=== PATIENT | female | born 1950 | race Caucasian/White ===

== ENCOUNTER 2016-11-12 11:15 | Outpatient (CLI) | payer BC, OTHER ==
[2016-11-12 20:06] LABS: BASOPHILS % (AUTO) 0.7 %; EOSINOPHILS # (AUTO) 0.2 10^3/uL (0.0-0.7); EOSINOPHILS % (AUTO) 3.7 %; HCT - HEMATOCRIT 40.3 % (37.0-47.0); HGB - HEMOGLOBIN 13.3 g/dL (12.0-16.0); LYMPHOCYTES # (AUTO) 1.9 10^3/uL (1.5-3.5); LYMPHOCYTES % (AUTO) 36.3 %; MEAN CORPUSCULAR HEMOGLOBIN 30.3 pg (27.0-31.0); MEAN PLATELET VOLUME 11.6 fL (7.9-10.8); MONOCYTES # (AUTO) 0.4 10^3/uL (0.0-1.0); NEUTROPHILS # (AUTO) 2.7 10^3/uL (1.5-6.6); NEUTROPHILS % (AUTO) 51.3 %; NUCLEATED RED BLOOD CELLS AUTO 0.1 /100WBC; RED BLOOD COUNT 4.39 10^6/uL (4.20-5.40); RED CELL DISTRIBUTION WIDTH 13.1 % (12.0-15.0); UNCORRECTED WHITE BLOOD COUNT 5.3 x10^3/uL; WHITE BLOOD COUNT 5.3 x10^3/uL (4.8-10.8)
[2016-11-12 20:35] LABS: HEMOGLOBIN A1C 1.37 g/dL
[2016-11-12 21:53] LABS: ALBUMIN/GLOBULIN RATIO 1.2 (1.0-2.2); BUN - BLOOD UREA NITROGEN 8 mg/dL (6-20); CALCIUM 9.6 mg/dL (8.5-10.3); CARBON DIOXIDE - CO2 23 mmol/L (21-32); CHLORIDE 101 mmol/L (101-111); CHOL/HDL RATIO 7.4 (<4.4); CHOLESTEROL 406 mg/dL; CREATININE 0.5 mg/dL (0.4-1.0); GFR - MDRD 124 (>89); GLUCOSE 312 mg/dL (70-100); HDL CHOLESTEROL 55 mg/dL; POTASSIUM 4.2 mmol/L (3.5-5.0); SODIUM 134 mmol/L (135-145); TOTAL PROTEIN 7.7 g/dL (6.7-8.2); TRIGLYCERIDES 1040 mg/dL
[2016-11-12 22:21] LABS: LDL CHOLESTEROL,DIRECT 157 mg/dL
== END 2016-11-12 11:16 | disposition home or self-care (01) ==
LOC: LAB.WCP 11:15
PROVIDERS: ATTEND Physician Assistant Medical
DX: E78.00 Pure hypercholesterolemia, unspecified (principal); E11.9 Type 2 diabetes mellitus without complications; E03.9 Hypothyroidism, unspecified; Z79.899 Other long term (current) drug therapy
CPT/HCPCS: 36415; 80053; 80061; 82043; 83036; 84443; 85025

== ENCOUNTER 2016-12-26 13:20 | Outpatient (CLI) | payer BC, OTHER ==
[2016-12-26 19:39] LABS: ALBUMIN/GLOBULIN RATIO 1.3 (1.0-2.2); BILIRUBIN,TOTAL 0.6 mg/dL (0.2-1.0); CALCIUM 9.2 mg/dL (8.5-10.3); CREATININE 0.5 mg/dL (0.4-1.0); POTASSIUM 3.9 mmol/L (3.5-5.0); TOTAL PROTEIN 7.1 g/dL (6.7-8.2)
== END 2016-12-26 13:21 ==
LOC: LAB.WCP 13:20
PROVIDERS: ATTEND Physician Assistant Medical
DX: K74.3 Primary biliary cirrhosis (principal)
CPT/HCPCS: 36415; 80053

== ENCOUNTER 2017-01-22 14:00 | Outpatient (CLI) | payer BC, OTHER ==
[2017-01-22 19:28] LABS: ALBUMIN/GLOBULIN RATIO 1.2 (1.0-2.2); BILIRUBIN,TOTAL 0.8 mg/dL (0.2-1.0); CALCIUM 9.6 mg/dL (8.5-10.3); CREATININE 0.5 mg/dL (0.4-1.0); POTASSIUM 4.5 mmol/L (3.5-5.0)
== END 2017-01-22 14:01 | disposition home or self-care (01) ==
LOC: LAB.WCP 14:00
PROVIDERS: ATTEND Physician Assistant Medical
DX: K74.3 Primary biliary cirrhosis (principal)
CPT/HCPCS: 36415; 80053

== ENCOUNTER 2018-03-11 13:30 | Outpatient (CLI) | payer MEDICARE, OTHER ==
[2018-03-11 18:48] LABS: BASOPHILS % (AUTO) 0.7 %; EOSINOPHILS # (AUTO) 0.2 10^3/uL (0.0-0.7); EOSINOPHILS % (AUTO) 3.1 %; HGB - HEMOGLOBIN 14.4 g/dL (12.0-16.0); LYMPHOCYTES % (AUTO) 32.5 %; MEAN CORPUSCULAR HGB CONC 32.8 g/dL (32.0-36.0); MEAN CORPUSCULAR VOLUME 91.6 fL (81.0-99.0); MEAN PLATELET VOLUME 11.4 fL (7.9-10.8); MONOCYTES # (AUTO) 0.4 10^3/uL (0.0-1.0); MONOCYTES % (AUTO) 7.1 %; NEUTROPHILS # (AUTO) 3.5 10^3/uL (1.5-6.6); NEUTROPHILS % (AUTO) 56.6 %; PLT - PLATELET COUNT 137 10^3/uL (130-450); RED BLOOD COUNT 4.79 10^6/uL (4.20-5.40); RED CELL DISTRIBUTION WIDTH 13.4 % (12.0-15.0); WHITE BLOOD COUNT 6.1 x10^3/uL (4.8-10.8)
[2018-03-11 19:02] LABS: HB2 TOTAL 16.1 g/dL; HEMOGLOBIN A1C 1.25 g/dL; HEMOGLOBIN A1C % 9.3 % (4.6-6.2)
[2018-03-11 19:08] LABS: ALBUMIN 4.3 g/dL (3.2-5.5); ALBUMIN/GLOBULIN RATIO 1.1 (1.0-2.2); ALKALINE PHOSPHATASE 306 IU/L (42-121); ALT ALANINE AMINOTRANSFERASE 113 IU/L (10-60); AST ASPARTATE AMINOTRANSFERASE 93 IU/L (10-42); BILIRUBIN,TOTAL 1.6 mg/dL (0.2-1.0); BUN - BLOOD UREA NITROGEN 11 mg/dL (6-20); CALCIUM 9.7 mg/dL (8.5-10.3); CARBON DIOXIDE - CO2 22 mmol/L (21-32); CHLORIDE 103 mmol/L (101-111); CHOL/HDL RATIO 5.6 (<4.4); CHOLESTEROL 375 mg/dL; CREATININE 0.5 mg/dL (0.4-1.0); GFR - MDRD 124 (>89); GLUCOSE 159 mg/dL (70-100); HDL CHOLESTEROL 67 mg/dL; SODIUM 139 mmol/L (135-145); TOTAL PROTEIN 8.2 g/dL (6.7-8.2)
[2018-03-11 19:28] LABS: LDL CHOLESTEROL,DIRECT 193 mg/dL; LDLD/HDL RATIO 2.9 (<4.4)
== END 2018-03-11 23:59 | disposition home or self-care (01) ==
LOC: LAB.WCP 13:30
PROVIDERS: ATTEND Physician Assistant Medical
DX: E11.9 Type 2 diabetes mellitus without complications (principal); E78.00 Pure hypercholesterolemia, unspecified; E03.9 Hypothyroidism, unspecified; L73.9 Follicular disorder, unspecified
CPT/HCPCS: 36415; 80053; 80061; 82043; 83036; 83721; 84443; 85025

== ENCOUNTER 2018-11-11 15:17 | Outpatient (CLI) | payer MEDICARE, OTHER ==
[2018-11-11 19:22] LABS: HEMOGLOBIN A1C 0.78 g/dL; HEMOGLOBIN A1C % 7.2 % (4.6-6.2)
[2018-11-11 19:48] LABS: ALBUMIN 4.3 g/dL (3.2-5.5); ALBUMIN/GLOBULIN RATIO 1.1 (1.0-2.2); ALKALINE PHOSPHATASE 205 IU/L (42-121); ALT ALANINE AMINOTRANSFERASE 65 IU/L (10-60); AST ASPARTATE AMINOTRANSFERASE 69 IU/L (10-42); BILIRUBIN,TOTAL 1.2 mg/dL (0.2-1.0); BUN - BLOOD UREA NITROGEN 12 mg/dL (6-20); CALCIUM 9.6 mg/dL (8.5-10.3); CARBON DIOXIDE - CO2 23 mmol/L (21-32); CHLORIDE 103 mmol/L (101-111); CHOL/HDL RATIO 3.8 (<4.4); CHOLESTEROL 258 mg/dL; CREATININE 0.5 mg/dL (0.4-1.0); GFR - MDRD 123 (>89); GLUCOSE 101 mg/dL (70-100); HDL CHOLESTEROL 68 mg/dL; LDL CHOLESTEROL,CALCULATED 148 mg/dL; LDL/HDL RATIO 2.2 (<4.4); SODIUM 139 mmol/L (135-145); TOTAL PROTEIN 8.1 g/dL (6.7-8.2); VLDL CHOLESTEROL 42 mg/dL
== END 2018-11-11 15:18 | disposition home or self-care (01) ==
LOC: LAB.WCP 15:17
PROVIDERS: ATTEND Physician Assistant Medical
DX: E11.9 Type 2 diabetes mellitus without complications (principal); E78.00 Pure hypercholesterolemia, unspecified; E03.9 Hypothyroidism, unspecified
CPT/HCPCS: 36415; 80053; 80061; 83036; 83721; 84443

== ENCOUNTER 2019-02-24 11:39 | Outpatient (CLI) | payer MEDICARE, OTHER ==
[2019-02-24 19:23] LABS: ALBUMIN 4.3 g/dL (3.2-5.5); ALBUMIN/GLOBULIN RATIO 1.3 (1.0-2.2); ALKALINE PHOSPHATASE 172 IU/L (42-121); ALT ALANINE AMINOTRANSFERASE 52 IU/L (10-60); AST ASPARTATE AMINOTRANSFERASE 60 IU/L (10-42); BUN - BLOOD UREA NITROGEN 15 mg/dL (6-20); CALCIUM 9.7 mg/dL (8.5-10.3); CARBON DIOXIDE - CO2 26 mmol/L (21-32); CHLORIDE 106 mmol/L (101-111); CHOL/HDL RATIO 3.6 (<4.4); CHOLESTEROL 281 mg/dL; CREATININE 0.5 mg/dL (0.4-1.0); GFR - MDRD 123 (>89); GLUCOSE 104 mg/dL (70-100); HDL CHOLESTEROL 79 mg/dL; LDL CHOLESTEROL,CALCULATED 156 mg/dL; SODIUM 142 mmol/L (135-145); TOTAL PROTEIN 7.6 g/dL (6.7-8.2); VLDL CHOLESTEROL 46 mg/dL
[2019-02-24 19:42] LABS: HEMOGLOBIN A1C 0.85 g/dL; HEMOGLOBIN A1C % 7.7 % (4.6-6.2)
== END 2019-02-24 23:59 | disposition home or self-care (01) ==
LOC: LAB.WCP 11:39
PROVIDERS: ATTEND Physician Assistant Medical
DX: E11.9 Type 2 diabetes mellitus without complications (principal)
CPT/HCPCS: 36415; 80053; 80061; 83036; 83721

== ENCOUNTER 2019-05-08 08:00 | Outpatient (CLI) | payer MEDICARE, OTHER | END 2019-05-08 23:59 | LOC: LAB.R 08:00 | PROVIDERS: ATTEND Nurse Practitioner Family | DX: R30.0 Dysuria (principal) | CPT/HCPCS: 87086; 87181 ==

== ENCOUNTER 2019-05-27 10:09 | Outpatient (CLI) | payer MEDICARE, OTHER ==
[2019-05-27 13:14] LABS: CALCIUM 9.6 mg/dL (8.5-10.3); CREATININE 0.5 mg/dL (0.4-1.0)
[2019-05-27 13:18] LABS: HB2 TOTAL 14.3 g/dL; HEMOGLOBIN A1C 0.89 g/dL; HEMOGLOBIN A1C % 7.8 % (4.6-6.2)
== END 2019-05-27 23:59 | disposition home or self-care (01) ==
LOC: LAB.WCP 10:09
PROVIDERS: ATTEND Physician Assistant Medical
DX: E11.9 Type 2 diabetes mellitus without complications (principal)
CPT/HCPCS: 36415; 80048; 83036

== ENCOUNTER 2019-09-04 15:00 | Outpatient (CLI) | payer MEDICARE, OTHER ==
[2019-09-04 18:27] LABS: CREATININE 0.6 mg/dL (0.4-1.0)
[2019-09-04 18:33] LABS: CREATININE,URINE 68.4 mg/dL; MICROALBUM/CREATININE RATIO,UR 16.1 ug/mg (<30.0); MICROALBUMIN,URINE 1.1 mg/dL (0-300.0)
[2019-09-04 19:01] LABS: HEMOGLOBIN A1C 1.03 g/dL; HEMOGLOBIN A1C % 8.4 % (4.6-6.2)
== END 2019-09-04 23:59 ==
LOC: LAB.WCP 15:00
PROVIDERS: ATTEND Family Medicine
DX: E11.9 Type 2 diabetes mellitus without complications (principal)
CPT/HCPCS: 36415; 80048; 82043; 82570; 83036

== ENCOUNTER 2020-01-01 13:17 | Outpatient (CLI) | payer MEDICARE, OTHER ==
--- NOTE | 2020-01-05 09:42 | Mammography Report ---
BILATERAL DIGITAL SCREENING MAMMOGRAM 3D/2D: 01/01/2020 CLINICAL: Routine screening. Comparison is made to exams dated: 11/02/2013 mammogram, 01/29/2012 mammogram, and 01/14/2012 mammogram - [facility]. There are scattered fibroglandular elements in both breasts. No significant masses, calcifications, or other findings are seen in either breast. There has been no significant interval change. IMPRESSION: NEGATIVE There is no mammographic evidence of malignancy. A 1 year screening mammogram is recommended. This exam was interpreted at Station ID: [id number]. NOTE: For mammograms, a report in lay terms will be sent to the patient. Approximately 15% of breast malignancies will not be visualized mammographically. In the management of a palpable breast mass, a negative mammogram must not discourage biopsy of a clinically suspicious lesion. Electronically Signed By: Reginaldo Hayward M.D., jr/jordi:01/01/2020 15:17:12 ACR BI-RADS Category 1: Negative 3341F PARENCHYMAL PATTERN: (A) - The breast(s) demonstrate(s) scattered fibroglandular densities. BI-RADS CATEGORY: (1) - 1 RECOMMENDATION: (ANNUAL) - Recommend routine annual screening mammography. 20210101 1 year screening LATERALITY: (B)
== END 2020-01-01 13:18 | disposition home or self-care (01) ==
LOC: DI.N 13:17
DX: Z12.31 Encounter for screening mammogram for malignant neoplasm of breast (principal)
CPT/HCPCS: 77063; 77067

== ENCOUNTER 2020-02-13 14:19 | Emergency (ER) | payer MEDICARE, OTHER | END 2020-02-13 15:14 | disposition left against medical advice (07) | LOC: ED 14:19 | DX: Z53.21 Procedure and treatment not carried out due to patient leaving prior to being seen by health care provider (principal) ==

== ENCOUNTER 2020-02-16 09:36 | Inpatient (IN) | payer MEDICARE, OTHER ==
--- NOTE | 2020-02-16 10:13 | ED Physician Documentation ---
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 HEENT: Other - Present Medications Home Medications: Ambulatory Orders Medication Instructions Recorded Confirmed Lidocaine Patch 5% [Lidoderm Patch] 1 - 3 patch TOP DAILY 09/30/12 12/10/16 Sitagliptin Phos/Metformin HCl 2 tab PO DAILY 09/30/12 12/10/16 [Janumet Xr 100-1,000 mg Tablet] Solifenacin Succinate [Vesicare] 10 mg PO HS 09/30/12 12/10/16 Ursodiol [Zafar Forte] 1 tab PO TID 09/30/12 12/10/16 Levothyroxine [Synthroid] 175 mcg PO DAILY 11/04/13 12/10/16 Oxycodone HCl/Acetaminophen 1 each PO Q4HR PRN #10 tablet 11/04/13 12/10/16 [Percocet 5-325 mg Tablet] Loperamide [Imodium] 2 mg PO ONCE PRN 01/05/15 12/10/16 Melatonin 5 mg PO DAILY 01/05/15 12/10/16 Metoclopramide [Reglan] 10 mg PO Q6H PRN 01/05/15 12/10/16 - Allergies Allergies/Adverse Reactions: Allergies Allergy/AdvReac Type Severity Reaction Status Date / Time No Known Drug Allergies Allergy Verified 02/16/20 09:50 - Social History Does the pt smoke?: No Smoking Status: Never smoker Does the pt have substance abuse?: No - POLST Patient has POLST: Yes Results - Vitals Vitals: Vital Signs - 24 hr 02/16/20 09:53 Temperature 36.5 C Heart Rate 121 H Respiratory 16 Rate Blood Pressure 114/57 L O2 Saturation 97 Oxygen O2 Source Room air
[2020-02-16] MEDS ORDERED: SODIUM CHLORIDE 0.9% 1,000 ML IV STA ×2 (10:38→10:41)
[2020-02-16] MEDS ORDERED: FAMOTIDINE 20 MG/2 ML SYRINGE IVP STA (10:40)
--- NOTE | 2020-02-16 10:41 | ED Physician Documentation ---
PD HPI GI BLEED - Stated complaint Stated Complaint: HEAD INJ/NAUSEA/VOMITING - Chief complaint Chief Complaint: Trauma Hd/Nk - History obtained from History obtained from: Patient - History of Present Illness Timing - onset: Today, Yesterday Timing - details: Abrupt onset Associated symptoms: Vomiting (today), Hematemesis, Black/tarry stool (yesterday ) Contributing factors: NSAID use (She had fallen forward into the right with injury of the right ankle and knee 3 days ago and did strike her head. No loss of consciousness. She has been using ibuprofen regularly for the last 3 days for the pains of it. Noted onset of dark stool/ upset stomach last night and vomited blood today.). No: Sick contact, Bad food Improved by: No: Vomiting Worsened by: Eating Similar symptoms before: Has not had sx before Recently seen: Not recently seen Review of Systems Constitutional: denies: Fever, Chills Nose: denies: Rhinorrhea / runny nose, Congestion Throat: denies: Sore throat Cardiac: denies: Chest pain / pressure Respiratory: denies: Dyspnea, Cough GI: reports: Nausea, Vomiting, Hematemesis. denies: Abdominal Pain Musculoskeletal: reports: Extremity pain (right ankle and knee for 3 days). denies: Neck pain, Back pain Neurologic: reports: Generalized weakness (today). denies: Focal weakness, Numbness PD PAST MEDICAL HISTORY - Past Medical History Cardiovascular: None Respiratory: None Endocrine/Autoimmune: Type 2 diabetes, HyPOthyroidism GI: Hepatitis, Other (she denies cirrhosis/varices/upper GI bleed. Prior hepatitis without current elevation LFTs. No alcohol use. 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 HEENT: Other - Present Medications Home Medications: Ambulatory Orders Medication Instructions Recorded Confirmed Lidocaine Patch 5% [Lidoderm Patch] 1 - 3 patch TOP DAILY 09/30/12 12/10/16 Sitagliptin Phos/Metformin HCl 2 tab PO DAILY 09/30/12 12/10/16 [Janumet Xr 100-1,000 mg Tablet] Solifenacin Succinate [Vesicare] 10 mg PO HS 09/30/12 12/10/16 Ursodiol [Zafar Forte] 1 tab PO TID 09/30/12 12/10/16 Levothyroxine [Synthroid] 175 mcg PO DAILY 11/04/13 12/10/16 Oxycodone HCl/Acetaminophen 1 each PO Q4HR PRN #10 tablet 11/04/13 12/10/16 [Percocet 5-325 mg Tablet] Loperamide [Imodium] 2 mg PO ONCE PRN 01/05/15 12/10/16 Melatonin 5 mg PO DAILY 01/05/15 12/10/16 Metoclopramide [Reglan] 10 mg PO Q6H PRN 01/05/15 12/10/16 - Allergies Allergies/Adverse Reactions: Allergies Allergy/AdvReac Type Severity Reaction Status Date / Time No Known Drug Allergies Allergy Verified 02/16/20 09:50 - Social History Does the pt smoke?: No Smoking Status: Never smoker Does the pt have substance abuse?: No - POLST Patient has POLST: Yes PD ED PE NORMAL - Vitals Vital signs reviewed: Yes - General General: Alert and oriented X 3, No acute distress, Well developed/nourished - HEENT HEENT: Other (back of head with 2.5 cm laceration through scalp, without FB nor signs of infection. ) - Neck Neck: Supple, no meningeal sign, No bony TTP, No adenopathy - Cardiac Cardiac: RRR (regular but tachycardic. ), No murmur - Respiratory Respiratory: Clear bilaterally, Other (no chestwall tenderness. ) - Abdomen Abdomen: Soft, Non distended, Other (mild tenderness epigastric area without guarding. ). No: Normal bowel sounds (decreased) - Back Back: No CVA TTP, No spinal TTP - Derm Derm: Normal color, Warm and dry - Extremities Extremities: Other (right ankle with some lateral tenderness, no swelling, no deformity. Right knee with some anterior tenderness without efffusion nor bony tenderness. No laxity on stress testing. ) - Neuro Neuro: Alert and oriented X 3, No motor deficit, No sensory deficit, Normal speech Results - Vitals Vitals: Vital Signs - 24 hr 02/16/20 02/16/20 02/16/20 09:53 10:26 10:30 Temperature 36.5 C Heart Rate 121 H 117 H 114 H Respiratory 16 26 H 22 Rate Blood Pressure 114/57 L 109/71 100/72 O2 Saturation 97 98 96 02/16/20 02/16/20 02/16/20 11:00 11:30 12:00 Temperature Heart Rate 113 H 108 H 108 H Respiratory 23 22 23 Rate Blood Pressure 98/66 121/65 106/71 O2 Saturation 96 97 100 02/16/20 02/16/20 02/16/20 12:30 13:00 13:30 Temperature Heart Rate 105 H 104 H 104 H Respiratory 22 20 27 H Rate Blood Pressure 95/51 L 107/59 L 128/72 O2 Saturation 97 97 95 Oxygen O2 Source Room air - Labs Labs: Laboratory Tests 02/16/20 02/16/20 02/16/20 10:08 10:08 10:08 WBC 11.2 H RBC 4.15 L Hgb 12.6 Hct 39.7 MCV 95.7 MCH 30.4 MCHC 31.7 L RDW 13.2 Plt Count 184 MPV 13.0 H Neut # (Auto) 6.7 H Lymph # (Auto) 3.2 [place] # (Auto) 0.9 Eos # (Auto) 0.4 Baso # (Auto) 0.1 Absolute Nucleated RBC 0.00 Nucleated RBC % 0.0 Sodium 134 L Potassium 4.7 Chloride 100 L Carbon Dioxide 21 Anion Gap 13.0 BUN 45 H Creatinine 0.7 Estimated GFR (MDRD) 83 L Glucose 337 H Calcium 9.3 Total Bilirubin 1.3 H AST 53 H ALT 62 H Alkaline Phosphatase 221 H Total Protein 7.1 Albumin 3.7 Globulin 3.4 Albumin/Globulin Ratio 1.1 Lipase 47 Urine Color Urine Clarity Urine pH Ur Specific [place] Urine Protein Urine Glucose (UA) Urine Ketones Urine Occult Blood Urine Nitrite Urine Bilirubin Urine Urobilinogen Ur Leukocyte Esterase Urine RBC Urine WBC Ur Squamous Epith Cells Urine Bacteria Ur Microscopic Review Urine Culture Comments Urine Opiates Screen Ur Oxycodone Screen Urine Methadone Screen Ur Propoxyphene Screen Ur Barbiturates Screen Ur Tricyclics Screen Ur Phencyclidine Scrn Ur Amphetamine Screen U Methamphetamines Scrn U Benzodiazepines Scrn Urine Cocaine Screen U Cannabinoids Screen Serum Ketones Blood Type Blood Type Recheck O POSITIVE Antibody Screen 02/16/20 02/16/20 02/16/20 10:08 10:53 12:10 WBC RBC Hgb Hct MCV MCH MCHC RDW Plt Count MPV Neut # (Auto) Lymph # (Auto) [place] # (Auto) Eos # (Auto) Baso # (Auto) Absolute Nucleated RBC Nucleated RBC % Sodium Potassium Chloride Carbon Dioxide Anion Gap BUN Creatinine Estimated GFR (MDRD) Glucose Calcium Total Bilirubin AST ALT Alkaline Phosphatase Total Protein Albumin Globulin Albumin/Globulin Ratio Lipase Urine Color YELLOW Urine Clarity CLEAR Urine pH 5.0 Ur Specific [place] <=1.005 Urine Protein NEGATIVE Urine Glucose (UA) >=1000 H Urine Ketones 15 H Urine Occult Blood NEGATIVE Urine Nitrite POSITIVE H Urine Bilirubin NEGATIVE Urine Urobilinogen 0.2 (NORMAL) Ur Leukocyte Esterase NEGATIVE Urine RBC None Seen Urine WBC 6-10 H Ur Squamous Epith Cells MOD Squamous H Urine Bacteria Rare Ur Microscopic Review INDICATED Urine Culture Comments NOT INDICATED Urine Opiates Screen Ur Oxycodone Screen Urine Methadone Screen Ur Propoxyphene Screen Ur Barbiturates Screen Ur Tricyclics Screen Ur Phencyclidine Scrn Ur Amphetamine Screen U Methamphetamines Scrn U Benzodiazepines Scrn Urine Cocaine Screen U Cannabinoids Screen Serum Ketones NEGATIVE Blood Type O POSITIVE Blood Type Recheck Antibody Screen NEGATIVE 02/16/20 12:10 WBC RBC Hgb Hct MCV MCH MCHC RDW Plt Count MPV Neut # (Auto) Lymph # (Auto) [place] # (Auto) Eos # (Auto) Baso # (Auto) Absolute Nucleated RBC Nucleated RBC % Sodium Potassium Chloride Carbon Dioxide Anion Gap BUN Creatinine Estimated GFR (MDRD) Glucose Calcium Total Bilirubin AST ALT Alkaline Phosphatase Total Protein Albumin Globulin Albumin/Globulin Ratio Lipase Urine Color Urine Clarity Urine pH Ur Specific [place] Urine Protein Urine Glucose (UA) Urine Ketones Urine Occult Blood Urine Nitrite Urine Bilirubin Urine Urobilinogen Ur Leukocyte Esterase Urine RBC Urine WBC Ur Squamous Epith Cells Urine Bacteria Ur Microscopic Review Urine Culture Comments Urine Opiates Screen NEGATIVE Ur Oxycodone Screen NEGATIVE Urine Methadone Screen NEGATIVE Ur Propoxyphene Screen NEGATIVE Ur Barbiturates Screen NEGATIVE Ur Tricyclics Screen NEGATIVE Ur Phencyclidine Scrn NEGATIVE Ur Amphetamine Screen NEGATIVE U Methamphetamines Scrn NEGATIVE U Benzodiazepines Scrn NEGATIVE Urine Cocaine Screen NEGATIVE U Cannabinoids Screen NEGATIVE Serum Ketones Blood Type Blood Type Recheck Antibody Screen - Rads (name of study) right ankle Radiology: Prelim report reviewed (no fractures), See rad report right knee Radiology: Prelim report reviewed (no fractures), See rad report head CT Radiology: Prelim report reviewed (no ICH nor acute process), See rad report abd CT Radiology: Prelim report reviewed (normal liver. some liver steatosis. No masses. s/p CCY. ), See rad report Procedures - Laceration (location) scalp Length in cm: 2.5 Wound type: Into subcut fat, Clean Anesthesia: Lidocaine 1% with epi Wound Preparation: Wound explored, To the base. No: FB identified Skin layer closure: Nylon, Adam Other: Patient tolerated well, Tetanus UTD Complexity: Simple PD MEDICAL DECISION MAKING - ED course Complexity details: reviewed results, re-evaluated patient, considered differential (Patient reports hematemesis today of moderate amount to a large amount and some dark stool yesterday. We will obtain stools test for guaiac. However she pretty clearly describes hematemesis and is tachycardic with a slightly low blood pressure), d/w patient ED course: She has been using NSAIDs status post ankle knee and head injury 3 days ago and now has apparent upper GI bleed. Presumed NSAID induced gastritis or ulcer. She is given IV medications for this as well as IV fluids and antiemetic. Am concerned about the persistent tachycardia even after fluids and the worried about the degree of ongoing bleeding inapparent clinically due to GI location. Departure - Departure Disposition: [facility] DC/Xfer Clinical Impression: Upper GI bleeding, Tachycardia Ankle sprain Qualifiers: Encounter type: initial encounter Involved ligament of ankle: unspecified ligament Laterality: right Qualified Code(s): S93.401A - Sprain of unspecified ligament of right ankle, initial encounter Scalp laceration Qualifiers: Encounter type: initial encounter Qualified Code(s): S01.01XA - Laceration without foreign body of scalp, initial encounter Fall from slip, trip, or stumble Qualifiers: Encounter type: initial encounter Qualified Code(s): W01.0XXA - Fall on same level from slipping, tripping and stumbling without subsequent striking against object, initial encounter Hematemesis Qualifiers: Nausea presence: with nausea Qualified Code(s): K92.0 - Hematemesis Condition: Stable Record reviewed to determine appropriate education?: Yes Discharge Date/Time: 02/16/20 14:10
[2020-02-16 10:50] LABS: BASOPHILS # (AUTO) 0.1 10^3/uL (0.0-0.1); BASOPHILS % (AUTO) 0.8 %; EOSINOPHILS # (AUTO) 0.4 10^3/uL (0.0-0.7); EOSINOPHILS % (AUTO) 3.2 %; HGB - HEMOGLOBIN 12.6 g/dL (12.0-16.0); LYMPHOCYTES # (AUTO) 3.2 10^3/uL (1.5-3.5); LYMPHOCYTES % (AUTO) 28.1 %; MEAN CORPUSCULAR HEMOGLOBIN 30.4 pg (27.0-31.0); MEAN CORPUSCULAR HGB CONC 31.7 g/dL (32.0-36.0); MEAN CORPUSCULAR VOLUME 95.7 fL (81.0-99.0); MONOCYTES # (AUTO) 0.9 10^3/uL (0.0-1.0); MONOCYTES % (AUTO) 7.6 %; NEUTROPHILS # (AUTO) 6.7 10^3/uL (1.5-6.6); NEUTROPHILS % (AUTO) 59.6 %; PLT - PLATELET COUNT 184 10^3/uL (130-450); RED BLOOD COUNT 4.15 10^6/uL (4.20-5.40); RED CELL DISTRIBUTION WIDTH 13.2 % (12.0-15.0); WHITE BLOOD COUNT 11.2 x10^3/uL (4.8-10.8)
[2020-02-16] MEDS ORDERED: IOVERSOL 320 100 ML VIAL IVP ONE ×2 (10:53→18:48)
[2020-02-16 11:00] LABS: ALBUMIN 3.7 g/dL (3.2-5.5); ALBUMIN/GLOBULIN RATIO 1.1 (1.0-2.2); BILIRUBIN,TOTAL 1.3 mg/dL (0.2-1.0); CALCIUM 9.3 mg/dL (8.5-10.3); CREATININE 0.7 mg/dL (0.4-1.0); TOTAL PROTEIN 7.1 g/dL (6.7-8.2)
--- NOTE | 2020-02-16 11:19 | XRAY Report ---
PROCEDURE: Ankle 3 View RT INDICATIONS: Trauma, fall with ankle and knee injury TECHNIQUE: 3 views of the ankle were acquired. COMPARISON: None FINDINGS: Bones: No fractures or dislocations. Ankle mortise is normally aligned. No suspicious bony lesions . Soft tissues: No tibiotalar joint effusion. Achilles tendon appears normal. IMPRESSION: No acute finding. Reviewed by: Reginaldo Hayward MD on 02/16/2020 11:17 AM PDT Approved by: Reginaldo Hayward MD on 02/16/2020 11:17 AM PDT Station ID: [id number]
--- NOTE | 2020-02-16 11:20 | XRAY Report ---
PROCEDURE: Knee 3 View RT INDICATIONS: Trauma, fall with ankle/knee injury TECHNIQUE: 3 views of the right knee(s) were acquired. COMPARISON: None. FINDINGS: Bones: No fractures or dislocations. No suspicious bony lesions. Soft tissues: No joint effusion. No suspicious soft tissue calcifications. IMPRESSION: No acute finding. Reviewed by: Reginaldo Hayward MD on 02/16/2020 11:18 AM PDT Approved by: Reginaldo Hayward MD on 02/16/2020 11:18 AM PDT Station ID: [id number]
--- NOTE | 2020-02-16 11:24 | CT Report ---
PROCEDURE: HEAD WO INDICATIONS: Trauma, fall, struck head; vomiting TECHNIQUE: Noncontrast 4.5 mm thick angled axial sections acquired from the foramen magnum to the vertex. For r adiation dose reduction, the following was used: automated exposure control, adjustment of mA and/or kV according to patient size. COMPARISON: None. FINDINGS: Image quality: Excellent. CSF spaces: Basal cisterns are patent. No extra-axial fluid collections. Ventricles are normal in size and shape. Brain: No midline shift. No intracranial masses or hemorrhage. Momin-white matter interface is norm al. Skull and face: Calvarium and visualized facial bones are intact, without suspicious lesions. Sinuses: Visualized sinuses and mastoids are clear. IMPRESSION: No acute intracranial finding. Reviewed by: Reginaldo Hayward MD on 02/16/2020 11:23 AM PDT Approved by: Reginaldo Hayward MD on 02/16/2020 11:23 AM PDT Station ID: [id number]
--- NOTE | 2020-02-16 12:05 | CT Report ---
PROCEDURE: Abdomen/Pelvis W INDICATIONS: Abdominal pain, acute, nonlocalized CONTRAST: IV CONTRAST: Optiray 320 ml: 100 PO CONTRAST: *NO PO CONTRAST TECHNIQUE: After the administration of weight appropriate dose of intravenous contrast, 5 mm thick sections acqu ired from the diaphragms to the symphysis. 5 mm thick coronal and sagittal reformats were acquired. For radiation dose reduction, the following was used: automated exposure control, adjustment of mA and/or kV according to patient size. COMPARISON: None. FINDINGS: Image quality: Excellent. ABDOMEN: Lung bases: Lung bases are clear. Heart size is normal. Solid organs: Liver and spleen are normal in size and enhancement. Diffuse hepatic steatosis. Gallbl adder is surgically absent. Biliary system is non dilated. Pancreas enhances normally. No adrenal nodules. Coarse adrenal calcifications are visualized bilaterally. This is likely related to sequela of remote infection/inflammation or hemorrhage. Kidneys demonstrate normal size and enhancement, with out hydronephrosis. Peritoneum and bowel: Scattered colonic diverticulosis with minimal peridiverticular stranding in the left paracolic gutter involving a short segment of the mid to distal descending colon. No evidence f or perforation or abscess formation. There is also a segment of nonspecific circumferential wall thic kening and minimal fluid/. Distention of the loop of proximal small bowel in the mid abdomen. Otherwi se, visualized bowel loops demonstrate normal wall thickness and caliber. No free fluid or air. Norm al appendix. Nodes and vessels: No retroperitoneal or mesenteric adenopathy by size criteria. Aorta and inferior vena cava are normal in size. Scattered atherosclerotic calcifications of the abdominal aorta Miscellaneous: No ventral hernias. Apparent postsurgical changes near the midline ventral abdomen a t the level of the umbilicus. PELVIS: Genitourinary: Bladder wall thickness is normal. Surgical clips noted in the left pelvis sidewall. Miscellaneous: No inguinal hernias or adenopathy. Bones: No suspicious bony lesions. No acute vertebral body compression fractures. Multilevel spondy losis. IMPRESSION: 1. Scattered colonic diverticula with minimal peridiverticular stranding involving a segment of mid t o distal descending colon compatible with acute diverticulitis. No evidence for perforation or absces s formation. 2. A segment of circumferential minimal bowel wall thickening with fluid/air distention of a segment of proximal small bowel in the midabdomen which may be related to peristalsis versus nonspecific ente ritis either infectious or inflammatory. 3. Normal appendix. 4. Status post cholecystectomy. 5. Other chronic findings as above. Reviewed by: Dustin Martin MD on 02/16/2020 12:04 PM PDT Approved by: Dustin Martin MD on 02/16/2020 12:04 PM PDT Station ID: [id number]
[2020-02-16] MEDS ORDERED: PANTOPRAZOLE 40 MG VIAL IVP STA (12:08)
[2020-02-16 12:29] LABS: BILIRUBIN,URINE NEGATIVE (NEGATIVE); GLUCOSE, URINE (UA) >=1000 mg/dL (NEGATIVE); KETONES,URINE (UA) 15 mg/dL (NEGATIVE); LEUKOCYTE ESTERASE, URINE NEGATIVE (NEGATIVE); NITRITE,URINE POSITIVE (NEGATIVE); OCCULT BLOOD,URINE NEGATIVE (NEGATIVE); PROTEIN,URINE NEGATIVE (NEGATIVE); UROBILINOGEN,URINE 0.2 (NORMAL) E.U./dL (NORMAL)
[2020-02-16 12:33] LABS: CLARITY,URINE CLEAR (CLEAR)
[2020-02-16] MEDS ORDERED: LIDOCAINE 1%-EPI 1:100000 20 ML MDV SUBQ STA (12:34)
[2020-02-16 12:43] LABS: BACTERIA,URINE Rare /HPF (None Seen); RBC,URINE None Seen /HPF (0-5); SQUAMOUS EPITHELIAL CELL,UR MOD Squamous (<= Few)
[2020-02-16] MEDS ORDERED: ACETAMINOPHEN 325 MG TABLET PO PRN (13:33)
[2020-02-16] MEDS ORDERED: ONDANSETRON 4 MG/2 ML VIAL IVP PRN (13:33)
[2020-02-16] MEDS ORDERED: SODIUM CHLORIDE FLUSH 0.9% 10 ML SYRINGE IVP PRN (13:33)
[2020-02-16] MEDS ORDERED: INSULIN ASPART 300 UNIT/3 ML PEN SUBQ ONE (13:39)
[2020-02-16 13:45] LABS: MUDS CUTOFF CONCENTRATIONS CUTOFF CONC BELOW:
[2020-02-16 14:00] LABS: AMPHETAMINE SCREEN,URINE NEGATIVE (NEGATIVE); BENZODIAZEPINES SCREEN, URINE NEGATIVE (NEGATIVE); COCAINE SCREEN URINE NEGATIVE (NEGATIVE); METHADONE SCREEN, URINE NEGATIVE (NEGATIVE); METHAMPHETAMINES SCREEN, URINE NEGATIVE (NEGATIVE); OPIATE SCREEN, URINE NEGATIVE (NEGATIVE); OXYCODONE SCREEN, URINE NEGATIVE (NEGATIVE); PROPOXYPHENE SCREEN, URINE NEGATIVE (NEGATIVE); TRICYCLIC ANTIDEPRESSANT,URINE NEGATIVE (NEGATIVE)
[2020-02-16] MEDS: SODIUM CHLORIDE 0.9% 1,000 ML IV SCH (14:20)
--- NOTE | 2020-02-16 14:33 | HISTORY & PHYSICAL EXAMINATION ---
Chief Complaint - Chief Complaint Chief Complaint: GI bleed History of Present Illness - Admitted From Admitted From:: ER - History Obtained From Records Reviewed: [facility] History obtained from: pt Exam Limitations: no - History of Present Illness HPI Comment/Other: This is a 78-old female with a past medical history significant for diabetes 2, hypothyroidism, chronic hepatitis from previous food poisoning, Osteoarthritis, who present ER Complaint of fall in home, vomiting blood and dark stool. Patient reported she had a fall in the home, hit of her head and right ankle. CT of the head and x-ray of the ankle was unremarkable. Patient reported she might also loss of conscious but she did not ensure When she had a fall in the home. Because of pain in the head and right ankle from the fall, then she took ibuprofen for 3 days. She took 800 mg ibuprofen every 6 hours for 3 days.Then today she had 3 times vomiting with blood. She also reported she had dark stool with diarrhea on today but no diarrhea right now. She also reported some abdominal discomfort and pain in her low abdominal area. She denies chest pain, fever, short of shortness of breathing. X-ray of ankle, knee, T of the brain, chest x-ray are all unremarkable. CAT scan of the abdomen show distal descending colon compatible with acute diverticulitis, No evidence for perforation or abscess formation. A segment of circumferential minimal bowel wall thickening with fluids air distention of segment of proximal small bowel which may be related to enteritis of infection or inflammation. Patient was admitted for evaluation and treatment of GI bleed, and fall. Discussed the care goal with the patient, patient state she want full code. History - Past Medical History Cardiovascular: reports: None Respiratory: reports: None Endocrine/Autoimmune: reports: Type 2 diabetes, HyPOthyroidism GI: reports: Hepatitis, Other (she denies cirrhosis/varices/upper GI bleed. Prior hepatitis without current elevation LFTs. No alcohol use. 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 Her mother from dialysis complication and pneumonia at age 82. Social History Notes: Patient report she quit smoking 20 years ago, she deny alcohol or drug issue. She is living with her at [place], she had her 2 children - POLST Patient has POLST: Yes Meds/Allgy - Home Medications Home Medications: Ambulatory Orders Medication Instructions Recorded Confirmed Lidocaine Patch 5% [Lidoderm Patch] 1 - 3 patch TOP DAILY 09/30/12 12/10/16 Sitagliptin Phos/Metformin HCl 2 tab PO DAILY 09/30/12 12/10/16 [Janumet Xr 100-1,000 mg Tablet] Solifenacin Succinate [Vesicare] 10 mg PO HS 09/30/12 12/10/16 Ursodiol [Zafar Forte] 1 tab PO TID 09/30/12 12/10/16 Levothyroxine [Synthroid] 175 mcg PO DAILY 11/04/13 12/10/16 Oxycodone HCl/Acetaminophen 1 each PO Q4HR PRN #10 tablet 11/04/13 12/10/16 [Percocet 5-325 mg Tablet] Loperamide [Imodium] 2 mg PO ONCE PRN 01/05/15 12/10/16 Melatonin 5 mg PO DAILY 01/05/15 12/10/16 Metoclopramide [Reglan] 10 mg PO Q6H PRN 01/05/15 12/10/16 - Allergies Allergies/Adverse Reactions: Allergies Allergy/AdvReac Type Severity Reaction Status Date / Time No Known Drug Allergies Allergy Verified 02/16/20 09:50 Review of Systems - Constitutional Constitutional: reports: Fatigue, Weakness. denies: Fever, Chills, Poor appetite, Night sweats - Eyes Eyes: denies: Pain, Field loss, Vision loss - Ears, Nose & Throat Ears, Nose & Throat: denies: Ear pain, Nasal pain, Nosebleeds, Mouth lesions, Bleeding gums - Cardiovascular Cariovascular: reports: Syncope. denies: Irregular heart rate, Palpitations, Chest pain, Edema, Lightheadedness, Exertional dyspnea, Decr. exercise tolerance - Respiratory Respiratory: denies: Cough, Sputum production, Wheezing, Hemoptysis, Orthopnea, SOB at rest, SOB with exertion - Gastrointestinal Gastrointestinal: reports: Abdominal pain, Diarrhea, Black stools, Nausea, Vomiting, Coffee grounds emesis. denies: Constipation, Change in bowel habits, Rectal bleeding, Bloody stools, Brad blood emesis - Genitourinary Genitourinary: denies: Dysuria, Hematuria - Musculoskeletal Musculoskeletal: reports: Joint swelling. denies: Muscle pain, Limited range of motion, Muscle weakness - Integumentary Integumentary: denies: Rash, Dryness - Neurological Neurological: reports: General weakness. denies: Focal weakness, Headache, Dizziness, Numbness, Memory problems, Pre-existing deficit, Abnormal gait, Seiz ures, Incoordination, Slurred speech - Psychiatric Psychiatric: denies: Suicidal, Delusions, Hallucinations - Endocrine Endocrine: denies: Polyuria - Hematologic/Lymphatic Hematologic/Lymphatic: denies: Bruising, Blood clots Exam - Vital Signs Vital Signs: Vital Signs x48h Temp Pulse Pulse Resp BP BP Pulse Ox 02/16/20 14:22 37.1 C 108 H 17 117/63 98 02/16/20 14:00 37.1 C 105 H 24 122/100 H 100 02/16/20 13:30 104 H 27 H 128/72 95 02/16/20 13:00 104 H 20 107/59 L 97 02/16/20 12:30 105 H 22 95/51 L 97 02/16/20 12:00 108 H 23 106/71 100 02/16/20 11:30 108 H 22 121/65 97 02/16/20 11:00 113 H 23 98/66 96 02/16/20 10:30 114 H 22 100/72 96 02/16/20 10:26 117 H 26 H 109/71 98 02/16/20 09:53 36.5 C 121 H 16 114/57 L 97 - Physical Exam General Appearance: positive: No acute distress, Alert. negative: Lethargic Eyes Bilateral: positive: Normal inspection, PERRL, No lid inflammation ENT: positive: ENT inspection nml, No signs of dehydration. negative: Purulent nasal drainage Neck: positive: Nml inspection, Thyroid nml, Trachea midline. negative: Thyro megaly, Stiff neck, Tracheal deviation Respiratory: positive: Chest non-tender, No respiratory distress, Breath sounds nml. negative: Wheezes, Rales, Rhonchi Cardiovascular: positive: Regular rate & rhythm, Tachycardia. negative: No murmur, No gallop, Irregularly irregular, Bradycardia, Systolic murmur, Diastolic murmur Peripheral Pulses: positive: 2+ Abdomen: positive: Non-tender, No organomegaly, Nml bowel sounds, No distention. negative: Tenderness Back: positive: Nml inspection Skin: positive: Color nml, No rash, Warm, Dry. negative: Cyanosis, Diaphoresis, Pallor Extremities: positive: Non-tender, Nml appearance. negative: Calf tenderness Neurologic/Psychiatric: positive: Oriented x3, Sensation nml, Mood/affect nml. negative: Weakness, Sensory loss, Facial droop, Slurred/abnml speech, Depressed mood/affect Conclusion/Plan - Problem List (1) Hematemesis Conclusion/Plan: Patient reported she had three times of vomiting of blood after She take lots of ibuprofen. She reported she take 800 mg ibuprofen every 6 hours for 3 days. GHGB is 12.6 now. We will hold NSAIDs, Started with Protonix intravenous twice daily, Continue H&H to monitor hemoglobin, Consult with surgeon. Qualifiers: Nausea presence: with nausea Qualified Code(s): K92.0 - Hematemesis (2) Dark stools Conclusion/Plan: Patient reported she had a dark stool in the home, likely from upper GI bleed. Patient had a BUN 45. We will give patient IV Protonix, H&H monitor hemoglobin.Consult with GI surgeon (3) Tachycardia Conclusion/Plan: Patient had a tachycardia below 110. EKG showed sinus tachycardia. Likely from patient GI bleed, decreased hemoglobin. Patient denying chest pain, shortness of breathing. We will continue director web patient. We will do echo for patient since patient did not show she lost conscious when she had a fall in the home. (4) Fall Conclusion/Plan: Patient reported she had a fall in the home, all imaging studies including CAT scan of the head, ankle and knee x-ray show unremarkable.Patient was not sure if she lost consciousness when she had a fall in the home. Patient denying seizure at home. EKG shows sinus tachycardia, rhythm below 110. We will order echo to monitor patient. order physical therapist and occupational therapist evaluation and treatment for patient in the prevention of fall. (5) Diverticulitis Conclusion/Plan: Patient reported lower GI with uncomfortable and pain, patient had slightly elevated WBC, CAT scan of the abdomen show descending colon diverticulitis. We will start with patient Cipro and Flagyl, Liquid diet. (6) Chronic hepatitis Conclusion/Plan: Patient had slightly elevated total bili, AST, ALT, alkaline phosphate. Patient reported she had a chronic hepatitis, she reported this was from her food poison in the before. We will continue CMP monitor. (7) Diabetes Conclusion/Plan: Patient did not take insulin at home,Patient had an elevated glucose level at 337. We will give the patient 8 units of Novolog, Started with slide scale, glucose check, hypoglycemia protocol (8) Hypothyroidism Conclusion/Plan: We will check TSH, resume home Synthroid after Pharmacy confirm - Lab Results Fish Bones: 02/16/20 16:06 02/16/20 10:08 Core Measures - Anticipated LOS I expect patient to be DC'd or transferred within 96 hours.: Yes - DVT/VTE - Prophylaxis VTE/DVT Device ordered at admit?: Yes Not Ordered - Patient Reason: Personal beliefs
[2020-02-16] MEDS: metroNIDAZOLE 500 MG/100 ML 500 MG/100 ML BAG IV SCH ×2 (14:54→21:41)
--- NOTE | 2020-02-16 15:22 | XRAY Report ---
PROCEDURE: Chest 1 View X-Ray INDICATIONS: SOB TECHNIQUE: One view of the chest was acquired. COMPARISON: None. FINDINGS: Surgical changes and devices: None. Lungs and pleura: No pleural effusions or pneumothorax. Lungs are clear. Mediastinum: Mediastinal contours appear normal. Heart size is normal. Bones and chest wall: No suspicious bony lesions. Overlying soft tissues appear unremarkable. IMPRESSION: Normal for age, source of current symptoms is not seen. Reviewed by: Paulie Delaney MD on 02/16/2020 3:21 PM PDT Approved by: Paulie Delaney MD on 02/16/2020 3:21 PM PDT Station ID: [id number]
[2020-02-16 16:18] LABS: HGB - HEMOGLOBIN 9.7 g/dL (12.0-16.0)
[2020-02-16] MEDS: CIPROFLOXACIN 400 MG/200 ML 400 MG/200 ML BAG IV SCH (16:34)
[2020-02-16] MEDS: SODIUM CHLORIDE FLUSH 0.9% 10 ML SYRINGE IVP SCH (16:35)
[2020-02-16] MEDS: INSULIN ASPART 300 UNIT/3 ML PEN SUBQ SCH ×2 (17:27→21:40)
--- NOTE | 2020-02-16 17:52 | HISTORY & PHYSICAL EXAMINATION ---
Chief Complaint - Chief Complaint Chief Complaint: threw up blood twice this am GI Bleed Admit Template - History Obtained From Records Reviewed: Other () History obtained from: Patient Exam limitations: No limitations - History of Present Illness Bleeding quality: reports: Brad blood emesis (twice this am. not since and no bm since) Timing: reports: Abrupt onset (prior to breakfast) Improved with: reports: Rest Associated symptoms: reports: Other (none. she denies upper intestinal or lower intestinal symptoms no pain on swallowing, trouble swallowing, weight loss, etc. she states she use to have IBS type symptoms years ago) PMH/PSH - Past Medical History Cardiovascular: positive: None Respiratory: positive: None Neuro: positive: Head injury, Headaches Endocrine/Autoimmune: positive: Type 2 diabetes, HyPOthyroidism GI: positive: Hepatitis, Other (she denies cirrhosis/varices/upper GI bleed. Prior hepatitis without current elevation LFTs. No alcohol use. 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 HEENT: positive: Other Social & Family Hx - Social History Does the pt smoke?: No Smoking Status: Never smoker Does the pt have substance abuse?: No - POLST Patient has POLST: Yes Meds/Allgy - Home Medications Home Medications: Ambulatory Orders Medication Instructions Recorded Confirmed Lidocaine Patch 5% [Lidoderm Patch] 1 - 3 patch TOP DAILY PRN 09/30/12 12/10/16 Sitagliptin Phos/Metformin HCl 2 tab PO DAILY 09/30/12 12/10/16 [Janumet Xr 100-1,000 mg Tablet] Ursodiol [Zafar Forte] 500 tab PO TID 09/30/12 12/10/16 Empagliflozin [Jardiance] 25 mg PO DAILY 02/16/20 Levothyroxine Sodium [Synthroid] 150 mcg PO 02/16/20 - Allergies Allergies/Adverse Reactions: Allergies Allergy/AdvReac Type Severity Reaction Status Date / Time No Known Drug Allergies Allergy Verified 02/16/20 09:50 Review of Systems - Constitutional Constitutional: reports: Other (felt well until this am other than sore from a fall a couple days ago 10 pt ros as above otherwise unremarkable) Exam - Vital Signs Reviewed Vital Signs: Yes Vital Signs: Vital Signs x48h Temp Pulse Pulse Resp BP BP Pulse Ox 02/16/20 14:22 37.1 C 108 H 17 117/63 98 02/16/20 14:00 37.1 C 105 H 24 122/100 H 100 02/16/20 13:30 104 H 27 H 128/72 95 02/16/20 13:00 104 H 20 107/59 L 97 02/16/20 12:30 105 H 22 95/51 L 97 02/16/20 12:00 108 H 23 106/71 100 02/16/20 11:30 108 H 22 121/65 97 02/16/20 11:00 113 H 23 98/66 96 02/16/20 10:30 114 H 22 100/72 96 02/16/20 10:26 117 H 26 H 109/71 98 02/16/20 09:53 36.5 C 121 H 16 114/57 L 97 - Physical Exam General Appearance: positive: No acute distress, Alert Eyes Bilateral: positive: Normal inspection, PERRL, EOMI ENT: positive: No signs of dehydration Neck: positive: No JVD Respiratory: positive: No respiratory distress Abdomen: positive: Non-tender, No distention Neurologic/Psychiatric: positive: Oriented x3 Results - Lab Results Fish Bones: 02/16/20 16:06 02/16/20 10:08 Other Lab Results: Lab Results x24hrs 02/16/20 02/16/20 02/16/20 Range/Units 17:08 16:06 14:51 WBC (4.8-10.8) x10^3/uL RBC (4.20-5.40) 10^6/uL Hgb 9.7 L (12.0-16.0) g/dL Hct 29.5 L (37.0-47.0) % MCV (81.0-99.0) fL MCH (27.0-31.0) pg MCHC (32.0-36.0) g/dL RDW (12.0-15.0) % Plt Count (130-450) 10^3/uL MPV (7.9-10.8) fL Neut # (Auto) (1.5-6.6) 10^3/uL Lymph # (Auto) (1.5-3.5) 10^3/uL [place] # (Auto) (0.0-1.0) 10^3/uL Eos # (Auto) (0.0-0.7) 10^3/uL Baso # (Auto) (0.0-0.1) 10^3/uL Absolute Nucleated RBC x10^3/uL Nucleated RBC % /100WBC Sodium (135-145) mmol/L Potassium (3.5-5.0) mmol/L Chloride (101-111) mmol/L Carbon Dioxide (21-32) mmol/L Anion Gap (6-13) BUN (6-20) mg/dL Creatinine (0.4-1.0) mg/dL Estimated GFR (MDRD) (>89) Glucose (70-100) mg/dL POC Whole Bld Glucose 172 H 202 H (70 - 100) mg/dL Calcium (8.5-10.3) mg/dL Total Bilirubin (0.2-1.0) mg/dL AST (10-42) IU/L ALT (10-60) IU/L Alkaline Phosphatase (42-121) IU/L Total Protein (6.7-8.2) g/dL Albumin (3.2-5.5) g/dL Globulin (2.1-4.2) g/dL Albumin/Globulin Ratio (1.0-2.2) Lipase (22-51) U/L Urine Color Urine Clarity (CLEAR) Urine pH (5.0-7.5) PH Ur Specific [place] (1.002-1.030) Urine Protein (NEGATIVE) mg/dL Urine Glucose (UA) (NEGATIVE) mg/dL Urine Ketones (NEGATIVE) mg/dL Urine Occult Blood (NEGATIVE) Urine Nitrite (NEGATIVE) Urine Bilirubin (NEGATIVE) Urine Urobilinogen (NORMAL) E.U./dL Ur Leukocyte Esterase (NEGATIVE) Urine RBC (0-5) /HPF Urine WBC (0-5) /HPF Ur Squamous Epith Cells (<= Few) Urine Bacteria (None Seen) /HPF Ur Microscopic Review Urine Culture Comments Urine Opiates Screen (NEGATIVE) Ur Oxycodone Screen (NEGATIVE) Urine Methadone Screen (NEGATIVE) Ur Propoxyphene Screen (NEGATIVE) Ur Barbiturates Screen (NEGATIVE) Ur Tricyclics Screen (NEGATIVE) Ur Phencyclidine Scrn (NEGATIVE) Ur Amphetamine Screen (NEGATIVE) U Methamphetamines Scrn (NEGATIVE) U Benzodiazepines Scrn (NEGATIVE) Urine Cocaine Screen (NEGATIVE) U Cannabinoids Screen (NEGATIVE) Serum Ketones (NEGATIVE) Blood Type Blood Type Recheck Antibody Screen 02/16/20 02/16/20 02/16/20 Range/Units 12:10 12:10 10:53 WBC (4.8-10.8) x10^3/uL RBC (4.20-5.40) 10^6/uL Hgb (12.0-16.0) g/dL Hct (37.0-47.0) % MCV (81.0-99.0) fL MCH (27.0-31.0) pg MCHC (32.0-36.0) g/dL RDW (12.0-15.0) % Plt Count (130-450) 10^3/uL MPV (7.9-10.8) fL Neut # (Auto) (1.5-6.6) 10^3/uL Lymph # (Auto) (1.5-3.5) 10^3/uL [place] # (Auto) (0.0-1.0) 10^3/uL Eos # (Auto) (0.0-0.7) 10^3/uL Baso # (Auto) (0.0-0.1) 10^3/uL Absolute Nucleated RBC x10^3/uL Nucleated RBC % /100WBC Sodium (135-145) mmol/L Potassium (3.5-5.0) mmol/L Chloride (101-111) mmol/L Carbon Dioxide (21-32) mmol/L Anion Gap (6-13) BUN (6-20) mg/dL Creatinine (0.4-1.0) mg/dL Estimated GFR (MDRD) (>89) Glucose (70-100) mg/dL POC Whole Bld Glucose (70 - 100) mg/dL Calcium (8.5-10.3) mg/dL Total Bilirubin (0.2-1.0) mg/dL AST (10-42) IU/L ALT (10-60) IU/L Alkaline Phosphatase (42-121) IU/L Total Protein (6.7-8.2) g/dL Albumin (3.2-5.5) g/dL Globulin (2.1-4.2) g/dL Albumin/Globulin Ratio (1.0-2.2) Lipase (22-51) U/L Urine Color YELLOW Urine Clarity CLEAR (CLEAR) Urine pH 5.0 (5.0-7.5) PH Ur Specific [place] <=1.005 (1.002-1.030) Urine Protein NEGATIVE (NEGATIVE) mg/dL Urine Glucose (UA) >=1000 H (NEGATIVE) mg/dL Urine Ketones 15 H (NEGATIVE) mg/dL Urine Occult Blood NEGATIVE (NEGATIVE) Urine Nitrite POSITIVE H (NEGATIVE) Urine Bilirubin NEGATIVE (NEGATIVE) Urine Urobilinogen 0.2 (NORMAL) (NORMAL) E.U./dL Ur Leukocyte Esterase NEGATIVE (NEGATIVE) Urine RBC None Seen (0-5) /HPF Urine WBC 6-10 H (0-5) /HPF Ur Squamous Epith Cells MOD Squamous H (<= Few) Urine Bacteria Rare (None Seen) /HPF Ur Microscopic Review INDICATED Urine Culture Comments NOT INDICATED Urine Opiates Screen NEGATIVE (NEGATIVE) Ur Oxycodone Screen NEGATIVE (NEGATIVE) Urine Methadone Screen NEGATIVE (NEGATIVE) Ur Propoxyphene Screen NEGATIVE (NEGATIVE) Ur Barbiturates Screen NEGATIVE (NEGATIVE) Ur Tricyclics Screen NEGATIVE (NEGATIVE) Ur Phencyclidine Scrn NEGATIVE (NEGATIVE) Ur Amphetamine Screen NEGATIVE (NEGATIVE) U Methamphetamines Scrn NEGATIVE (NEGATIVE) U Benzodiazepines Scrn NEGATIVE (NEGATIVE) Urine Cocaine Screen NEGATIVE (NEGATIVE) U Cannabinoids Screen NEGATIVE (NEGATIVE) Serum Ketones (NEGATIVE) Blood Type O POSITIVE Blood Type Recheck Antibody Screen NEGATIVE 02/16/20 02/16/20 02/16/20 Range/Units 10:08 10:08 10:08 WBC (4.8-10.8) x10^3/uL RBC (4.20-5.40) 10^6/uL Hgb (12.0-16.0) g/dL Hct (37.0-47.0) % MCV (81.0-99.0) fL MCH (27.0-31.0) pg MCHC (32.0-36.0) g/dL RDW (12.0-15.0) % Plt Count (130-450) 10^3/uL MPV (7.9-10.8) fL Neut # (Auto) (1.5-6.6) 10^3/uL Lymph # (Auto) (1.5-3.5) 10^3/uL [place] # (Auto) (0.0-1.0) 10^3/uL Eos # (Auto) (0.0-0.7) 10^3/uL Baso # (Auto) (0.0-0.1) 10^3/uL Absolute Nucleated RBC x10^3/uL Nucleated RBC % /100WBC Sodium 134 L (135-145) mmol/L Potassium 4.7 (3.5-5.0) mmol/L Chloride 100 L (101-111) mmol/L Carbon Dioxide 21 (21-32) mmol/L Anion Gap 13.0 (6-13) BUN 45 H (6-20) mg/dL Creatinine 0.7 (0.4-1.0) mg/dL Estimated GFR (MDRD) 83 L (>89) Glucose 337 H (70-100) mg/dL POC Whole Bld Glucose (70 - 100) mg/dL Calcium 9.3 (8.5-10.3) mg/dL Total Bilirubin 1.3 H (0.2-1.0) mg/dL AST 53 H (10-42) IU/L ALT 62 H (10-60) IU/L Alkaline Phosphatase 221 H (42-121) IU/L Total Protein 7.1 (6.7-8.2) g/dL Albumin 3.7 (3.2-5.5) g/dL Globulin 3.4 (2.1-4.2) g/dL Albumin/Globulin Ratio 1.1 (1.0-2.2) Lipase 47 (22-51) U/L Urine Color Urine Clarity (CLEAR) Urine pH (5.0-7.5) PH Ur Specific [place] (1.002-1.030) Urine Protein (NEGATIVE) mg/dL Urine Glucose (UA) (NEGATIVE) mg/dL Urine Ketones (NEGATIVE) mg/dL Urine Occult Blood (NEGATIVE) Urine Nitrite (NEGATIVE) Urine Bilirubin (NEGATIVE) Urine Urobilinogen (NORMAL) E.U./dL Ur Leukocyte Esterase (NEGATIVE) Urine RBC (0-5) /HPF Urine WBC (0-5) /HPF Ur Squamous Epith Cells (<= Few) Urine Bacteria (None Seen) /HPF Ur Microscopic Review Urine Culture Comments Urine Opiates Screen (NEGATIVE) Ur Oxycodone Screen (NEGATIVE) Urine Methadone Screen (NEGATIVE) Ur Propoxyphene Screen (NEGATIVE) Ur Barbiturates Screen (NEGATIVE) Ur Tricyclics Screen (NEGATIVE) Ur Phencyclidine Scrn (NEGATIVE) Ur Amphetamine Screen (NEGATIVE) U Methamphetamines Scrn (NEGATIVE) U Benzodiazepines Scrn (NEGATIVE) Urine Cocaine Screen (NEGATIVE) U Cannabinoids Screen (NEGATIVE) Serum Ketones NEGATIVE (NEGATIVE) Blood Type Blood Type Recheck O POSITIVE Antibody Screen 02/16/20 Range/Units 10:08 WBC 11.2 H (4.8-10.8) x10^3/uL RBC 4.15 L (4.20-5.40) 10^6/uL Hgb 12.6 (12.0-16.0) g/dL Hct 39.7 (37.0-47.0) % MCV 95.7 (81.0-99.0) fL MCH 30.4 (27.0-31.0) pg MCHC 31.7 L (32.0-36.0) g/dL RDW 13.2 (12.0-15.0) % Plt Count 184 (130-450) 10^3/uL MPV 13.0 H (7.9-10.8) fL Neut # (Auto) 6.7 H (1.5-6.6) 10^3/uL Lymph # (Auto) 3.2 (1.5-3.5) 10^3/uL [place] # (Auto) 0.9 (0.0-1.0) 10^3/uL Eos # (Auto) 0.4 (0.0-0.7) 10^3/uL Baso # (Auto) 0.1 (0.0-0.1) 10^3/uL Absolute Nucleated RBC 0.00 x10^3/uL Nucleated RBC % 0.0 /100WBC Sodium (135-145) mmol/L Potassium (3.5-5.0) mmol/L Chloride (101-111) mmol/L Carbon Dioxide (21-32) mmol/L Anion Gap (6-13) BUN (6-20) mg/dL Creatinine (0.4-1.0) mg/dL Estimated GFR (MDRD) (>89) Glucose (70-100) mg/dL POC Whole Bld Glucose (70 - 100) mg/dL Calcium (8.5-10.3) mg/dL Total Bilirubin (0.2-1.0) mg/dL AST (10-42) IU/L ALT (10-60) IU/L Alkaline Phosphatase (42-121) IU/L Total Protein (6.7-8.2) g/dL Albumin (3.2-5.5) g/dL Globulin (2.1-4.2) g/dL Albumin/Globulin Ratio (1.0-2.2) Lipase (22-51) U/L Urine Color Urine Clarity (CLEAR) Urine pH (5.0-7.5) PH Ur Specific [place] (1.002-1.030) Urine Protein (NEGATIVE) mg/dL Urine Glucose (UA) (NEGATIVE) mg/dL Urine Ketones (NEGATIVE) mg/dL Urine Occult Blood (NEGATIVE) Urine Nitrite (NEGATIVE) Urine Bilirubin (NEGATIVE) Urine Urobilinogen (NORMAL) E.U./dL Ur Leukocyte Esterase (NEGATIVE) Urine RBC (0-5) /HPF Urine WBC (0-5) /HPF Ur Squamous Epith Cells (<= Few) Urine Bacteria (None Seen) /HPF Ur Microscopic Review Urine Culture Comments Urine Opiates Screen (NEGATIVE) Ur Oxycodone Screen (NEGATIVE) Urine Methadone Screen (NEGATIVE) Ur Propoxyphene Screen (NEGATIVE) Ur Barbiturates Screen (NEGATIVE) Ur Tricyclics Screen (NEGATIVE) Ur Phencyclidine Scrn (NEGATIVE) Ur Amphetamine Screen (NEGATIVE) U Methamphetamines Scrn (NEGATIVE) U Benzodiazepines Scrn (NEGATIVE) Urine Cocaine Screen (NEGATIVE) U Cannabinoids Screen (NEGATIVE) Serum Ketones (NEGATIVE) Blood Type Blood Type Recheck Antibody Screen - Diagnostic Imaging Results Diagnostic Imaging Results: positive: Read independently (ct very mild sigmoid diverticulitis otherwise unremarkable) Impression/Plan - Problem List Problem List: upper gi bleed acutely this am following several days of nsaid use. she feels well now and does not appear to be actively bleeding. She is tolerating a clear liquid diet well without nausea. She appears to have very mild diverticulitis Agree with present care and plan. If she appears to have ongoing upper gi bleed plan urgent EGD If she continues to be very stable without clinical bleeding consider outpatient EGD and colonoscopy in several weeks She states she has not had colon cancer screening/ colonoscopy for over 10 years She is and has good support at home
--- NOTE | 2020-02-16 18:29 | PHARMACY PROGRESS NOTE ---
- Best Possible Medication History Admit Date and Time: 02/16/20 1338 Processed by: Pharmacy Medication History completed: Yes Patient Interview: Completed Secondary Source(s): Physician records, Pharmacy records, Insurance records As the person ultimately responsible for medication therapy, providers are able to order a medication from an existing home medication list in [facility] via the "Reconcile Routine" prior to Confirmation of that medication by coding support specialist. Such practice is discouraged except when the physician, in their clinical judgment, deems that a medical need exists for a medication without regard to previous use.
[2020-02-16] MEDS: MORPHINE 2 MG/ML CARPUJECT IVP PRN (19:49)
[2020-02-16 20:17] LABS: HEMOGLOBIN A1c% 8.9 % (4.27-6.07)
[2020-02-16] MEDS: PANTOPRAZOLE 40 MG VIAL IVP SCH (21:31)
[2020-02-17] MEDS: MORPHINE 2 MG/ML CARPUJECT IVP PRN ×2 (00:03→04:37)
[2020-02-17] MEDS: SODIUM CHLORIDE FLUSH 0.9% 10 ML SYRINGE IVP SCH ×4 (00:05→23:35)
[2020-02-17] MEDS: SODIUM CHLORIDE 0.9% 1,000 ML IV SCH (03:14)
[2020-02-17] MEDS: CIPROFLOXACIN 400 MG/200 ML 400 MG/200 ML BAG IV SCH ×2 (04:37→17:03)
[2020-02-17 04:58] LABS: BASOPHILS % (AUTO) 0.4 %; EOSINOPHILS # (AUTO) 0.2 10^3/uL (0.0-0.7); EOSINOPHILS % (AUTO) 3.1 %; HGB - HEMOGLOBIN 8.3 g/dL (12.0-16.0); LYMPHOCYTES # (AUTO) 2.4 10^3/uL (1.5-3.5); LYMPHOCYTES % (AUTO) 43.5 %; MEAN CORPUSCULAR HEMOGLOBIN 30.7 pg (27.0-31.0); MEAN CORPUSCULAR HGB CONC 31.8 g/dL (32.0-36.0); MEAN CORPUSCULAR VOLUME 96.7 fL (81.0-99.0); MEAN PLATELET VOLUME 12.3 fL (7.9-10.8); MONOCYTES # (AUTO) 0.5 10^3/uL (0.0-1.0); MONOCYTES % (AUTO) 9.7 %; NEUTROPHILS # (AUTO) 2.4 10^3/uL (1.5-6.6); NEUTROPHILS % (AUTO) 42.9 %; PLT - PLATELET COUNT 82 10^3/uL (130-450); RED CELL DISTRIBUTION WIDTH 13.3 % (12.0-15.0); WHITE BLOOD COUNT 5.5 x10^3/uL (4.8-10.8)
[2020-02-17 05:13] LABS: ALBUMIN 2.9 g/dL (3.2-5.5); ALBUMIN/GLOBULIN RATIO 1.2 (1.0-2.2); BILIRUBIN,TOTAL 0.8 mg/dL (0.2-1.0); CREATININE 0.4 mg/dL (0.4-1.0); MAGNESIUM 1.6 mg/dL (1.7-2.8); PHOSPHORUS 2.4 mg/dL (2.5-4.6); TOTAL PROTEIN 5.3 g/dL (6.7-8.2)
[2020-02-17] MEDS: metroNIDAZOLE 500 MG/100 ML 500 MG/100 ML BAG IV SCH ×3 (05:53→22:28)
[2020-02-17] MEDS: LEVOTHYROXINE 125 MCG TABLET PO SCH (06:03)
[2020-02-17 08:23] LABS: HGB - HEMOGLOBIN 8.9 g/dL (12.0-16.0)
[2020-02-17 08:29] LABS: ABSOLUTE RETICS # AUTO 0.082 10^6/uL (0.020-0.110); RED BLOOD COUNT 2.78 10^6/uL (4.20-5.40)
[2020-02-17 08:44] LABS: % IRON SATURATION 19 % (20-50); IRON 76 ug/dL (28-170); TOTAL IRON BINDING CAPACITY 403 ug/dL (250-450); TRANSFERRIN 288 mg/dL (192-382)
[2020-02-17 08:58] LABS: FERRITIN 42.2 ng/mL (11.0-306.8)
--- NOTE | 2020-02-17 09:54 | PROVIDER PROGRESS NOTE ---
Subjective - Prog Note Date Prog Note Date: 02/17/20 - Subjective Pt reports feeling: Improved (She denies nausea and vomiting. She had one dark bm yesterday. No bm since) Objective - Vital Signs/Intake & Output Vital Signs: Vital Signs x48h Temp Pulse Resp BP Pulse Ox 02/17/20 07:55 36.9 C 98 20 112/64 98 02/17/20 04:31 36.8 C 98 18 106/63 97 Intake & Output: Intake & Output 02/14/20 02/15/20 02/16/20 02/17/20 23:59 23:59 23:59 23:59 Intake Total 2706.667 975 Output Total 1900 300 Balance 806.667 675 - Objective General Appearance: positive: No acute distress, Alert Eyes Bilateral: positive: Normal inspection, PERRL, EOMI ENT: positive: No signs of dehydration Neck: positive: No JVD Respiratory: positive: No respiratory distress Abdomen: positive: Non-tender, No distention Neurologic/Psychiatric: positive: Oriented x3 - Lab Results Fish Bones: 02/17/20 08:15 02/17/20 04:29 Other Labs: Lab Results x24hrs 02/17/20 02/17/20 02/17/20 Range/Units 08:47 08:15 08:15 WBC (4.8-10.8) x10^3/uL RBC (4.20-5.40) 10^6/uL Hgb (12.0-16.0) g/dL Hct (37.0-47.0) % MCV (81.0-99.0) fL MCH (27.0-31.0) pg MCHC (32.0-36.0) g/dL RDW (12.0-15.0) % Plt Count (130-450) 10^3/uL MPV (7.9-10.8) fL Reticulocyte % (Auto) (0.5-2.3) % Neut # (Auto) (1.5-6.6) 10^3/uL Lymph # (Auto) (1.5-3.5) 10^3/uL [place] # (Auto) (0.0-1.0) 10^3/uL Eos # (Auto) (0.0-0.7) 10^3/uL Baso # (Auto) (0.0-0.1) 10^3/uL Absolute Nucleated RBC x10^3/uL Nucleated RBC % /100WBC Absolute Retic (0.020-0.110) 10^6/uL Sodium (135-145) mmol/L Potassium (3.5-5.0) mmol/L Chloride (101-111) mmol/L Carbon Dioxide (21-32) mmol/L Anion Gap (6-13) BUN (6-20) mg/dL Creatinine (0.4-1.0) mg/dL Estimated GFR (MDRD) (>89) Glucose (70-100) mg/dL POC Whole Bld Glucose 133 H (70 - 100) mg/dL Estimat Average Glucose (70-100) mg/dL Hemoglobin A1c % (4.27-6.07) % Calcium (8.5-10.3) mg/dL Phosphorus (2.5-4.6) mg/dL Magnesium (1.7-2.8) mg/dL Iron (28-170) ug/dL TIBC (250-450) ug/dL % Saturation (20-50) % Transferrin (192-382) mg/dL Ferritin 42.2 (11.0-306.8) ng/mL Total Bilirubin (0.2-1.0) mg/dL AST (10-42) IU/L ALT (10-60) IU/L Alkaline Phosphatase (42-121) IU/L Lactate Dehydrogenase 88 L (91-225) IU/L Total Protein (6.7-8.2) g/dL Albumin (3.2-5.5) g/dL Globulin (2.1-4.2) g/dL Albumin/Globulin Ratio (1.0-2.2) Lipase (22-51) U/L Vitamin B12 471 (180-914) pg/mL TSH (0.34-5.60) uIU/mL Urine Color Urine Clarity (CLEAR) Urine pH (5.0-7.5) PH Ur Specific [place] (1.002-1.030) Urine Protein (NEGATIVE) mg/dL Urine Glucose (UA) (NEGATIVE) mg/dL Urine Ketones (NEGATIVE) mg/dL Urine Occult Blood (NEGATIVE) Urine Nitrite (NEGATIVE) Urine Bilirubin (NEGATIVE) Urine Urobilinogen (NORMAL) E.U./dL Ur Leukocyte Esterase (NEGATIVE) Urine RBC (0-5) /HPF Urine WBC (0-5) /HPF Ur Squamous Epith Cells (<= Few) Urine Bacteria (None Seen) /HPF Ur Microscopic Review Urine Culture Comments Urine Opiates Screen (NEGATIVE) Ur Oxycodone Screen (NEGATIVE) Urine Methadone Screen (NEGATIVE) Ur Propoxyphene Screen (NEGATIVE) Ur Barbiturates Screen (NEGATIVE) Ur Tricyclics Screen (NEGATIVE) Ur Phencyclidine Scrn (NEGATIVE) Ur Amphetamine Screen (NEGATIVE) U Methamphetamines Scrn (NEGATIVE) U Benzodiazepines Scrn (NEGATIVE) Urine Cocaine Screen (NEGATIVE) U Cannabinoids Screen (NEGATIVE) Serum Ketones (NEGATIVE) Blood Type Blood Type Recheck Antibody Screen 02/17/20 02/17/20 02/17/20 Range/Units 08:15 08:15 08:15 WBC (4.8-10.8) x10^3/uL RBC 2.78 L (4.20-5.40) 10^6/uL Hgb 8.9 L (12.0-16.0) g/dL Hct 26.8 L (37.0-47.0) % MCV (81.0-99.0) fL MCH (27.0-31.0) pg MCHC (32.0-36.0) g/dL RDW (12.0-15.0) % Plt Count (130-450) 10^3/uL MPV (7.9-10.8) fL Reticulocyte % (Auto) 2.93 H (0.5-2.3) % Neut # (Auto) (1.5-6.6) 10^3/uL Lymph # (Auto) (1.5-3.5) 10^3/uL [place] # (Auto) (0.0-1.0) 10^3/uL Eos # (Auto) (0.0-0.7) 10^3/uL Baso # (Auto) (0.0-0.1) 10^3/uL Absolute Nucleated RBC x10^3/uL Nucleated RBC % /100WBC Absolute Retic 0.082 (0.020-0.110) 10^6/uL Sodium (135-145) mmol/L Potassium (3.5-5.0) mmol/L Chloride (101-111) mmol/L Carbon Dioxide (21-32) mmol/L Anion Gap (6-13) BUN (6-20) mg/dL Creatinine (0.4-1.0) mg/dL Estimated GFR (MDRD) (>89) Glucose (70-100) mg/dL POC Whole Bld Glucose (70 - 100) mg/dL Estimat Average Glucose (70-100) mg/dL Hemoglobin A1c % (4.27-6.07) % Calcium (8.5-10.3) mg/dL Phosphorus (2.5-4.6) mg/dL Magnesium (1.7-2.8) mg/dL Iron 76 (28-170) ug/dL TIBC 403 (250-450) ug/dL % Saturation 19 L (20-50) % Transferrin 288 (192-382) mg/dL Ferritin (11.0-306.8) ng/mL Total Bilirubin (0.2-1.0) mg/dL AST (10-42) IU/L ALT (10-60) IU/L Alkaline Phosphatase (42-121) IU/L Lactate Dehydrogenase (91-225) IU/L Total Protein (6.7-8.2) g/dL Albumin (3.2-5.5) g/dL Globulin (2.1-4.2) g/dL Albumin/Globulin Ratio (1.0-2.2) Lipase (22-51) U/L Vitamin B12 (180-914) pg/mL TSH (0.34-5.60) uIU/mL Urine Color Urine Clarity (CLEAR) Urine pH (5.0-7.5) PH Ur Specific [place] (1.002-1.030) Urine Protein (NEGATIVE) mg/dL Urine Glucose (UA) (NEGATIVE) mg/dL Urine Ketones (NEGATIVE) mg/dL Urine Occult Blood (NEGATIVE) Urine Nitrite (NEGATIVE) Urine Bilirubin (NEGATIVE) Urine Urobilinogen (NORMAL) E.U./dL Ur Leukocyte Esterase (NEGATIVE) Urine RBC (0-5) /HPF Urine WBC (0-5) /HPF Ur Squamous Epith Cells (<= Few) Urine Bacteria (None Seen) /HPF Ur Microscopic Review Urine Culture Comments Urine Opiates Screen (NEGATIVE) Ur Oxycodone Screen (NEGATIVE) Urine Methadone Screen (NEGATIVE) Ur Propoxyphene Screen (NEGATIVE) Ur Barbiturates Screen (NEGATIVE) Ur Tricyclics Screen (NEGATIVE) Ur Phencyclidine Scrn (NEGATIVE) Ur Amphetamine Screen (NEGATIVE) U Methamphetamines Scrn (NEGATIVE) U Benzodiazepines Scrn (NEGATIVE) Urine Cocaine Screen (NEGATIVE) U Cannabinoids Screen (NEGATIVE) Serum Ketones (NEGATIVE) Blood Type Blood Type Recheck Antibody Screen 02/17/20 02/17/20 02/17/20 Range/Units 07:47 04:29 04:29 WBC (4.8-10.8) x10^3/uL RBC (4.20-5.40) 10^6/uL Hgb (12.0-16.0) g/dL Hct (37.0-47.0) % MCV (81.0-99.0) fL MCH (27.0-31.0) pg MCHC (32.0-36.0) g/dL RDW (12.0-15.0) % Plt Count (130-450) 10^3/uL MPV (7.9-10.8) fL Reticulocyte % (Auto) (0.5-2.3) % Neut # (Auto) (1.5-6.6) 10^3/uL Lymph # (Auto) (1.5-3.5) 10^3/uL [place] # (Auto) (0.0-1.0) 10^3/uL Eos # (Auto) (0.0-0.7) 10^3/uL Baso # (Auto) (0.0-0.1) 10^3/uL Absolute Nucleated RBC x10^3/uL Nucleated RBC % /100WBC Absolute Retic (0.020-0.110) 10^6/uL Sodium 138 (135-145) mmol/L Potassium 4.0 (3.5-5.0) mmol/L Chloride 110 (101-111) mmol/L Carbon Dioxide 21 (21-32) mmol/L Anion Gap 7.0 (6-13) BUN 32 H (6-20) mg/dL Creatinine 0.4 (0.4-1.0) mg/dL Estimated GFR (MDRD) 159 (>89) Glucose 133 H (70-100) mg/dL POC Whole Bld Glucose 141 H (70 - 100) mg/dL Estimat Average Glucose (70-100) mg/dL Hemoglobin A1c % (4.27-6.07) % Calcium 8.0 L (8.5-10.3) mg/dL Phosphorus 2.4 L (2.5-4.6) mg/dL Magnesium 1.6 L (1.7-2.8) mg/dL Iron (28-170) ug/dL TIBC (250-450) ug/dL % Saturation (20-50) % Transferrin (192-382) mg/dL Ferritin (11.0-306.8) ng/mL Total Bilirubin 0.8 (0.2-1.0) mg/dL AST 37 (10-42) IU/L ALT 43 (10-60) IU/L Alkaline Phosphatase 137 H (42-121) IU/L Lactate Dehydrogenase (91-225) IU/L Total Protein 5.3 L (6.7-8.2) g/dL Albumin 2.9 L (3.2-5.5) g/dL Globulin 2.4 (2.1-4.2) g/dL Albumin/Globulin Ratio 1.2 (1.0-2.2) Lipase (22-51) U/L Vitamin B12 (180-914) pg/mL TSH 0.35 (0.34-5.60) uIU/mL Urine Color Urine Clarity (CLEAR) Urine pH (5.0-7.5) PH Ur Specific [place] (1.002-1.030) Urine Protein (NEGATIVE) mg/dL Urine Glucose (UA) (NEGATIVE) mg/dL Urine Ketones (NEGATIVE) mg/dL Urine Occult Blood (NEGATIVE) Urine Nitrite (NEGATIVE) Urine Bilirubin (NEGATIVE) Urine Urobilinogen (NORMAL) E.U./dL Ur Leukocyte Esterase (NEGATIVE) Urine RBC (0-5) /HPF Urine WBC (0-5) /HPF Ur Squamous Epith Cells (<= Few) Urine Bacteria (None Seen) /HPF Ur Microscopic Review Urine Culture Comments Urine Opiates Screen (NEGATIVE) Ur Oxycodone Screen (NEGATIVE) Urine Methadone Screen (NEGATIVE) Ur Propoxyphene Screen (NEGATIVE) Ur Barbiturates Screen (NEGATIVE) Ur Tricyclics Screen (NEGATIVE) Ur Phencyclidine Scrn (NEGATIVE) Ur Amphetamine Screen (NEGATIVE) U Methamphetamines Scrn (NEGATIVE) U Benzodiazepines Scrn (NEGATIVE) Urine Cocaine Screen (NEGATIVE) U Cannabinoids Screen (NEGATIVE) Serum Ketones (NEGATIVE) Blood Type Blood Type Recheck Antibody Screen 02/17/20 02/16/20 02/16/20 Range/Units 04:29 20:57 18:04 WBC 5.5 (4.8-10.8) x10^3/uL RBC 2.70 L (4.20-5.40) 10^6/uL Hgb 8.3 L (12.0-16.0) g/dL Hct 26.1 L (37.0-47.0) % MCV 96.7 (81.0-99.0) fL MCH 30.7 (27.0-31.0) pg MCHC 31.8 L (32.0-36.0) g/dL RDW 13.3 (12.0-15.0) % Plt Count 82 L (130-450) 10^3/uL MPV 12.3 H (7.9-10.8) fL Reticulocyte % (Auto) (0.5-2.3) % Neut # (Auto) 2.4 (1.5-6.6) 10^3/uL Lymph # (Auto) 2.4 (1.5-3.5) 10^3/uL [place] # (Auto) 0.5 (0.0-1.0) 10^3/uL Eos # (Auto) 0.2 (0.0-0.7) 10^3/uL Baso # (Auto) 0.0 (0.0-0.1) 10^3/uL Absolute Nucleated RBC 0.00 x10^3/uL Nucleated RBC % 0.0 /100WBC Absolute Retic (0.020-0.110) 10^6/uL Sodium (135-145) mmol/L Potassium (3.5-5.0) mmol/L Chloride (101-111) mmol/L Carbon Dioxide (21-32) mmol/L Anion Gap (6-13) BUN (6-20) mg/dL Creatinine (0.4-1.0) mg/dL Estimated GFR (MDRD) (>89) Glucose (70-100) mg/dL POC Whole Bld Glucose 143 H 233 H (70 - 100) mg/dL Estimat Average Glucose (70-100) mg/dL Hemoglobin A1c % (4.27-6.07) % Calcium (8.5-10.3) mg/dL Phosphorus (2.5-4.6) mg/dL Magnesium (1.7-2.8) mg/dL Iron (28-170) ug/dL TIBC (250-450) ug/dL % Saturation (20-50) % Transferrin (192-382) mg/dL Ferritin (11.0-306.8) ng/mL Total Bilirubin (0.2-1.0) mg/dL AST (10-42) IU/L ALT (10-60) IU/L Alkaline Phosphatase (42-121) IU/L Lactate Dehydrogenase (91-225) IU/L Total Protein (6.7-8.2) g/dL Albumin (3.2-5.5) g/dL Globulin (2.1-4.2) g/dL Albumin/Globulin Ratio (1.0-2.2) Lipase (22-51) U/L Vitamin B12 (180-914) pg/mL TSH (0.34-5.60) uIU/mL Urine Color Urine Clarity (CLEAR) Urine pH (5.0-7.5) PH Ur Specific [place] (1.002-1.030) Urine Protein (NEGATIVE) mg/dL Urine Glucose (UA) (NEGATIVE) mg/dL Urine Ketones (NEGATIVE) mg/dL Urine Occult Blood (NEGATIVE) Urine Nitrite (NEGATIVE) Urine Bilirubin (NEGATIVE) Urine Urobilinogen (NORMAL) E.U./dL Ur Leukocyte Esterase (NEGATIVE) Urine RBC (0-5) /HPF Urine WBC (0-5) /HPF Ur Squamous Epith Cells (<= Few) Urine Bacteria (None Seen) /HPF Ur Microscopic Review Urine Culture Comments Urine Opiates Screen (NEGATIVE) Ur Oxycodone Screen (NEGATIVE) Urine Methadone Screen (NEGATIVE) Ur Propoxyphene Screen (NEGATIVE) Ur Barbiturates Screen (NEGATIVE) Ur Tricyclics Screen (NEGATIVE) Ur Phencyclidine Scrn (NEGATIVE) Ur Amphetamine Screen (NEGATIVE) U Methamphetamines Scrn (NEGATIVE) U Benzodiazepines Scrn (NEGATIVE) Urine Cocaine Screen (NEGATIVE) U Cannabinoids Screen (NEGATIVE) Serum Ketones (NEGATIVE) Blood Type Blood Type Recheck Antibody Screen 10/20/20 10/20/20 10/20/20 Range/Units 17:08 16:06 14:51 WBC (4.8-10.8) x10^3/uL RBC (4.20-5.40) 10^6/uL Hgb 9.7 L (12.0-16.0) g/dL Hct 29.5 L (37.0-47.0) % MCV (81.0-99.0) fL MCH (27.0-31.0) pg MCHC (32.0-36.0) g/dL RDW (12.0-15.0) % Plt Count (130-450) 10^3/uL MPV (7.9-10.8) fL Reticulocyte % (Auto) (0.5-2.3) % Neut # (Auto) (1.5-6.6) 10^3/uL Lymph # (Auto) (1.5-3.5) 10^3/uL [place] # (Auto) (0.0-1.0) 10^3/uL Eos # (Auto) (0.0-0.7) 10^3/uL Baso # (Auto) (0.0-0.1) 10^3/uL Absolute Nucleated RBC x10^3/uL Nucleated RBC % /100WBC Absolute Retic (0.020-0.110) 10^6/uL Sodium (135-145) mmol/L Potassium (3.5-5.0) mmol/L Chloride (101-111) mmol/L Carbon Dioxide (21-32) mmol/L Anion Gap (6-13) BUN (6-20) mg/dL Creatinine (0.4-1.0) mg/dL Estimated GFR (MDRD) (>89) Glucose (70-100) mg/dL POC Whole Bld Glucose 172 H 202 H (70 - 100) mg/dL Estimat Average Glucose (70-100) mg/dL Hemoglobin A1c % (4.27-6.07) % Calcium (8.5-10.3) mg/dL Phosphorus (2.5-4.6) mg/dL Magnesium (1.7-2.8) mg/dL Iron (28-170) ug/dL TIBC (250-450) ug/dL % Saturation (20-50) % Transferrin (192-382) mg/dL Ferritin (11.0-306.8) ng/mL Total Bilirubin (0.2-1.0) mg/dL AST (10-42) IU/L ALT (10-60) IU/L Alkaline Phosphatase (42-121) IU/L Lactate Dehydrogenase (91-225) IU/L Total Protein (6.7-8.2) g/dL Albumin (3.2-5.5) g/dL Globulin (2.1-4.2) g/dL Albumin/Globulin Ratio (1.0-2.2) Lipase (22-51) U/L Vitamin B12 (180-914) pg/mL TSH (0.34-5.60) uIU/mL Urine Color Urine Clarity (CLEAR) Urine pH (5.0-7.5) PH Ur Specific [place] (1.002-1.030) Urine Protein (NEGATIVE) mg/dL Urine Glucose (UA) (NEGATIVE) mg/dL Urine Ketones (NEGATIVE) mg/dL Urine Occult Blood (NEGATIVE) Urine Nitrite (NEGATIVE) Urine Bilirubin (NEGATIVE) Urine Urobilinogen (NORMAL) E.U./dL Ur Leukocyte Esterase (NEGATIVE) Urine RBC (0-5) /HPF Urine WBC (0-5) /HPF Ur Squamous Epith Cells (<= Few) Urine Bacteria (None Seen) /HPF Ur Microscopic Review Urine Culture Comments Urine Opiates Screen (NEGATIVE) Ur Oxycodone Screen (NEGATIVE) Urine Methadone Screen (NEGATIVE) Ur Propoxyphene Screen (NEGATIVE) Ur Barbiturates Screen (NEGATIVE) Ur Tricyclics Screen (NEGATIVE) Ur Phencyclidine Scrn (NEGATIVE) Ur Amphetamine Screen (NEGATIVE) U Methamphetamines Scrn (NEGATIVE) U Benzodiazepines Scrn (NEGATIVE) Urine Cocaine Screen (NEGATIVE) U Cannabinoids Screen (NEGATIVE) Serum Ketones (NEGATIVE) Blood Type Blood Type Recheck Antibody Screen 02/16/20 02/16/20 02/16/20 Range/Units 12:10 12:10 10:53 WBC (4.8-10.8) x10^3/uL RBC (4.20-5.40) 10^6/uL Hgb (12.0-16.0) g/dL Hct (37.0-47.0) % MCV (81.0-99.0) fL MCH (27.0-31.0) pg MCHC (32.0-36.0) g/dL RDW (12.0-15.0) % Plt Count (130-450) 10^3/uL MPV (7.9-10.8) fL Reticulocyte % (Auto) (0.5-2.3) % Neut # (Auto) (1.5-6.6) 10^3/uL Lymph # (Auto) (1.5-3.5) 10^3/uL [place] # (Auto) (0.0-1.0) 10^3/uL Eos # (Auto) (0.0-0.7) 10^3/uL Baso # (Auto) (0.0-0.1) 10^3/uL Absolute Nucleated RBC x10^3/uL Nucleated RBC % /100WBC Absolute Retic (0.020-0.110) 10^6/uL Sodium (135-145) mmol/L Potassium (3.5-5.0) mmol/L Chloride (101-111) mmol/L Carbon Dioxide (21-32) mmol/L Anion Gap (6-13) BUN (6-20) mg/dL Creatinine (0.4-1.0) mg/dL Estimated GFR (MDRD) (>89) Glucose (70-100) mg/dL POC Whole Bld Glucose (70 - 100) mg/dL Estimat Average Glucose (70-100) mg/dL Hemoglobin A1c % (4.27-6.07) % Calcium (8.5-10.3) mg/dL Phosphorus (2.5-4.6) mg/dL Magnesium (1.7-2.8) mg/dL Iron (28-170) ug/dL TIBC (250-450) ug/dL % Saturation (20-50) % Transferrin (192-382) mg/dL Ferritin (11.0-306.8) ng/mL Total Bilirubin (0.2-1.0) mg/dL AST (10-42) IU/L ALT (10-60) IU/L Alkaline Phosphatase (42-121) IU/L Lactate Dehydrogenase (91-225) IU/L Total Protein (6.7-8.2) g/dL Albumin (3.2-5.5) g/dL Globulin (2.1-4.2) g/dL Albumin/Globulin Ratio (1.0-2.2) Lipase (22-51) U/L Vitamin B12 (180-914) pg/mL TSH (0.34-5.60) uIU/mL Urine Color YELLOW Urine Clarity CLEAR (CLEAR) Urine pH 5.0 (5.0-7.5) PH Ur Specific [place] <=1.005 (1.002-1.030) Urine Protein NEGATIVE (NEGATIVE) mg/dL Urine Glucose (UA) >=1000 H (NEGATIVE) mg/dL Urine Ketones 15 H (NEGATIVE) mg/dL Urine Occult Blood NEGATIVE (NEGATIVE) Urine Nitrite POSITIVE H (NEGATIVE) Urine Bilirubin NEGATIVE (NEGATIVE) Urine Urobilinogen 0.2 (NORMAL) (NORMAL) E.U./dL Ur Leukocyte Esterase NEGATIVE (NEGATIVE) Urine RBC None Seen (0-5) /HPF Urine WBC 6-10 H (0-5) /HPF Ur Squamous Epith Cells MOD Squamous H (<= Few) Urine Bacteria Rare (None Seen) /HPF Ur Microscopic Review INDICATED Urine Culture Comments NOT INDICATED Urine Opiates Screen NEGATIVE (NEGATIVE) Ur Oxycodone Screen NEGATIVE (NEGATIVE) Urine Methadone Screen NEGATIVE (NEGATIVE) Ur Propoxyphene Screen NEGATIVE (NEGATIVE) Ur Barbiturates Screen NEGATIVE (NEGATIVE) Ur Tricyclics Screen NEGATIVE (NEGATIVE) Ur Phencyclidine Scrn NEGATIVE (NEGATIVE) Ur Amphetamine Screen NEGATIVE (NEGATIVE) U Methamphetamines Scrn NEGATIVE (NEGATIVE) U Benzodiazepines Scrn NEGATIVE (NEGATIVE) Urine Cocaine Screen NEGATIVE (NEGATIVE) U Cannabinoids Screen NEGATIVE (NEGATIVE) Serum Ketones (NEGATIVE) Blood Type O POSITIVE Blood Type Recheck Antibody Screen NEGATIVE 02/16/20 02/16/20 02/16/20 Range/Units 10:08 10:08 10:08 WBC (4.8-10.8) x10^3/uL RBC (4.20-5.40) 10^6/uL Hgb (12.0-16.0) g/dL Hct (37.0-47.0) % MCV (81.0-99.0) fL MCH (27.0-31.0) pg MCHC (32.0-36.0) g/dL RDW (12.0-15.0) % Plt Count (130-450) 10^3/uL MPV (7.9-10.8) fL Reticulocyte % (Auto) (0.5-2.3) % Neut # (Auto) (1.5-6.6) 10^3/uL Lymph # (Auto) (1.5-3.5) 10^3/uL [place] # (Auto) (0.0-1.0) 10^3/uL Eos # (Auto) (0.0-0.7) 10^3/uL Baso # (Auto) (0.0-0.1) 10^3/uL Absolute Nucleated RBC x10^3/uL Nucleated RBC % /100WBC Absolute Retic (0.020-0.110) 10^6/uL Sodium (135-145) mmol/L Potassium (3.5-5.0) mmol/L Chloride (101-111) mmol/L Carbon Dioxide (21-32) mmol/L Anion Gap (6-13) BUN (6-20) mg/dL Creatinine (0.4-1.0) mg/dL Estimated GFR (MDRD) (>89) Glucose (70-100) mg/dL POC Whole Bld Glucose (70 - 100) mg/dL Estimat Average Glucose 209 H (70-100) mg/dL Hemoglobin A1c % 8.9 H (4.27-6.07) % Calcium (8.5-10.3) mg/dL Phosphorus (2.5-4.6) mg/dL Magnesium (1.7-2.8) mg/dL Iron (28-170) ug/dL TIBC (250-450) ug/dL % Saturation (20-50) % Transferrin (192-382) mg/dL Ferritin (11.0-306.8) ng/mL Total Bilirubin (0.2-1.0) mg/dL AST (10-42) IU/L ALT (10-60) IU/L Alkaline Phosphatase (42-121) IU/L Lactate Dehydrogenase (91-225) IU/L Total Protein (6.7-8.2) g/dL Albumin (3.2-5.5) g/dL Globulin (2.1-4.2) g/dL Albumin/Globulin Ratio (1.0-2.2) Lipase (22-51) U/L Vitamin B12 (180-914) pg/mL TSH (0.34-5.60) uIU/mL Urine Color Urine Clarity (CLEAR) Urine pH (5.0-7.5) PH Ur Specific [place] (1.002-1.030) Urine Protein (NEGATIVE) mg/dL Urine Glucose (UA) (NEGATIVE) mg/dL Urine Ketones (NEGATIVE) mg/dL Urine Occult Blood (NEGATIVE) Urine Nitrite (NEGATIVE) Urine Bilirubin (NEGATIVE) Urine Urobilinogen (NORMAL) E.U./dL Ur Leukocyte Esterase (NEGATIVE) Urine RBC (0-5) /HPF Urine WBC (0-5) /HPF Ur Squamous Epith Cells (<= Few) Urine Bacteria (None Seen) /HPF Ur Microscopic Review Urine Culture Comments Urine Opiates Screen (NEGATIVE) Ur Oxycodone Screen (NEGATIVE) Urine Methadone Screen (NEGATIVE) Ur Propoxyphene Screen (NEGATIVE) Ur Barbiturates Screen (NEGATIVE) Ur Tricyclics Screen (NEGATIVE) Ur Phencyclidine Scrn (NEGATIVE) Ur Amphetamine Screen (NEGATIVE) U Methamphetamines Scrn (NEGATIVE) U Benzodiazepines Scrn (NEGATIVE) Urine Cocaine Screen (NEGATIVE) U Cannabinoids Screen (NEGATIVE) Serum Ketones NEGATIVE (NEGATIVE) Blood Type Blood Type Recheck O POSITIVE Antibody Screen 02/16/20 02/16/20 Range/Units 10:08 10:08 WBC 11.2 H (4.8-10.8) x10^3/uL RBC 4.15 L (4.20-5.40) 10^6/uL Hgb 12.6 (12.0-16.0) g/dL Hct 39.7 (37.0-47.0) % MCV 95.7 (81.0-99.0) fL MCH 30.4 (27.0-31.0) pg MCHC 31.7 L (32.0-36.0) g/dL RDW 13.2 (12.0-15.0) % Plt Count 184 (130-450) 10^3/uL MPV 13.0 H (7.9-10.8) fL Reticulocyte % (Auto) (0.5-2.3) % Neut # (Auto) 6.7 H (1.5-6.6) 10^3/uL Lymph # (Auto) 3.2 (1.5-3.5) 10^3/uL [place] # (Auto) 0.9 (0.0-1.0) 10^3/uL Eos # (Auto) 0.4 (0.0-0.7) 10^3/uL Baso # (Auto) 0.1 (0.0-0.1) 10^3/uL Absolute Nucleated RBC 0.00 x10^3/uL Nucleated RBC % 0.0 /100WBC Absolute Retic (0.020-0.110) 10^6/uL Sodium 134 L (135-145) mmol/L Potassium 4.7 (3.5-5.0) mmol/L Chloride 100 L (101-111) mmol/L Carbon Dioxide 21 (21-32) mmol/L Anion Gap 13.0 (6-13) BUN 45 H (6-20) mg/dL Creatinine 0.7 (0.4-1.0) mg/dL Estimated GFR (MDRD) 83 L (>89) Glucose 337 H (70-100) mg/dL POC Whole Bld Glucose (70 - 100) mg/dL Estimat Average Glucose (70-100) mg/dL Hemoglobin A1c % (4.27-6.07) % Calcium 9.3 (8.5-10.3) mg/dL Phosphorus (2.5-4.6) mg/dL Magnesium (1.7-2.8) mg/dL Iron (28-170) ug/dL TIBC (250-450) ug/dL % Saturation (20-50) % Transferrin (192-382) mg/dL Ferritin (11.0-306.8) ng/mL Total Bilirubin 1.3 H (0.2-1.0) mg/dL AST 53 H (10-42) IU/L ALT 62 H (10-60) IU/L Alkaline Phosphatase 221 H (42-121) IU/L Lactate Dehydrogenase (91-225) IU/L Total Protein 7.1 (6.7-8.2) g/dL Albumin 3.7 (3.2-5.5) g/dL Globulin 3.4 (2.1-4.2) g/dL Albumin/Globulin Ratio 1.1 (1.0-2.2) Lipase 47 (22-51) U/L Vitamin B12 (180-914) pg/mL TSH (0.34-5.60) uIU/mL Urine Color Urine Clarity (CLEAR) Urine pH (5.0-7.5) PH Ur Specific [place] (1.002-1.030) Urine Protein (NEGATIVE) mg/dL Urine Glucose (UA) (NEGATIVE) mg/dL Urine Ketones (NEGATIVE) mg/dL Urine Occult Blood (NEGATIVE) Urine Nitrite (NEGATIVE) Urine Bilirubin (NEGATIVE) Urine Urobilinogen (NORMAL) E.U./dL Ur Leukocyte Esterase (NEGATIVE) Urine RBC (0-5) /HPF Urine WBC (0-5) /HPF Ur Squamous Epith Cells (<= Few) Urine Bacteria (None Seen) /HPF Ur Microscopic Review Urine Culture Comments Urine Opiates Screen (NEGATIVE) Ur Oxycodone Screen (NEGATIVE) Urine Methadone Screen (NEGATIVE) Ur Propoxyphene Screen (NEGATIVE) Ur Barbiturates Screen (NEGATIVE) Ur Tricyclics Screen (NEGATIVE) Ur Phencyclidine Scrn (NEGATIVE) Ur Amphetamine Screen (NEGATIVE) U Methamphetamines Scrn (NEGATIVE) U Benzodiazepines Scrn (NEGATIVE) Urine Cocaine Screen (NEGATIVE) U Cannabinoids Screen (NEGATIVE) Serum Ketones (NEGATIVE) Blood Type Blood Type Recheck Antibody Screen Assessment/Plan - Problem List (1) Hematemesis Impression: Agree with care and plan. clinically she had an acute upper gi bleed related to nsaids. The bleeding appears to have stopped. She has very mild diverticulitis on ct scan. She has not had colon cancer screening in a very long time. If her hct remains stable she may be discharged and slowly advance her diet to a high fiber diet. Agree with a ppi, no nsaids, perhaps 3 to 7 days of oral antibiotics and follow up with surgery. If she is doing well I recommend an outpatient EGD and colonoscopy in 6 weeks Qualifiers: Nausea presence: with nausea Qualified Code(s): K92.0 - Hematemesis
[2020-02-17] MEDS: INSULIN ASPART 300 UNIT/3 ML PEN SUBQ SCH ×4 (10:04→22:27)
[2020-02-17] MEDS: MAGNESIUM OXIDE 400 MG TABLET PO SCH (10:05)
[2020-02-17] MEDS: NEUTRA-PHOS 250 MG TABLET PO SCH ×3 (10:07→17:02)
[2020-02-17] MEDS: PANTOPRAZOLE 40 MG VIAL IVP SCH ×2 (10:07→22:27)
[2020-02-17 13:22] LABS: HGB - HEMOGLOBIN 8.3 g/dL (12.0-16.0)
--- NOTE | 2020-02-17 14:37 | PROVIDER PROGRESS NOTE ---
Subjective - Prog Note Date Prog Note Date: 02/17/20 - Subjective Pt reports feeling: Improved Subjective: Patient reported she has no more vomiting of the blood, but she did have significant amount of dark and fresh blood stool in morning. Occult stool test is positive for blood. I called the surgeon Dr. Mckee, He will plan to have EGD for patient in the morning, because the patient have diverticulitis infection so colonoscopies is hold. discussed the care plan with the patient, she will follow up surgeon in 4-6 weeks for the colonoscopy as out-patient. Current Medications - Current Medications Current Medications: Active Medications Acetaminophen (Tylenol) 650 mg PO Q4HR PRN PRN Reason: Pain 1 to 4 Ciprofloxacin (Cipro 400 Mg/200 Ml) 400 mg in 200 mls @ 200 mls/hr IV Q12H [facility] Last Infusion: 02/17/20 05:38 Dose: Infused Documented by: Metronidazole (Flagyl 500 Mg/100 Ml) 500 mg in 100 mls @ 100 mls/hr IV Q8HR [facility] Last Admin: 02/17/20 14:01 Dose: 100 mls/hr Documented by: Insulin Aspart (Novolog) 1 - 9 unit SUBQ 0800,1200,1700,2100 [facility]; Protocol Last Admin: 02/17/20 11:38 Dose: 1 unit Documented by: Levothyroxine Sodium (Synthroid) 125 mcg PO QDAC [facility] Last Admin: 02/17/20 06:03 Dose: 125 mcg Documented by: Magnesium Oxide (Mag Ox) 400 mg PO DAILYWM [facility] Last Admin: 02/17/20 10:05 Dose: 400 mg Documented by: Morphine Sulfate (Morphine (Carpuject)) 2 mg IVP Q2HR PRN PRN Reason: Pain 8 to 10 Last Admin: 02/17/20 04:37 Dose: 2 mg Documented by: Ondansetron HCl (Zofran Inj) 4 mg IVP Q6HR PRN PRN Reason: Nausea / Vomiting Last Admin: 02/17/20 14:13 Dose: 4 mg Documented by: Pantoprazole Sodium (Protonix) 40 mg IVP BID [facility] Last Admin: 02/17/20 10:07 Dose: 40 mg Documented by: Sodium Chloride (Normal Saline Flush 0.9%) 10 ml IVP PRN PRN PRN Reason: NEEDED PER PROVIDER ORDERS Sodium Chloride (Normal Saline Flush 0.9%) 10 ml IVP 0100,0900,1700 [facility] Last Admin: 02/17/20 10:07 Dose: 10 ml Documented by: Sodium Phosphate (K-Phos Neutral) 250 mg PO TIDWM [facility] Last Admin: 02/17/20 11:40 Dose: 250 mg Documented by: Lidocaine Patch 5% [Lidoderm Patch] 1 - 3 patch TOP DAILY PRN 09/30/12 Sitagliptin Phos/Metformin HCl [Janumet Xr 100-1,000 mg Tablet] 2 tab PO DAILY 09/30/12 Ursodiol [Zafar Forte] 500 mg PO TID 09/30/12 Empagliflozin [Jardiance] 25 mg PO DAILY 02/16/20 Levothyroxine Sodium [Synthroid] 150 mcg PO QDAC 02/16/20 Objective - Vital Signs/Intake & Output Vital Signs: Vital Signs x48h Temp Pulse Pulse Pulse Resp BP BP 02/17/20 12:11 36.4 C L 95 18 108/62 02/17/20 12:10 114 H 92 120/74 02/17/20 07:55 36.9 C 98 20 112/64 BP Pulse Ox 02/17/20 12:11 99 02/17/20 12:10 92/58 L 02/17/20 07:55 98 Intake & Output: Intake & Output 02/14/20 02/15/20 02/16/20 02/17/20 23:59 23:59 23:59 23:59 Intake Total 2706.667 2455 Output Total 1900 1375 Balance 263.454 5783 - Objective General Appearance: positive: No acute distress, Alert. negative: Lethargic Eyes Bilateral: positive: Normal inspection, PERRL, No lid inflammation ENT: positive: ENT inspection nml, No signs of dehydration. negative: Purulent nasal drainage Neck: positive: Nml inspection, Thyroid nml, Trachea midline. negative: Thyromegaly, Stiff neck, Tracheal deviation Respiratory: positive: Chest non-tender, No respiratory distress, Breath sounds nml. negative: Wheezes, Rales, Rhonchi Cardiovascular: positive: Regular rate & rhythm, No murmur. negative: T achycardia, Bradycardia, Systolic murmur, Diastolic murmur Peripheral Pulses: 2+ Radial (R), 2+ Radial (L) Abdomen: positive: Non-tender, Nml bowel sounds, No distention. negative: Tenderness, Guarding, Rebound Back: positive: Nml inspection. negative: CVA tenderness (R), CVA tenderness (L) Skin: positive: Color nml, No rash, Warm, Dry. negative: Cyanosis, Diaphoresis, Pallor Extremities: positive: Non-tender, Full ROM, Nml appearance. negative: Calf tenderness, Ela's sign/cords Neurologic/Psychiatric: positive: Oriented x3, Motor nml, Sensation nml, Mood/affect nml. negative: Weakness, Sensory loss, Facial droop, Slurred/abnml speech, Depressed mood/affect - Lab Results Fish Bones: 02/17/20 13:17 02/17/20 04:29 Other Labs: Lab Results x24hrs 02/17/20 02/17/20 02/17/20 Range/Units 13:17 11:37 08:47 WBC (4.8-10.8) x10^3/uL RBC (4.20-5.40) 10^6/uL Hgb 8.3 L (12.0-16.0) g/dL Hct 26.0 L (37.0-47.0) % MCV (81.0-99.0) fL MCH (27.0-31.0) pg MCHC (32.0-36.0) g/dL RDW (12.0-15.0) % Plt Count (130-450) 10^3/uL MPV (7.9-10.8) fL Reticulocyte % (Auto) (0.5-2.3) % Neut # (Auto) (1.5-6.6) 10^3/uL Lymph # (Auto) (1.5-3.5) 10^3/uL [place] # (Auto) (0.0-1.0) 10^3/uL Eos # (Auto) (0.0-0.7) 10^3/uL Baso # (Auto) (0.0-0.1) 10^3/uL Absolute Nucleated RBC x10^3/uL Nucleated RBC % /100WBC Absolute Retic (0.020-0.110) 10^6/uL Sodium (135-145) mmol/L Potassium (3.5-5.0) mmol/L Chloride (101-111) mmol/L Carbon Dioxide (21-32) mmol/L Anion Gap (6-13) BUN (6-20) mg/dL Creatinine (0.4-1.0) mg/dL Estimated GFR (MDRD) (>89) Glucose (70-100) mg/dL POC Whole Bld Glucose 178 H 133 H (70 - 100) mg/dL Estimat Average Glucose (70-100) mg/dL Hemoglobin A1c % (4.27-6.07) % Calcium (8.5-10.3) mg/dL Phosphorus (2.5-4.6) mg/dL Magnesium (1.7-2.8) mg/dL Iron (28-170) ug/dL TIBC (250-450) ug/dL % Saturation (20-50) % Transferrin (192-382) mg/dL Ferritin (11.0-306.8) ng/mL Total Bilirubin (0.2-1.0) mg/dL AST (10-42) IU/L ALT (10-60) IU/L Alkaline Phosphatase (42-121) IU/L Lactate Dehydrogenase (91-225) IU/L Total Protein (6.7-8.2) g/dL Albumin (3.2-5.5) g/dL Globulin (2.1-4.2) g/dL Albumin/Globulin Ratio (1.0-2.2) Vitamin B12 (180-914) pg/mL TSH (0.34-5.60) uIU/mL 02/17/20 02/17/20 02/17/20 Range/Units 08:15 08:15 08:15 WBC (4.8-10.8) x10^3/uL RBC (4.20-5.40) 10^6/uL Hgb (12.0-16.0) g/dL Hct (37.0-47.0) % MCV (81.0-99.0) fL MCH (27.0-31.0) pg MCHC (32.0-36.0) g/dL RDW (12.0-15.0) % Plt Count (130-450) 10^3/uL MPV (7.9-10.8) fL Reticulocyte % (Auto) (0.5-2.3) % Neut # (Auto) (1.5-6.6) 10^3/uL Lymph # (Auto) (1.5-3.5) 10^3/uL [place] # (Auto) (0.0-1.0) 10^3/uL Eos # (Auto) (0.0-0.7) 10^3/uL Baso # (Auto) (0.0-0.1) 10^3/uL Absolute Nucleated RBC x10^3/uL Nucleated RBC % /100WBC Absolute Retic (0.020-0.110) 10^6/uL Sodium (135-145) mmol/L Potassium (3.5-5.0) mmol/L Chloride (101-111) mmol/L Carbon Dioxide (21-32) mmol/L Anion Gap (6-13) BUN (6-20) mg/dL Creatinine (0.4-1.0) mg/dL Estimated GFR (MDRD) (>89) Glucose (70-100) mg/dL POC Whole Bld Glucose (70 - 100) mg/dL Estimat Average Glucose (70-100) mg/dL Hemoglobin A1c % (4.27-6.07) % Calcium (8.5-10.3) mg/dL Phosphorus (2.5-4.6) mg/dL Magnesium (1.7-2.8) mg/dL Iron 76 (28-170) ug/dL TIBC 403 (250-450) ug/dL % Saturation 19 L (20-50) % Transferrin 288 (192-382) mg/dL Ferritin 42.2 (11.0-306.8) ng/mL Total Bilirubin (0.2-1.0) mg/dL AST (10-42) IU/L ALT (10-60) IU/L Alkaline Phosphatase (42-121) IU/L Lactate Dehydrogenase 88 L (91-225) IU/L Total Protein (6.7-8.2) g/dL Albumin (3.2-5.5) g/dL Globulin (2.1-4.2) g/dL Albumin/Globulin Ratio (1.0-2.2) Vitamin B12 471 (180-914) pg/mL TSH (0.34-5.60) uIU/mL 02/17/20 02/17/20 02/17/20 Range/Units 08:15 08:15 07:47 WBC (4.8-10.8) x10^3/uL RBC 2.78 L (4.20-5.40) 10^6/uL Hgb 8.9 L (12.0-16.0) g/dL Hct 26.8 L (37.0-47.0) % MCV (81.0-99.0) fL MCH (27.0-31.0) pg MCHC (32.0-36.0) g/dL RDW (12.0-15.0) % Plt Count (130-450) 10^3/uL MPV (7.9-10.8) fL Reticulocyte % (Auto) 2.93 H (0.5-2.3) % Neut # (Auto) (1.5-6.6) 10^3/uL Lymph # (Auto) (1.5-3.5) 10^3/uL [place] # (Auto) (0.0-1.0) 10^3/uL Eos # (Auto) (0.0-0.7) 10^3/uL Baso # (Auto) (0.0-0.1) 10^3/uL Absolute Nucleated RBC x10^3/uL Nucleated RBC % /100WBC Absolute Retic 0.082 (0.020-0.110) 10^6/uL Sodium (135-145) mmol/L Potassium (3.5-5.0) mmol/L Chloride (101-111) mmol/L Carbon Dioxide (21-32) mmol/L Anion Gap (6-13) BUN (6-20) mg/dL Creatinine (0.4-1.0) mg/dL Estimated GFR (MDRD) (>89) Glucose (70-100) mg/dL POC Whole Bld Glucose 141 H (70 - 100) mg/dL Estimat Average Glucose (70-100) mg/dL Hemoglobin A1c % (4.27-6.07) % Calcium (8.5-10.3) mg/dL Phosphorus (2.5-4.6) mg/dL Magnesium (1.7-2.8) mg/dL Iron (28-170) ug/dL TIBC (250-450) ug/dL % Saturation (20-50) % Transferrin (192-382) mg/dL Ferritin (11.0-306.8) ng/mL Total Bilirubin (0.2-1.0) mg/dL AST (10-42) IU/L ALT (10-60) IU/L Alkaline Phosphatase (42-121) IU/L Lactate Dehydrogenase (91-225) IU/L Total Protein (6.7-8.2) g/dL Albumin (3.2-5.5) g/dL Globulin (2.1-4.2) g/dL Albumin/Globulin Ratio (1.0-2.2) Vitamin B12 (180-914) pg/mL TSH (0.34-5.60) uIU/mL 02/17/20 02/17/20 02/17/20 Range/Units 04:29 04:29 04:29 WBC 5.5 (4.8-10.8) x10^3/uL RBC 2.70 L (4.20-5.40) 10^6/uL Hgb 8.3 L (12.0-16.0) g/dL Hct 26.1 L (37.0-47.0) % MCV 96.7 (81.0-99.0) fL MCH 30.7 (27.0-31.0) pg MCHC 31.8 L (32.0-36.0) g/dL RDW 13.3 (12.0-15.0) % Plt Count 82 L (130-450) 10^3/uL MPV 12.3 H (7.9-10.8) fL Reticulocyte % (Auto) (0.5-2.3) % Neut # (Auto) 2.4 (1.5-6.6) 10^3/uL Lymph # (Auto) 2.4 (1.5-3.5) 10^3/uL [place] # (Auto) 0.5 (0.0-1.0) 10^3/uL Eos # (Auto) 0.2 (0.0-0.7) 10^3/uL Baso # (Auto) 0.0 (0.0-0.1) 10^3/uL Absolute Nucleated RBC 0.00 x10^3/uL Nucleated RBC % 0.0 /100WBC Absolute Retic (0.020-0.110) 10^6/uL Sodium 138 (135-145) mmol/L Potassium 4.0 (3.5-5.0) mmol/L Chloride 110 (101-111) mmol/L Carbon Dioxide 21 (21-32) mmol/L Anion Gap 7.0 (6-13) BUN 32 H (6-20) mg/dL Creatinine 0.4 (0.4-1.0) mg/dL Estimated GFR (MDRD) 159 (>89) Glucose 133 H (70-100) mg/dL POC Whole Bld Glucose (70 - 100) mg/dL Estimat Average Glucose (70-100) mg/dL Hemoglobin A1c % (4.27-6.07) % Calcium 8.0 L (8.5-10.3) mg/dL Phosphorus 2.4 L (2.5-4.6) mg/dL Magnesium 1.6 L (1.7-2.8) mg/dL Iron (28-170) ug/dL TIBC (250-450) ug/dL % Saturation (20-50) % Transferrin (192-382) mg/dL Ferritin (11.0-306.8) ng/mL Total Bilirubin 0.8 (0.2-1.0) mg/dL AST 37 (10-42) IU/L ALT 43 (10-60) IU/L Alkaline Phosphatase 137 H (42-121) IU/L Lactate Dehydrogenase (91-225) IU/L Total Protein 5.3 L (6.7-8.2) g/dL Albumin 2.9 L (3.2-5.5) g/dL Globulin 2.4 (2.1-4.2) g/dL Albumin/Globulin Ratio 1.2 (1.0-2.2) Vitamin B12 (180-914) pg/mL TSH 0.35 (0.34-5.60) uIU/mL 02/16/20 02/16/20 02/16/20 Range/Units 20:57 18:04 17:08 WBC (4.8-10.8) x10^3/uL RBC (4.20-5.40) 10^6/uL Hgb (12.0-16.0) g/dL Hct (37.0-47.0) % MCV (81.0-99.0) fL MCH (27.0-31.0) pg MCHC (32.0-36.0) g/dL RDW (12.0-15.0) % Plt Count (130-450) 10^3/uL MPV (7.9-10.8) fL Reticulocyte % (Auto) (0.5-2.3) % Neut # (Auto) (1.5-6.6) 10^3/uL Lymph # (Auto) (1.5-3.5) 10^3/uL [place] # (Auto) (0.0-1.0) 10^3/uL Eos # (Auto) (0.0-0.7) 10^3/uL Baso # (Auto) (0.0-0.1) 10^3/uL Absolute Nucleated RBC x10^3/uL Nucleated RBC % /100WBC Absolute Retic (0.020-0.110) 10^6/uL Sodium (135-145) mmol/L Potassium (3.5-5.0) mmol/L Chloride (101-111) mmol/L Carbon Dioxide (21-32) mmol/L Anion Gap (6-13) BUN (6-20) mg/dL Creatinine (0.4-1.0) mg/dL Estimated GFR (MDRD) (>89) Glucose (70-100) mg/dL POC Whole Bld Glucose 143 H 233 H 172 H (70 - 100) mg/dL Estimat Average Glucose (70-100) mg/dL Hemoglobin A1c % (4.27-6.07) % Calcium (8.5-10.3) mg/dL Phosphorus (2.5-4.6) mg/dL Magnesium (1.7-2.8) mg/dL Iron (28-170) ug/dL TIBC (250-450) ug/dL % Saturation (20-50) % Transferrin (192-382) mg/dL Ferritin (11.0-306.8) ng/mL Total Bilirubin (0.2-1.0) mg/dL AST (10-42) IU/L ALT (10-60) IU/L Alkaline Phosphatase (42-121) IU/L Lactate Dehydrogenase (91-225) IU/L Total Protein (6.7-8.2) g/dL Albumin (3.2-5.5) g/dL Globulin (2.1-4.2) g/dL Albumin/Globulin Ratio (1.0-2.2) Vitamin B12 (180-914) pg/mL TSH (0.34-5.60) uIU/mL 02/16/20 02/16/20 02/16/20 Range/Units 16:06 14:51 10:08 WBC (4.8-10.8) x10^3/uL RBC (4.20-5.40) 10^6/uL Hgb 9.7 L (12.0-16.0) g/dL Hct 29.5 L (37.0-47.0) % MCV (81.0-99.0) fL MCH (27.0-31.0) pg MCHC (32.0-36.0) g/dL RDW (12.0-15.0) % Plt Count (130-450) 10^3/uL MPV (7.9-10.8) fL Reticulocyte % (Auto) (0.5-2.3) % Neut # (Auto) (1.5-6.6) 10^3/uL Lymph # (Auto) (1.5-3.5) 10^3/uL [place] # (Auto) (0.0-1.0) 10^3/uL Eos # (Auto) (0.0-0.7) 10^3/uL Baso # (Auto) (0.0-0.1) 10^3/uL Absolute Nucleated RBC x10^3/uL Nucleated RBC % /100WBC Absolute Retic (0.020-0.110) 10^6/uL Sodium (135-145) mmol/L Potassium (3.5-5.0) mmol/L Chloride (101-111) mmol/L Carbon Dioxide (21-32) mmol/L Anion Gap (6-13) BUN (6-20) mg/dL Creatinine (0.4-1.0) mg/dL Estimated GFR (MDRD) (>89) Glucose (70-100) mg/dL POC Whole Bld Glucose 202 H (70 - 100) mg/dL Estimat Average Glucose 209 H (70-100) mg/dL Hemoglobin A1c % 8.9 H (4.27-6.07) % Calcium (8.5-10.3) mg/dL Phosphorus (2.5-4.6) mg/dL Magnesium (1.7-2.8) mg/dL Iron (28-170) ug/dL TIBC (250-450) ug/dL % Saturation (20-50) % Transferrin (192-382) mg/dL Ferritin (11.0-306.8) ng/mL Total Bilirubin (0.2-1.0) mg/dL AST (10-42) IU/L ALT (10-60) IU/L Alkaline Phosphatase (42-121) IU/L Lactate Dehydrogenase (91-225) IU/L Total Protein (6.7-8.2) g/dL Albumin (3.2-5.5) g/dL Globulin (2.1-4.2) g/dL Albumin/Globulin Ratio (1.0-2.2) Vitamin B12 (180-914) pg/mL TSH (0.34-5.60) uIU/mL ABX Reporting Has patient been on IV antibiotics over the past 48 hours?: Yes Sepsis Event Note (H) - Evaluation Current Stage of Sepsis: Ruled out Assessment/Plan - Problem List (1) Hematemesis Impression: 1021,Patient has no more hematemesis. Unfortunately Patient had dark stool with fresh blood, GI surgeon plan to have EGD on tomorrow, continue Protonix intravenous, continue h&h, npo after midnight Patient reported she had three times of vomiting of blood after She take lots of ibuprofen. She reported she take 800 mg ibuprofen every 6 hours for 3 days. GHGB is 12.6 now. We will hold NSAIDs, Started with Protonix intravenous twice daily, Continue H&H to monitor hemoglobin, Consult with surgeon. (2) Dark stools Conclusion/Plan: 1021,Patient continued to have dark stool with fresh blood, hemoglobin from 8.9 to trended down to 8.3. Surgeon plan to have EGD on patient on tomorrow morning. Keep n.p.o. after midnight, continue intravenous Protonix Patient reported she had a dark stool in the home, likely from upper GI bleed. Patient had a BUN 45. We will give patient IV Protonix, H&H monitor hemoglobin.Consult with GI surgeon (3) Tachycardia Conclusion/Plan: 1021, resolved Patient had a tachycardia below 110. EKG showed sinus tachycardia. Likely from patient GI bleed, decreased hemoglobin. Patient denying chest pain, shortness of breathing. 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 We will do echo for patient since patient did not show she lost conscious when she had a fall in the home. (4) Fall Conclusion/Plan: 102, consult with PT and OT, follow-up their recommendation. Patient reported she had a fall in the home, all imaging studies including CAT scan of the head, ankle and knee x-ray show unremarkable.Patient was not sure if she lost consciousness when she had a fall in the home. Patient denying seizure at home. EKG shows sinus tachycardia, rhythm below 110. We will order echo to monitor patient. order physical therapist and occupational therapist evaluation and treatment for patient in the prevention of fall. (5) Diverticulitis Conclusion/Plan: 102, patient feel little better but still complain of some discomfort at low GI, We will continue antibiotics Cipro, Flagyl Patient reported lower GI with uncomfortable and pain, patient had slightly elevated WBC, CAT scan of the abdomen show descending colon diverticulitis. We will start with patient Cipro and Flagyl, Liquid diet. (6) Chronic hepatitis Conclusion/Plan: 1021, resolved Patient had slightly elevated total bili, AST, ALT, alkaline phosphate. Patient reported she had a chronic hepatitis, she reported this was from her food poison in the before. We will continue CMP monitor. (7) Diabetes Conclusion/Plan: 102, patient's A1c is 8.9, Continue sliding scale in hospital. Patient did not take insulin at home,Patient had an elevated glucose level at 337. We will give the patient 8 units of Novolog, Started with slide scale, glucose check, hypoglycemia protocol (8) Hypothyroidism Conclusion/Plan: 102, TSH normal, continue home synthyroid We will check TSH, resume home Synthroid after Pharmacy confirm Qualifiers: Nausea presence: with nausea Qualified Code(s): K92.0 - Hematemesis
[2020-02-17 20:18] LABS: HGB - HEMOGLOBIN 8.7 g/dL (12.0-16.0)
[2020-02-18] MEDS: CIPROFLOXACIN 400 MG/200 ML 400 MG/200 ML BAG IV SCH (04:28)
[2020-02-18 05:22] LABS: BASOPHILS % (AUTO) 0.7 %; EOSINOPHILS # (AUTO) 0.2 10^3/uL (0.0-0.7); EOSINOPHILS % (AUTO) 3.8 %; HGB - HEMOGLOBIN 8.9 g/dL (12.0-16.0); LYMPHOCYTES # (AUTO) 1.8 10^3/uL (1.5-3.5); LYMPHOCYTES % (AUTO) 40.9 %; MEAN CORPUSCULAR HEMOGLOBIN 31.1 pg (27.0-31.0); MEAN CORPUSCULAR HGB CONC 32.4 g/dL (32.0-36.0); MEAN CORPUSCULAR VOLUME 96.2 fL (81.0-99.0); MEAN PLATELET VOLUME 12.2 fL (7.9-10.8); MONOCYTES # (AUTO) 0.4 10^3/uL (0.0-1.0); MONOCYTES % (AUTO) 8.5 %; NEUTROPHILS % (AUTO) 45.9 %; PLT - PLATELET COUNT 85 10^3/uL (130-450); RED BLOOD COUNT 2.86 10^6/uL (4.20-5.40); RED CELL DISTRIBUTION WIDTH 13.2 % (12.0-15.0); WHITE BLOOD COUNT 4.5 x10^3/uL (4.8-10.8)
[2020-02-18 05:34] LABS: ALBUMIN 3.2 g/dL (3.2-5.5); ALBUMIN/GLOBULIN RATIO 1.2 (1.0-2.2); BILIRUBIN,TOTAL 0.8 mg/dL (0.2-1.0); CALCIUM 8.2 mg/dL (8.5-10.3); CREATININE 0.4 mg/dL (0.4-1.0); MAGNESIUM 1.6 mg/dL (1.7-2.8); PHOSPHORUS 2.6 mg/dL (2.5-4.6); TOTAL PROTEIN 5.9 g/dL (6.7-8.2)
[2020-02-18] MEDS: metroNIDAZOLE 500 MG/100 ML 500 MG/100 ML BAG IV SCH (06:08)
[2020-02-18] MEDS: LEVOTHYROXINE 125 MCG TABLET PO SCH (06:10)
[2020-02-18] MEDS ORDERED: MAGNESIUM SULFATE 2 GRAM 2 GM/50 ML BAG IV ONE (07:30)
[2020-02-18] MEDS: INSULIN ASPART 300 UNIT/3 ML PEN SUBQ SCH ×2 (08:51→12:10)
[2020-02-18] MEDS: MAGNESIUM OXIDE 400 MG TABLET PO SCH (08:51)
[2020-02-18] MEDS: NEUTRA-PHOS 250 MG TABLET PO SCH ×2 (08:51→12:30)
[2020-02-18] MEDS: PANTOPRAZOLE 40 MG VIAL IVP SCH (08:51)
[2020-02-18] MEDS: SODIUM CHLORIDE FLUSH 0.9% 10 ML SYRINGE IVP SCH (08:52)
--- NOTE | 2020-02-18 11:23 | PROVIDER PROGRESS NOTE ---
Subjective - Prog Note Date Prog Note Date: 02/18/20 - Subjective Pt reports feeling: Improved (bm with some blood yesterday. feels well. no abdominal pain or nausea) Objective - Vital Signs/Intake & Output Vital Signs: Vital Signs x48h Temp Pulse Resp BP Pulse Ox 02/18/20 08:39 36.8 C 84 18 107/52 L 98 02/18/20 04:21 36.6 C 86 18 106/59 L 98 Intake & Output: Intake & Output 02/15/20 02/16/20 02/17/20 02/18/20 23:59 23:59 23:59 23:59 Intake Total 2706.667 3055 350.000 Output Total 1900 1975 Balance 818.645 6896 350.000 - Objective General Appearance: positive: No acute distress, Alert Eyes Bilateral: positive: PERRL, EOMI Neck: positive: No JVD Respiratory: positive: No respiratory distress Abdomen: positive: Non-tender, No distention Neurologic/Psychiatric: positive: Oriented x3 - Lab Results Fish Bones: 02/18/20 04:45 02/18/20 04:45 Other Labs: Lab Results x24hrs 02/18/20 02/18/20 02/18/20 Range/Units 08:02 04:45 04:45 WBC 4.5 L (4.8-10.8) x10^3/uL RBC 2.86 L (4.20-5.40) 10^6/uL Hgb 8.9 L (12.0-16.0) g/dL Hct 27.5 L (37.0-47.0) % MCV 96.2 (81.0-99.0) fL MCH 31.1 H (27.0-31.0) pg MCHC 32.4 (32.0-36.0) g/dL RDW 13.2 (12.0-15.0) % Plt Count 85 L (130-450) 10^3/uL MPV 12.2 H (7.9-10.8) fL Neut # (Auto) 2.0 (1.5-6.6) 10^3/uL Lymph # (Auto) 1.8 (1.5-3.5) 10^3/uL [place] # (Auto) 0.4 (0.0-1.0) 10^3/uL Eos # (Auto) 0.2 (0.0-0.7) 10^3/uL Baso # (Auto) 0.0 (0.0-0.1) 10^3/uL Absolute Nucleated RBC 0.00 x10^3/uL Nucleated RBC % 0.0 /100WBC Sodium 137 (135-145) mmol/L Potassium 3.7 (3.5-5.0) mmol/L Chloride 107 (101-111) mmol/L Carbon Dioxide 21 (21-32) mmol/L Anion Gap 9.0 (6-13) BUN 13 (6-20) mg/dL Creatinine 0.4 (0.4-1.0) mg/dL Estimated GFR (MDRD) 159 (>89) Glucose 149 H (70-100) mg/dL POC Whole Bld Glucose 132 H (70 - 100) mg/dL Calcium 8.2 L (8.5-10.3) mg/dL Phosphorus 2.6 (2.5-4.6) mg/dL Magnesium 1.6 L (1.7-2.8) mg/dL Total Bilirubin 0.8 (0.2-1.0) mg/dL AST 91 H (10-42) IU/L ALT 69 H (10-60) IU/L Alkaline Phosphatase 153 H (42-121) IU/L Total Protein 5.9 L (6.7-8.2) g/dL Albumin 3.2 (3.2-5.5) g/dL Globulin 2.7 (2.1-4.2) g/dL Albumin/Globulin Ratio 1.2 (1.0-2.2) 02/17/20 02/17/20 02/17/20 Range/Units 20:29 20:03 16:36 WBC (4.8-10.8) x10^3/uL RBC (4.20-5.40) 10^6/uL Hgb 8.7 L (12.0-16.0) g/dL Hct 26.8 L (37.0-47.0) % MCV (81.0-99.0) fL MCH (27.0-31.0) pg MCHC (32.0-36.0) g/dL RDW (12.0-15.0) % Plt Count (130-450) 10^3/uL MPV (7.9-10.8) fL Neut # (Auto) (1.5-6.6) 10^3/uL Lymph # (Auto) (1.5-3.5) 10^3/uL [place] # (Auto) (0.0-1.0) 10^3/uL Eos # (Auto) (0.0-0.7) 10^3/uL Baso # (Auto) (0.0-0.1) 10^3/uL Absolute Nucleated RBC x10^3/uL Nucleated RBC % /100WBC Sodium (135-145) mmol/L Potassium (3.5-5.0) mmol/L Chloride (101-111) mmol/L Carbon Dioxide (21-32) mmol/L Anion Gap (6-13) BUN (6-20) mg/dL Creatinine (0.4-1.0) mg/dL Estimated GFR (MDRD) (>89) Glucose (70-100) mg/dL POC Whole Bld Glucose 188 H 114 H (70 - 100) mg/dL Calcium (8.5-10.3) mg/dL Phosphorus (2.5-4.6) mg/dL Magnesium (1.7-2.8) mg/dL Total Bilirubin (0.2-1.0) mg/dL AST (10-42) IU/L ALT (10-60) IU/L Alkaline Phosphatase (42-121) IU/L Total Protein (6.7-8.2) g/dL Albumin (3.2-5.5) g/dL Globulin (2.1-4.2) g/dL Albumin/Globulin Ratio (1.0-2.2) 02/17/20 02/17/20 Range/Units 13:17 11:37 WBC (4.8-10.8) x10^3/uL RBC (4.20-5.40) 10^6/uL Hgb 8.3 L (12.0-16.0) g/dL Hct 26.0 L (37.0-47.0) % MCV (81.0-99.0) fL MCH (27.0-31.0) pg MCHC (32.0-36.0) g/dL RDW (12.0-15.0) % Plt Count (130-450) 10^3/uL MPV (7.9-10.8) fL Neut # (Auto) (1.5-6.6) 10^3/uL Lymph # (Auto) (1.5-3.5) 10^3/uL [place] # (Auto) (0.0-1.0) 10^3/uL Eos # (Auto) (0.0-0.7) 10^3/uL Baso # (Auto) (0.0-0.1) 10^3/uL Absolute Nucleated RBC x10^3/uL Nucleated RBC % /100WBC Sodium (135-145) mmol/L Potassium (3.5-5.0) mmol/L Chloride (101-111) mmol/L Carbon Dioxide (21-32) mmol/L Anion Gap (6-13) BUN (6-20) mg/dL Creatinine (0.4-1.0) mg/dL Estimated GFR (MDRD) (>89) Glucose (70-100) mg/dL POC Whole Bld Glucose 178 H (70 - 100) mg/dL Calcium (8.5-10.3) mg/dL Phosphorus (2.5-4.6) mg/dL Magnesium (1.7-2.8) mg/dL Total Bilirubin (0.2-1.0) mg/dL AST (10-42) IU/L ALT (10-60) IU/L Alkaline Phosphatase (42-121) IU/L Total Protein (6.7-8.2) g/dL Albumin (3.2-5.5) g/dL Globulin (2.1-4.2) g/dL Albumin/Globulin Ratio (1.0-2.2) Sepsis Event Note (H) - Evaluation Current Stage of Sepsis: Ruled out Assessment/Plan - Problem List (1) Hematemesis Impression: She feels well and is tolerating a soft/ regular diet well. Her hct/ hgb has been very stable. She has no signs or symptoms from her anemia. I spoke with her and her . Plan follow up with surgery and EGD and colonoscopy in 6 weeks. I believe with current medical management risk of additional bleeding is low Qualifiers: Nausea presence: with nausea Qualified Code(s): K92.0 - Hematemesis
[2020-02-18 11:55] VITALS: BP 111/60
[2020-02-18 12:45] LABS: HGB - HEMOGLOBIN 9.3 g/dL (12.0-16.0)
--- NOTE | 2020-02-18 12:57 | Discharge Plan ---
Discharge Plan Problem Reviewed?: Yes Disposition: Home, Self Care Condition: Stable Prescriptions: Ciprofloxacin HCl [Cipro] 500 mg PO BID #10 tablet metroNIDAZOLE [Flagyl] 250 mg PO Q8H #15 tablet Omeprazole 40 mg PO BID #60 capsule. Diet: Soft Activity Restrictions: Activity as Tolerated Shower Restrictions: No (fall precaution) Instruction Topics: Diverticulitis Dc, ED Diverticulitis, Bleeding Gastrointestinal, Ciprofloxacin tablets, Metronidazole tablets or capsules, Omeprazole tablets OTC Health Concerns: GI bleeding, and diverticulitis Plan of Treatment: Your HGB consistently increase, you does not have any vomiting blood. Surgeon release you as well. You are prescribed PPI for your possible gastric ulcer healing, advise you hold NSAIDs such as Aspirin and Ibuprofen now, continue the new prescribed PPI medication, and followup with Dr. Mckee in 6 weeks to have endoscopy. Antibiotics PO Cipro and Flagyl are prescribed for your diverticulitis. Care Goals: stabilization and improvement of your medical conditions Assessment: discussed the care plan with you, you understood and agreed. Additional Instructions or Follow Up instructions: You may Follow-up with your PCP in 1 to 2 weeks, follow-up with Dr. Mckee in 6 weeks for outpatient endoscopy. Shoulder your symptoms return or worsen, you may return to the ER or call 911 for help No Smoking: If you smoke, Please STOP! Call for help. Follow-up with: Lindsey Baez PA-C [Primary Care Provider] -
--- NOTE | 2020-02-18 13:12 | DISCHARGE SUMMARY ---
Discharge Summary Admit Date: 02/16/20 Discharge Date: 02/18/20 Discharging Provider: Jake Guidry Primary Care Provider: Perla Portillo Condition at Discharge: Stable Discharge Disposition: 01 Home, Self Care Discharge Facility Name: home - DIAGNOSES Discharge Diagnoses with Status of Each Condition: (1) Hematemesis Resolved. Patient has no any vomiting of blood in the hospital. Patient's hemoglobin is stable and continue increased. Patient has no EGD or colonoscopy done in the hospital. General surgeon discharged the patient. Patient was prescribed PPI and to follow-up with surgeon in 6 weeks. advise you hold NSAIDs such as Aspirin and Ibuprofen. (2) Dark stools Patient still had dark stool But hemoglobin is stable and continue increased. It is likely caused by remain blood in the stomach. Patient's BUN become normal 13 from 45 in the admission. Patient has no EGD or colonoscopy done in the hospital. General surgeon discharged the patient. Patient was prescribed PPI and to follow-up with surgeon in 6 weeks. pt was instructed if she continue to have dark stool in the following couple days with dizziness and lightheaded, then she is advised to return to ER for further evaluation. advised pt followup with her PCP in one week to recheck HGB level. CT of abdomen reveals acute diverticul itis. advise you hold NSAIDs such as Aspirin and Ibuprofen. (3) Tachycardia resolved (4) Fall Tele strip reveals sinus rhythm, EKG in the admission revealed ST. ECHO reveals unremarkable. Patient was evaluated and treated by physical therapist and oc cupational therapist, Patient was prescribed a walker, no home health PT/OT needed by PT/OT's recommendation. (5) Diverticulitis Improved. CT of abdomen reveals acute diverticulitis. after treated with antibiotics, Patient has no more abdominal pain, patient tolerated regular diet. Surgeon discharge patient as well. Patient is prescribed antibiotics Cipro and Flagyl for discharge to home (6) Chronic hepatitis Stable (7) Diabetes Stable and chronic. A1c is 8.9, patient like to continue her home medication. (8) Hypothyroidism stable, TSH normal, continue home synthyroid - HPI History of Present Illness: This is a 78-old female with a past medical history significant for diabetes 2, hypothyroidism, chronic hepatitis from previous food poisoning, Osteoarthritis, who present ER Complaint of fall in home, vomiting blood and dark stool. Patient reported she had a fall in the home, hit of her head and right ankle. CT of the head and x-ray of the ankle was unremarkable. Patient reported she might also loss of conscious but she did not ensure When she had a fall in the home. Because of pain in the head and right ankle from the fall, then she took i buprofen for 3 days. She took 800 mg ibuprofen every 6 hours for 3 days.Then today she had 3 times vomiting with blood. She also reported she had dark stool with diarrhea on today but no diarrhea right now. She also reported some abdominal discomfort and pain in her low abdominal area. She denies chest pain, fever, short of shortness of breathing. X-ray of ankle, knee, T of the brain, chest x-ray are all unremarkable. CAT scan of the abdomen show distal descending colon compatible with acute diverticulitis, No evidence for perforation or abscess formation. A segment of circumferential minimal bowel wall thickening with fluids air distention of segment of proximal small bowel which may be rel ated to enteritis of infection or inflammation. Patient was admitted for evaluation and treatment of GI bleed, and fall. Discussed the care goal with the patient, patient state she want full code. - HOSPITAL COURSE Hospital Course: Patient was admitted for vomiting blood and dark stool for GI bleed. It is likely caused by patient significant amount of ibuprofen consumed in the home. CT of the abdomen revealed diverticulitis. Patient was consulted by GI surgeon in the hospital. Patient was continually treated with antibiotics Cipro and Flagyl and the intravenous PPI Protonix in the hospital. Patient has no any vomiting of blood in the hospital. Patient's hemoglobin stable and continues increased. Patient has no EGD or colonoscopy done in hospital per GI surgeon. But the patient still had dark stool, which is likely caused by the remain blood in the stomach. Patient's BUN become normal 13 from 45 in the admission. Patient was prescribed PPI, antibiotics Cipro and a fracture for discharge, patient was advised to follow-up with GI surgeon in 6 weeks. Patient is advised to follow-up with her PCP to have hemoglobin check in 1 week. pt also was advised if pt continue to have black stool, fresh blood stool, or vomiting blood again, advise pt come back to hospital or call 911 for help. - ALLERGIES Allergies/Adverse Reactions: Allergies Allergy/AdvReac Type Severity Reaction Status Date / Time No Known Drug Allergies Allergy Verified 02/16/20 09:50 - MEDICATIONS Home Medications: Ambulatory Orders Medication Instructions Recorded Confirmed Lidocaine Patch 5% [Lidoderm Patch] 1 - 3 patch TOP DAILY PRN 09/30/12 02/16/20 Sitagliptin Phos/Metformin HCl 2 tab PO DAILY 09/30/12 02/16/20 [Janumet Xr 100-1,000 mg Tablet] Ursodiol [Zafar Forte] 500 mg PO TID 09/30/12 02/16/20 Empagliflozin [Jardiance] 25 mg PO DAILY 02/16/20 02/16/20 Levothyroxine Sodium [Synthroid] 150 mcg PO QDAC 02/16/20 02/16/20 Ciprofloxacin HCl [Cipro] 500 mg PO BID #10 tablet 02/18/20 Omeprazole 40 mg PO BID #60 capsule. 02/18/20 metroNIDAZOLE [Flagyl] 250 mg PO Q8H #15 tablet 02/18/20 - PHYSICAL EXAM AT DISCHARGE General Appearance: positive: No acute distress, Alert. negative: Lethargic Eyes Bilateral: positive: Normal inspection, PERRL, No lid inflammation ENT: positive: ENT inspection nml, No signs of dehydration. negative: Purulent nasal drainage Neck: positive: Nml inspection, Thyroid nml, Trachea midline. negative: Thyromegaly, Tracheal deviation Respiratory: positive: Chest non-tender, No respiratory distress, Breath sounds nml. negative: Wheezes, Rales, Rhonchi Cardiovascular: positive: Regular rate & rhythm, No murmur. negative: Tachycardia, Bradycardia, Systolic murmur, Diastolic murmur Peripheral Pulses: positive: 2+ Abdomen: positive: Non-tender, Nml bowel sounds, No distention. negative: Ten derness, Guarding, Rebound Back: positive: Nml inspection. negative: CVA tenderness (R), CVA tenderness (L) Skin: positive: Color nml, No rash, Warm, Dry. negative: Cyanosis, Diaphoresis, Pallor Extremities: positive: Non-tender, Full ROM, Nml appearance. negative: Pedal edema, Calf tenderness Neurologic/Psychiatric: positive: Oriented x3, Motor nml, Sensation nml, Mood/affect nml. negative: Weakness, Sensory loss, Facial droop, Slurred/abnml speech, Depressed mood/affect - LABS Result Diagrams: 02/18/20 12:43 02/18/20 04:45 - SEPSIS Current Stage of Sepsis: Ruled out - FOLLOW UP Follow Up: Your HGB consistently increase, you does not have any vomiting blood. Surgeon release you as well. You are prescribed PPI for your possible gastric ulcer healing, advise you hold NSAIDs such as Aspirin and Ibuprofen now, continue the new prescribed PPI medication, and followup with Dr. Mckee in 6 weeks to have endoscopy. Antibiotics PO Cipro and Flagyl are prescribed for your diverticulitis. advise pt see her PCP in one week to have blood work to check HGB again. You may Follow-up with your PCP in 1 to 2 weeks, follow-up with Dr. Mckee in 6 weeks for outpatient endoscopy. Should your symptoms return or worsen, you may return to the ER or call 911 for help - TIME SPENT Time Spent in Discharge (Minutes): 30
== END 2020-02-18 14:25 | disposition home or self-care (01) | DRG 379 ==
LOC: ED 09:36 → MS3 13:33
PROVIDERS: ADMIT Nurse Practitioner Gerontology; ATTEND Nurse Practitioner Gerontology
DX: K92.0 Hematemesis (principal); K25.4 Chronic or unspecified gastric ulcer with hemorrhage; T39.315A Adverse effect of propionic acid derivatives, initial encounter; K57.33 Diverticulitis of large intestine without perforation or abscess with bleeding; Y92.009 Unspecified place in unspecified non-institutional (private) residence as the place of occurrence of the external cause; W01.0XXA Fall on same level from slipping, tripping and stumbling without subsequent striking against object, initial encounter; E11.65 Type 2 diabetes mellitus with hyperglycemia; K73.8 Other chronic hepatitis, not elsewhere classified; S01.01XA Laceration without foreign body of scalp, initial encounter; S93.401A Sprain of unspecified ligament of right ankle, initial encounter; E03.9 Hypothyroidism, unspecified; R00.0 Tachycardia, unspecified; M19.90 Unspecified osteoarthritis, unspecified site; Z79.84 Long term (current) use of oral hypoglycemic drugs; Z79.899 Other long term (current) drug therapy; Z87.891 Personal history of nicotine dependence
CPT/HCPCS: 12001; 36415; 70450; 71045; 73562; 73610; 74177; 80053; 81001; 82009; 82270; 82607; 82728; 83036; 83540; 83615; 83690; 83735; 84100; 84443; 84466; 85014; 85018; 85025; 85045; 86850; 86900; 86901; 93005; 93306; 96361; 96374; 96375; 97161; 97530; 99284; 99285; A9270; Q9967; 80306; 81003; 87086

== ENCOUNTER 2020-02-23 08:00 | Outpatient (CLI) | payer MEDICARE, OTHER ==
[2020-02-23 18:32] LABS: BASOPHILS % (AUTO) 0.6 %; EOSINOPHILS # (AUTO) 0.1 10^3/uL (0.0-0.7); HGB - HEMOGLOBIN 9.7 g/dL (12.0-16.0); LYMPHOCYTES # (AUTO) 1.4 10^3/uL (1.5-3.5); MEAN CORPUSCULAR HEMOGLOBIN 31.1 pg (27.0-31.0); MEAN CORPUSCULAR HGB CONC 31.7 g/dL (32.0-36.0); MEAN CORPUSCULAR VOLUME 98.1 fL (81.0-99.0); MEAN PLATELET VOLUME 12.6 fL (7.9-10.8); MONOCYTES # (AUTO) 0.4 10^3/uL (0.0-1.0); MONOCYTES % (AUTO) 9.3 %; NEUTROPHILS # (AUTO) 2.6 10^3/uL (1.5-6.6); NEUTROPHILS % (AUTO) 56.7 %; PLT - PLATELET COUNT 147 10^3/uL (130-450); RED BLOOD COUNT 3.12 10^6/uL (4.20-5.40); WHITE BLOOD COUNT 4.6 x10^3/uL (4.8-10.8)
[2020-02-23 18:34] LABS: HEMOGLOBIN A1c% 8.3 % (4.27-6.07)
[2020-02-23 19:00] LABS: % IRON SATURATION 8 % (20-50); ALBUMIN 3.8 g/dL (3.2-5.5); ALBUMIN/GLOBULIN RATIO 1.2 (1.0-2.2); ALKALINE PHOSPHATASE 185 IU/L (42-121); ALT ALANINE AMINOTRANSFERASE 42 IU/L (10-60); AST ASPARTATE AMINOTRANSFERASE 35 IU/L (10-42); BILIRUBIN,TOTAL 0.8 mg/dL (0.2-1.0); BUN - BLOOD UREA NITROGEN 11 mg/dL (6-20); CALCIUM 8.9 mg/dL (8.5-10.3); CARBON DIOXIDE - CO2 22 mmol/L (21-32); CHLORIDE 102 mmol/L (101-111); CHOL/HDL RATIO 3.3 (<4.4); CHOLESTEROL 214 mg/dL; CREATININE 0.5 mg/dL (0.4-1.0); GLUCOSE 145 mg/dL (70-100); HDL CHOLESTEROL 64 mg/dL; IRON 37 ug/dL (28-170); LDL CHOLESTEROL,CALCULATED 107 mg/dL; LDL/HDL RATIO 1.7 (<4.4); SODIUM 135 mmol/L (135-145); TOTAL IRON BINDING CAPACITY 468 ug/dL (250-450); TOTAL PROTEIN 7.1 g/dL (6.7-8.2); TRANSFERRIN 334 mg/dL (192-382); VLDL CHOLESTEROL 43 mg/dL
== END 2020-02-23 23:59 | disposition home or self-care (01) ==
LOC: LAB.WCP 08:00
PROVIDERS: ATTEND Physician Assistant Medical
DX: E11.9 Type 2 diabetes mellitus without complications (principal); K92.2 Gastrointestinal hemorrhage, unspecified
CPT/HCPCS: 36415; 80053; 80061; 82728; 83036; 83540; 83721; 84466; 85025

== ENCOUNTER 2020-03-17 11:30 | Outpatient (CLI) | payer MEDICARE, OTHER ==
[2020-03-22 22:41] LABS: SOURCE VAGINAL
== END 2020-03-17 11:31 | disposition home or self-care (01) ==
LOC: LAB.R 11:30
PROVIDERS: ATTEND Physician Assistant Medical
DX: N76.0 Acute vaginitis (principal)
CPT/HCPCS: 87070; 87205; 87529

== ENCOUNTER 2020-04-07 08:00 | Outpatient (CLI) | payer MEDICARE, OTHER ==
[2020-04-07 17:57] LABS: EOSINOPHILS # (AUTO) 0.2 10^3/uL (0.0-0.7); EOSINOPHILS % (AUTO) 3.9 %; HGB - HEMOGLOBIN 9.9 g/dL (12.0-16.0); LYMPHOCYTES # (AUTO) 1.5 10^3/uL (1.5-3.5); LYMPHOCYTES % (AUTO) 39.1 %; MEAN CORPUSCULAR HEMOGLOBIN 25.5 pg (27.0-31.0); MEAN CORPUSCULAR HGB CONC 29.7 g/dL (32.0-36.0); MEAN CORPUSCULAR VOLUME 85.8 fL (81.0-99.0); MONOCYTES # (AUTO) 0.4 10^3/uL (0.0-1.0); MONOCYTES % (AUTO) 10.7 %; NEUTROPHILS # (AUTO) 1.7 10^3/uL (1.5-6.6); PLT - PLATELET COUNT 114 10^3/uL (130-450); RED BLOOD COUNT 3.88 10^6/uL (4.20-5.40); RED CELL DISTRIBUTION WIDTH 16.6 % (12.0-15.0); WHITE BLOOD COUNT 3.8 x10^3/uL (4.8-10.8)
[2020-04-07 18:00] LABS: MEAN PLATELET VOLUME 12.9 fL (7.9-10.8)
== END 2020-04-07 23:59 | disposition home or self-care (01) ==
LOC: LAB.WCP 08:00
PROVIDERS: ATTEND Physician Assistant Medical
DX: K92.2 Gastrointestinal hemorrhage, unspecified (principal)
CPT/HCPCS: 36415; 85025

== ENCOUNTER 2020-04-14 09:45 | Outpatient (CLI) | payer MEDICARE, OTHER ==
--- OUTSIDE RECORDS SUMMARY | 2020-04-19 14:45 | EXTERNAL MEDICAL SUMMARY RPT | Continuity of Care Document ---
:1950 Demographics Phone Unavailable Preferred Language [place] Marital Status Unknown Mormonism Affiliation Unknown Race Unknown Ethnic Group Unknown Author Organization [facility] Address [address] [place] [address] Phone Care Team Providers Name Role Phone PA-C Unavailable Unavailable Young Unavailable Unavailable Young Unavailable Unavailable [place] Unavailable Unavailable Andreas Unavailable Unavailable Problems date description facility 1957-04-29 00:00:00 Pure hypercholesterolemia [facility] 1957-04-29 00:00:00 Pure [facility]olemia, [facility] unspecified [facility] 1957-04-29 00:00:00 [facility] 2006 00:00:00 Primary biliary cirrhosis [facility] [address] 2006 00:00:00 [facility] [address] 2006 00:00:00 Acute hepatitis C without mention [facility] of hepatic coma [facility] 2006 00:00:00 Unspecified hypothyroidism [facility] 2006 00:00:00 Diabetes mellitus without mention [facility] of complication, type II or [facility] unspecified type, not stated as uncontrolled 2006 00:00:00 Other and unspecified [facility] hyperlipidemia [facility] 2006 00:00:00 Biliary cirrhosis [facility] 2006 00:00:00 Disorders of bursae and tendons [facility] shoulder region, unspecified [facility] 2006 00:00:00 Personal history of alcoholism [facility] 2006 00:00:00 Unspecified viral hepatitis C [facility] without hepatic coma [facility] 2006 00:00:00 Hypothyroidism, unspecified [facility] 2006 00:00:00 Type 2 diabetes mellitus without [facility] complications [facility] 2006 00:00:00 Other specified problems related to [facility] psychosocial circumstances [facility] 2006 00:00:00 Primary biliary cholangitis [facility] 2006 00:00:00 Type 2 diabetes mellitus [facility] 2006 00:00:00 Viral hepatitis C [facility] Prim demarco Care [facility] 2006 00:00:00 Hyperlipidemia [facility] Prim dem[facility]co Care [facility] 2006-05-21 00:00:00 Acquired absence of genital organs [facility] 2006-05-21 00:00:00 Acquired absence of other genital [facility] organ(s) [facility] 2006-05-23 00:00:00 Acute hepatitis C without mention [facility] of hepatic coma [facility] 2006-05-23 00:00:00 Unspecified viral hepatitis C [facility] without hepatic coma [facility] 2006-05-23 00:00:00 Viral hepatitis C [facility] 2006-10-17 00:00:00 Malignant neoplasm of other [facility] specified sites of body of uterus [facility] 2006-10-17 00:00:00 Calculus of gallbladder without [facility] mention of cholecystitis, without [facility] mention of obstruction 2006-10-17 00:00:00 Malignant neoplasm of uterus, part [facility] unspecified [facility] 2006-10-17 00:00:00 Calculus of gallbladder without [facility] cholecystitis without obstruction [facility] 2006-10-17 00:00:00 Biliary calculus [facility] Prim dem[facility]co Care [facility] 2007-01-16 00:00:00 Type 2 diabetes mellitus [facility] 2007-01-16 00:00:00 Diabetes mellitus without mention [facility] of complication, type II or [facility] unspecified type, not stated as uncontrolled 2007-01-16 00:00:00 Type 2 diabetes mellitus without [facility] complications [facility] 2007-08-21 00:00:00 Pain in joint involving multiple [facility] sites [address] 2007-08-21 00:00:00 Pain in unspecified joint [facility] [address] 2007-08-21 00:00:00 Ganglion, unspecified site [facility] [address] 2007-08-21 00:00:00 Ganglion cyst [facility] [address] 2007-08-21 00:00:00 Ganglion, unspecified [facility] 2007-08-21 00:00:00 [facility] 2007-10-07 00:00:00 Metabolic syndrome [facility] Prim dem[facility]co Care [address] 2007-10-07 00:00:00 Metabolic syndrome X [facility] [address] 2007-10-07 00:00:00 Dysmetabolic syndrome X [facility] 2008-09-28 00:00:00 Acute bronchitis [facility] Prim dem[facility]co Care [address] 2008-09-28 00:00:00 Acute bronchitis, unspecified [facility] Care [address] 2009-02-14 00:00:00 Ganglion of joint [facility] 2009-02-14 00:00:00 Corns and callosities [facility] 2009-02-14 00:00:00 Ganglion, left wrist [facility] 2009-02-14 00:00:00 Corns and callus [facility] 2009-02-14 00:00:00 Ganglion of wrist [facility] 2009-08-12 00:00:00 Acute bronchitis [facility] 2009-08-12 00:00:00 Acute bronchitis, [facility] 2009-09-07 00:00:00 Diabetes mellitus without mention i [facility] Primary Care of complication, type II or [address] unspecified type, not stated as uncontrolled 2009-09-07 00:00:00 Type 2 diabetes mellitus without [facility] complications [facility] 2010-11-15 00:00:00 [facility] [address] 2010-11-15 00:00:00 Other chest pain [facility] docena Care [address] 2010-11-15 00:00:00 Chest wall pain [facility] [address] 2010-11-29 00:00:00 Acute bronchitis, unspecified [facility] Primary Care [address] 2010-11-29 00:00:00 Acute bronchitis [facility] 2011-04-23 00:00:00 Sprain of unspecified site of right [facility] knee [address] 2011-04-23 00:00:00 Sprain of knee [facility] [address] 2011-04-23 00:00:00 [facility]rain of unspecified [facility] leg [facility] 2011-06-12 00:00:00 Personal history of alcoholism [facility] 2011-06-12 00:00:00 Other specified problems related to [facility] Primary Care psychosocial circumstances [facility] 2011-09-19 00:00:00 Other tear of medial meniscus, [facility] current injury, right knee [address] 2011-09-19 00:00:00 Tear [facility] [address] 2011-09-19 00:00:00 Tear of medial cartilage or [facility] meniscus of knee, current [facility] 2012-01-16 00:00:00 Acute vaginitis [facility] docena Care [address] 2012-01-16 00:00:00 Vaginitis and vulvovaginitis, [facility] Primary Care unspecified [facility] 2012-01-16 00:00:00 [facility] 2012-01-25 00:00:00 Alcohol [facility] dem[facility] [address] 2012-01-25 00:00:00 Tobacco use and exposure [facility] 2012-02-05 00:00:00 Persons encountering [facility] Primary Care services in other specified [address] circumstances 2012-02-05 00:00:00 Other [facility] 2012-06-30 00:00:00 Enthesopathy of unspecified site id [facility] Primary Care [address] 2012-06-30 00:00:00 Other specified enthesopathies of i [facility] Primary Care unspecified lower limb, excluding [address] foot 2012-06-30 00:00:00 [facility] 2012-08-28 11:20 HYPOTHYROIDISM NOS [facility] 2012-08-28 11:20 DIAB ANILA WO COMPL, TYPE II OR [facility] UNSPEC TYPE, NOT UNCNTRLD 2012-08-28 11:20 HYPERLIPIDEMIA NEC/NOS [facility] 2012-08-28 11:20 OTH MED,LT,CURRENT USE [facility] 2012-09-30 00:00:00 [facility] 2012-09-30 00:00:00 [facility] 2012-09-30 00:00:00 Other malaise and fatigue [facility] 2012-09-30 00:00:00 Other [facility] 2012-09-30 00:00:00 Fatigue [facility] 2012-09-30 08:00 DIAB ANILA WO COMPL, TYPE II OR [facility] UNSPEC TYPE, NOT UNCNTRLD 2012-09-30 08:00 URIN TRACT INFECTION NOS [facility] 2012-09-30 08:00 OTH MALAISE FATIGUE [facility] 2013-02-11 00:00:00 Routine general medical examination [facility] Care at a health care facility [address] 2013-02-11 00:00:00 Former smoker [facility] Prim dem[facility]co Care [address] 2013-02-11 00:00:00 Encounter for general adult medical [facility] examination without abnormal [facility] findings 2013-02-11 00:00:00 Screening - health check [facility] 2013-07-14 00:00:00 Microalbumin [facility] 2013-07-30 00:00:00 Former smoker [facility] Prim demarco Care [address] 2013-08-17 00:00:00 CMP [facility] Prim demarco Care [address] 2013-08-17 00:00:00 CBC [facility] Prim demarco Care [address] 2013-08-17 00:00:00 Alcohol intake [facility] [address] 2013-08-17 00:00:00 Tobacco use and exposure [facility] [address] 2013-08-17 00:00:00 Alcohol use [facility] Prim demarco Care [address] 2013-08-17 00:00:00 Former smoker [facility] Prim demarco Care [address] 2013-08-17 00:00:00 LIPIDS [facility] 2013-08-17 00:00:00 TSH [facility] 2013-09-07 00:00:00 HGBA1C [facility] 2013-09-15 10:20 HYPOTHYROIDISM NOS [facility] 2013-09-15 10:20 DIAB ANILA WO COMPL, TYPE II OR [facility] UNSPEC TYPE, NOT UNCNTRLD 2013-09-15 10:20 HYPERLIPIDEMIA NEC/NOS [facility] 2013-09-22 00:00:00 [facility] [address] 2013-09-22 00:00:00 Health-related behavior [facility] Primary Care [address] 2013-09-22 00:00:00 Tobacco use and exposure [facility] [address] 2013-09-22 00:00:00 Details of drug misuse behavior [facility] Primary Care [address] 2013-09-22 00:00:00 Alcohol use [facility] [address] 2013-09-22 00:00:00 Former smoker [facility] [address] 2013-11-02 16:02 OTH SCREEN MAMMO-MALIGN NEOPLASM OF [facility] BREAST 2013-11-04 11:05 HYPOTHYROIDISM NOS [facility] 2013-11-04 11:05 DIAB ANILA WO COMPL, TYPE II OR [facility] UNSPEC TYPE, NOT UNCNTRLD 2013-11-04 11:05 PAIN IN LIMB [facility] 2013-11-12 00:00:00 Sprain of unspecified site of [facility] shoulder and upper arm [address] 2013-11-12 00:00:00 Physical Therapy [facility] [address] 2013-11-12 00:00:00 Unspecified injury of shoulder and [facility] Primary [facility] upper arm, unspecified arm [address] 2013-11-12 00:00:00 Injury of upper extremity [facility] [address] 2013-11-12 00:00:00 Alcohol intake [facility] [address] 2013-11-12 00:00:00 Tobacco use and exposure [facility] [address] 2013-11-12 00:00:00 Exercise [facility] [address] 2013-11-12 00:00:00 Details of drug misuse behavior [facility] Primary Care [address] 2013-11-12 00:00:00 Alcohol [facility] [address] 2013-11-12 00:00:00 Former smoker [facility] [address] 2013-12-08 00:00:00 Orthopedics Consultation [facility] [address] 2013-12-14 00:00:00 C[facility] [address] 2013-12-14 00:00:00 LIPIDS [facility] [address] 2013-12-14 00:00:00 HGBA1C [facility] 2013-12-14 00:00:00 TSH [facility] 2013-12-21 10:20 HYPOTHYROIDISM NOS [facility] [place] 2013-12-21 10:20 DIAB ANILA WO COMPL, TYPE II OR [facility] UNSPEC TYPE, NOT UNCNTRLD 2013-12-21 10:20 HYPERLIPIDEMIA NEC/NOS [facility] [place] 2013-12-21 10:20 BILIARY CIRRHOSIS [facility] al [place] 2013-12-24 00:00:00 Gastroenterology Consultation [facility] Primary Care [address] 2013-12-24 00:00:00 Alcohol intake [facility] [address] 2013-12-24 00:00:00 Tobacco use and exposure [facility] [address] 2013-12-24 00:00:00 [facility] [address] 2013-12-24 00:00:00 Exercise [facility] 2013-12-24 00:00:00 Details of drug misuse behavior [facility] Primary Care [facility] 2013-12-24 00:00:00 Alcohol use [facility] 2014-02-01 00:00:00 Alcohol intake [facility] [address] 2014-02-01 00:00:00 Exercise [facility] [address] 2014-02-01 00:00:00 Details of drug misuse behavior idb [facility] Primary Care [address] 2014-02-01 00:00:00 Tobacco smoking status NHIS idbeyHe [facility] Primary Care [address] 2014-02-01 00:00:00 Tobacco use and exposure [facility] 2014-02-01 00:00:00 Alcohol [facility] 2014-02-01 00:00:00 Former smoker [facility] 2014-02-11 00:00:00 Alcohol intake [facility] Prim demarco Care [address] 2014-02-11 00:00:00 Health-related behavior [facility] [address] 2014-02-11 00:00:00 Exercise [facility] dem[facility]co Care [address] 2014-02-11 00:00:00 Alcohol use [facility] Prim demarco Care [address] 2014-02-11 00:00:00 [facility] dem[facility] [address] 2014-02-11 00:00:00 Tobacco use and exposure [facility] 2014-02-11 00:00:00 Details of drug misuse behavior [facility] 2014-02-11 00:00:00 Tobacco smoking status TXIS kayybejenniferHe [facility] Primary Care [facility] 2014-03-15 00:00:00 CMP [facility] dem[facility] [address] 2014-03-15 00:00:00 LIPIDS [facility] dem[facility] [address] 2014-03-15 00:00:00 HGBA1C [facility] 2014-03-15 00:00:00 TSH [facility] 2014-03-22 00:00:00 Physical Therapy [facility] dem[facility] [address] 2014-04-01 13:41 HYPOTHYROIDISM NOS [facility] [place] 2014-04-01 13:41 DIAB ANILA WO COMPL, TYPE II OR [facility] UNSPEC TYPE, NOT UNCNTRLD 2014-04-01 13:41 HYPERLIPIDEMIA NEC/NOS [facility] [place] 2014-05-03 00:00:00 Alcohol intake [facility] demarco Care [address] 2014-05-03 00:00:00 Exercise [facility] Prim demarco Care [address] 2014-05-03 00:00:00 Details of drug misuse behavior [facility] Primary Care [address] 2014-05-03 00:00:00 Tobacco smoking status NHIS kayybeJoe alth Primary Care [address] 2014-05-03 00:00:00 Neoplasm of uncertain behavior of [facility] Primary Care skin [facility] 2014-05-03 00:00:00 Health-related behavior [facility] 2014-05-03 00:00:00 Tobacco use and exposure [facility] 2014-05-03 00:00:00 Alcohol use [facility] deamrco Care [facility] 2014-05-03 00:00:00 Former smoker [facility] Prim dem[facility]co Care [facility] 2014-06-28 00:00:00 CMP [facility] Prim dem[facility]co Care [address] 2014-06-28 00:00:00 LIPIDS [facility] Prim demarco Care [address] 2014-06-28 00:00:00 CBCDP [facility] Prim demarco Care [address] 2014-06-28 00:00:00 HGBA1C [facility] 2014-06-28 00:00:00 TSH [facility] 2014-07-05 00:00:00 CMP [facility] Prim dem[facility]co Care [facility] 2014-07-05 00:00:00 LIPIDS [facility] Prim [facility] Care [facility] 2014-07-05 00:00:00 HGBA1C [facility] 2014-07-05 00:00:00 CBCDP [facility] 2014-07-07 09:15 HYPOTHYROIDISM NOS [facility] 2014-07-07 09:15 DIAB ANILA WO COMPL, TYPE II OR [facility] UNSPEC TYPE, NOT UNCNTRLD 2014-07-07 09:15 HYPERLIPIDEMIA NEC/NOS [facility] 2014-07-07 09:15 ROUTINE MEDICAL EXAM [facility] 2014-07-20 00:00:00 [facility] [address] 2014-07-20 00:00:00 Neoplasm of unspecified nature of [facility] Primary Care bone, soft tissue, and skin [facility] 2014-07-20 00:00:00 Neoplasm of unspecified behavior of [facility] bone, soft tissue, and skin [facility] 2014-07-21 00:00:00 [facility] [address] 2014-07-21 00:00:00 Tobacco use and exposure [facility] [address] 2014-07-21 00:00:00 Details of drug misuse behavior [facility] [address] 2014-07-21 00:00:00 [facility] [address] 2014-07-21 00:00:00 Health-related behavior [facility] 2014-07-21 00:00:00 Exercise [facility] 2014-07-21 00:00:00 Tobacco smoking status NHIS Petrona alth Primary Care [facility] 2014-07-21 00:00:00 [facility] 2014-07-28 00:00:00 [facility] [address] 2014-07-28 00:00:00 Tobacco use and exposure [facility] [address] 2014-07-28 00:00:00 Details of drug misuse behavior [facility] [address] 2014-07-28 00:00:00 [facility] [address] 2014-07-28 00:00:00 Health-related behavior [facility] 2014-07-28 00:00:00 [facility] 2014-07-28 00:00:00 Tobacco smoking status NHZOLTAN Russ [facility] Primary Care [place] 2014-07-28 00:00:00 Former [facility] 2014-08-20 00:00:00 Alcohol [facility] [address] 2014-08-20 00:00:00 Details of drug misuse behavior [facility] [address] 2014-08-20 00:00:00 Tobacco smoking status NHZOLTAN Russ [facility] Primary Care [address] 2014-08-20 00:00:00 Tobacco use and exposure [facility] 2014-08-20 00:00:00 Alcohol use [facility] 2014-08-20 00:00:00 Former smoker [facility]Replaced by [facility] 2014-08-24 13:10 LOCAL SUPRFICIAL SWELLNG [facility] 2014-09-28 00:00:00 CMP idbeReplaced by [facility] 2014-09-28 00:00:00 [facility]1C [facility] 2014-09-28 13:51 DIAB ANILA WO COMPL, TYPE II OR [facility] UNSPEC TYPE, NOT UNCNTRLD 2014-09-30 10:30 LOC PRIM OSTEOART-LDER [facility] 2014-09-30 10:30 BURSAE TENDONS DIS SHLDER NOS [facility] 2014-09-30 10:[address] ical [place] 2014-10-05 00:00:00 Orthopedics Consultation [facility] [address] 2014-10-12 00:00:00 Alcohol intake [facility] Care [address] 2014-10-12 00:00:00 [facility] [address] 2014-10-12 00:00:00 Tobacco use and exposure [facility] Primary Care [address] 2014-10-12 00:00:00 Tobacco smoking status NHIS [facility] Primary Care [address] 2014-10-12 00:00:00 Former sm[facility] [address] 2014-10-12 00:00:00 Details of drug misuse behavior [facility] Primary Care [address] [facility] 2014-10-12 00:00:00 [facility] use [facility] 2014-10-26 00:00:00 Alcohol intake [facility] Care [address] 2014-10-26 00:00:00 [facility]-related [facility] [address] 2014-10-26 00:00:00 Tobacco use and exposure [facility]alt h Primary Care [address] 2014-10-26 00:00:00 Tobacco smoking status NHIS [facility] [address] 2014-10-26 00:00:00 [facility] [address] 2014-10-26 00:00:00 Details of drug misuse behavior idb [facility] Primary Care [address] [facility] 2014-10-26 00:00:00 [facility] 2014-11-03 00:00:00 Alcohol intake [facility] [address] 2014-11-03 00:00:00 [facility] [address] 2014-11-03 00:00:00 Alcohol use [facility] [address] 2014-11-03 00:00:00 Former smoker [facility] [address] 2014-11-03 00:00:00 Disorders of bursae and tendons [facility] shoulder region, unspecified [facility] 2014-11-03 00:00:00 Unspecified rotator cuff tear or id [facility] Primary Care rupture of right shoulder, not [facility] specified as traumatic 2014-11-03 00:00:00 Tobacco use and exposure [facility] Primary Care [address] [facility] 2014-11-03 00:00:00 Details of drug misuse behavior [facility] Primary Care [address] 2014-11-03 00:00:00 Rotator cuff syndrome [facility] P [facility] 2014-11-03 00:00:00 Tobacco smoking status NHIS [facility] Primary Care [address] [facility] 2014-11-04 00:00:00 Breast screening, unspecified [facility] Primary Care [address] 2014-11-04 00:00:00 Other screening [facility] [address] 2014-11-04 00:00:00 Encounter for screening mammogram [facility] Primary Care for malignant neoplasm of breast Albert william 2014-11-04 00:00:00 Other specified health status [facility] Primary Care [address] 2014-11-04 00:00:00 Screening for malignant neoplasm of [facility] Primary [facility] breast [address] 2014-11-04 00:00:00 Screening mammography [facility] P rimary Care [address] [facility] 2014-12-08 00:00:00 Former smoker [facility] Prim demarco [facility] [address] [facility] 2014-12-08 00:00:00 CMP [facility] 2014-12-08 00:00:00 CBCDP [facility] Prim [facility]co [facility] 2014-12-08 10:55 BURSAE TENDONS DIS SHLDER NOS [facility] 2014-12-28 00:00:00 Alcohol intake [facility] [address] 2014-12-28 00:00:00 Alcohol use [facility] Prim [facility] [address] [facility] 2014-12-28 00:00:00 [facility] 2015-01-06 11:10 DIAB ANILA WO COMPL, TYPE II OR [facility] UNSPEC TYPE, NOT UNCNTRLD 2015-01-10 00:00:00 Exercise [facility] Prim [facility] 2015-01-11 06:06 HYPOTHYROIDISM NOS [facility] 2015-01-11 06:06 DIAB ANILA WO COMPL, TYPE II OR [facility] UNSPEC TYPE, NOT UNCNTRLD 2015-01-11 06:06 HYPERLIPIDEMIA NEC/NOS [facility] 2015-01-11 06:06 DIVERTICULOSIS COLON (W/O MENT OF [facility] HEMORRHAGE) 2015-01-11 06:06 BILIARY CIRRHOSIS [facility] Medic al [place] 2015-01-11 06:06 BURSAE TENDONS DIS SHLDER NOS [facility] 2015-01-11 06:06 SYNOV/TEND/BURSA DIS NOS [facility] 2015-01-11 06:[address] [facility] ical [place] 2015-01-11 06:06 HX-UTERUS MALIGNANCY NEC [facility] 2015-01-11 06:06 PERSONAL HISTORY, URINARY (TRACT) [facility] INFECTION 2015-01-11 06:06 HISTORY OF TOBACCO USE [facility] edical [place] 2015-01-11 06:06 OTH MED,LT,CURRENT USE [facility] 2015-01-11 06:06 PERSONAL HISTORY OF ANTINEOPLASTIC i [facility] CHEMOTHERAPY 2015-01-18 00:00:00 Complete rotator cuff tear or [facility] Primary Care rupture of right shoulder, not [address] specified as traumatic 2015-01-18 00:00:00 Complete rupture of rotator cuff [facility] Primary Care [facility] 2015-01-18 00:00:00 Full thickness rotator cuff tear [facility] Care [facility] 2015-02-17 00:00:00 Encounter for other specified [facility] Primary Care aftercare following surgery [facility] 2015-02-17 00:00:00 Encounter for other specified [facility] Care surgical aftercare [address] [facility] 2015-03-31 00:00:00 Major Joint [facility]jection [facility] 2015-03-31 00:00:00 Depo-Medrol [facility] 2015-03-31 00:00:00 Adhesive capsulitis of shoulder [facility] Primary Care [facility] 2015-03-31 00:00:00 Shoulder 2V; Ex[facility] 2015-03-31 00:00:00 Adhesive capsulitis of right [facility] Primary Care shoulder [address] [facility] 2015-05-05 00:00:00 Depo-Medrol [facility] Prim docena Care [address] 2015-05-05 00:00:00 Major Joint Injection [facility] 2015-06-07 00:00:00 Physical [facility] [address] 2015-07-18 00:00:00 Encounter for other specified [facility] Primary Care aftercare following surgery [address] 2015-07-18 00:00:00 [facility]operative care [facility] [address] 2015-07-18 00:00:00 Encounter for other specified [facility] Care surgical aftercare [facility] 2015-07-21 00:00:00 Alcohol intake [facility] [address] 2015-07-21 00:00:00 Health-related behavior [facility] [address] 2015-07-21 00:00:00 [facility] [address] 2015-07-21 00:00:00 Tobacco smoking status NHZOLTAN Russ [facility] Primary Care [address] 2015-07-21 00:00:00 [facility] [address] 2015-07-21 00:00:00 Tobacco use and exposure [facility] 2015-07-21 00:00:00 Details of drug misuse behavior idb [facility] Primary Care [address] [facility] 2015-07-21 00:00:00 [facility] 2015-09-23 00:00:00 Tobacco use and exposure [facility] [address] 2015-09-23 00:00:00 Details of drug misuse behavior [facility] Primary Care [address] 2015-09-23 00:00:00 Alcohol [facility] [address] 2015-09-23 00:00:00 Other specified diseases of hair id [facility] Primary Care and hair follicles [facility] 2015-09-23 00:00:00 Follicular disorder, unspecified id [facility] 2015-09-23 00:00:00 Folliculitis [facility] 2015-09-23 00:00:00 Alcohol [facility] 2015-09-23 00:00:00 Health-related behavior [facility] [address] [facility] 2015-09-23 00:00:00 Exercise [facility] 2015-09-23 00:00:00 Tobacco smoking status NHZOLTAN Russ [facility] Primary Care [address] [facility] 2015-09-23 00:00:00 Former smoker [facility] 2015-10-14 00:00:00 Alcohol [facility] [address] 2015-10-14 00:00:00 Tobacco use and exposure [facility] [address] 2015-10-14 00:00:00 Details of drug misuse behavior [facility] [address] 2015-10-14 00:00:00 [facility] [address] 2015-10-14 00:00:00 Health-related behavior [facility] [address] [facility] 2015-10-14 00:00:00 [facility] [address] [facility] 2015-10-14 00:00:00 Tobacco smoking status TXIS [facility]beyHe [facility] Primary Care [address] [facility] 2015-10-14 00:00:00 [facility] [facility] [address] [facility] 2015-12-22 00:00:00 Alcohol [facility] [address] 2015-12-22 00:00:00 Tobacco use and exposure [facility] [address] 2015-12-22 00:00:00 Details of drug misuse behavior [facility] [address] 2015-12-22 00:00:00 Tobacco smoking status TXIS WhidbeyHe [facility] Primary Care [address] 2015-12-22 00:00:00 Health-related behavior [facility] [address] [facility] 2015-12-22 00:00:00 [facility] 2015-12-22 00:00:00 Alcohol use [facility] 2015-12-22 00:00:00 Former smoker [facility] 2016-01-17 00:00:00 Alcohol intake [facility] [address] 2016-01-17 00:00:00 Tobacco use and exposure [facility] [address] 2016-01-17 00:00:00 Details of drug misuse behavior idb [facility] Primary Care [address] 2016-01-17 00:00:00 Alcohol use [facility] [address] 2016-01-17 00:00:00 APF forms [facility] 2016-01-17 00:00:00 Health-related behavior [facility] [address] [facility] 2016-01-17 00:00:00 Exercise [facility] demarco Care [address] [facility] 2016-01-17 00:00:00 Tobacco smoking status TXIS WhidbeyHe [facility] Primary Care [address] [facility] 2016-01-17 00:00:00 Former smoker [facility] demarco Care [address] [facility] 2016-03-01 00:00:00 APF forms [facility] Prim demarco Care [address] 2016-03-01 00:00:00 [facility] demarco Care [address] 2016-03-01 00:00:00 Details of drug misuse behavior [facility] [address] 2016-03-01 00:00:00 Tobacco smoking status TXIS WhkayybeyHe [facility] Primary Care [address] 2016-03-01 00:00:00 Fluarix Quadrivalent Intramuscular [facility] Suspension 0.5 ML [facility] 2016-03-01 00:00:00 Alcohol intake [facility] 2016-03-01 00:00:00 Health-related behavior [facility] Primary [facility] [address] [facility] 2016-03-01 00:00:00 Tobacco use and exposure [facility] 2016-03-01 00:00:00 Alcohol [facility] demarco Care [address] [facility] 2016-03-01 00:00:00 Former smoker [facility] 2016-09-06 00:00:00 TSH w/reflex to FT4, if indicated [facility] Care [address] 2016-09-06 00:00:00 Internal hemorrhoids without [facility] mention of complication [address] 2016-09-06 00:00:00 CMP [facility] demarco Care [address] 2016-09-06 00:00:00 LIPIDS [facility] demarco Care [address] 2016-09-06 00:00:00 CBCDP [facility] demarco Care [address] 2016-09-06 00:00:00 Other hemorrhoids [facility] Prim demarco Care [address] 2016-09-06 00:00:00 Alcohol intake [facility] dem[facility]co Care [place] [facility] 2016-09-06 00:00:00 Aftercare [facility] Prim dem[facility]co Care [place] [facility] 2016-09-06 00:00:00 Alcohol use [facility]Health Prim demarco Care [place] [facility] 2016-09-06 00:00:00 [facility] 2016-09-06 00:00:00 Long-term (current) use of other id [facility] medications [facility] 2016-09-06 00:00:00 Microalbumin [facility] Prim demarco [facility] 2016-09-06 00:00:00 HGBA1C [facility] 2016-09-06 00:00:00 Candidiasis of vulva and vagina idb [facility] Primary Care [facility] 2016-09-06 00:00:00 Encounter [facility] therapeutic drug [facility] level monitoring [facility] 2016-09-06 00:00:00 Tobacco use and exposure [facility] 2016-09-06 00:00:00 Details of drug misuse behavior idb [facility] Primary Care [facility] 2016-09-06 00:00:00 Candidiasis of vagina [facility] 2016-09-06 00:00:00 Internal hemorrhoids [facility] Pr [facility] 2016-10-09 00:00:00 MM SCR DIGITAL BILAT [facility] Pr [facility] 2016-11-12 00:00 ENCOUNTER FOR THERAPEUTIC DRUG [facility] LEVEL MONITORING 2016-11-12 11:15 HYPOTHYROIDISM, UNSPECIFIED [facility] 2016-11-12 11:15 TYPE 2 DIABETES MELLITUS WITHOUT idb [facility] COMPLICATIONS 2016-11-12 11:15 PURE HYPERCHOLESTEROLEMIA, [facility] UNSPECIFIED 2016-11-12 11:15 ENCOUNTER FOR THERAPEUTIC DRUG [facility] LEVEL MONITORING 2016-11-12 11:15 OTHER FPC (CURRENT) DRUG [facility] THERAPY 2016-11-19 00:00:00 Alcohol intake [facility] [address] 2016-11-19 00:00:00 Exercise [facility] [address] 2016-11-19 00:00:00 Alcohol use [facility] [address] 2016-11-19 00:00:00 Former smoker [facility] [address] 2016-11-19 00:00:00 Tobacco use and exposure [facility] Primary Care [facility] 2016-11-19 00:00:00 Details of drug misuse behavior [facility] Care [facility] 2016-11-20 00:00:00 DM Education Consultation [facility] Primary Care [address] 2016-12-10 00:00:00 CMP [facility] 2016-12-10 09:50 TYPE 2 DIABETES MELLITUS WITHOUT [facility] COMPLICATIONS 2016-12-10 09:50 OTHER SPECIFIED COUNSELING [facility] 2016-12-26 00:00 PRIMARY BILIARY [facility]RHOSIS [facility] 2016-12-26 13:20 PRIMARY BILIARY [facility]RHOSIS [facility] 2017-01-02 13:00 TYPE 2 DIABETES MELLITUS WITHOUT [facility] COMPLICATIONS 2017-01-02 13:00 OTHER SPECIFIED COUNSELING [facility] 2017-01-14 00:00:00 CMP [facility] [address] 2017-01-22 00:00 PRIMARY BILIARY CIRRHOSIS [facility] 2017-01-22 14:00 PRIMARY BILIARY [facility]RHOSIS [facility] 2017-01-25 13:00 TYPE 2 DIABETES MELLITUS WITHOUT [facility] COMPLICATIONS 2017-01-25 13:00 OTHER SPECIFIED COUNSELING [facility] 2017-01-28 00:00:00 LIPIDS [facility] [address] 2017-01-28 00:00:00 HGBA1C [facility] [address] 2017-01-28 00:00:00 CBC W/Diff/Plt [facility] [address] 2017-01-28 00:00:00 Nutrition [facility]ation [facility] [address] 2017-01-28 00:00:00 CMP [facility] demarco Care [place] [facility] 2017-02-25 08:00 TYPE 2 DIABETES MELLITUS WITHOUT idb [facility] COMPLICATIONS 2017-02-25 08:00 PRIMARY BILIARY CIRRHOSIS [facility] 2017-03-11 00:00:00 MM SCR DIGITAL BILAT [facility] Pr imary Care [address] [facility] 2017-03-11 00:00:00 Tobacco use and exposure [facility] [address] [facility] 2017-03-11 00:00:00 Details of drug misuse behavior [facility] Primary Care [address] 2017-03-11 00:00:00 Tobacco smoking status TXZOLTAN Shantel [facility] Primary Care [address] 2017-03-11 00:00:00 Health[facility]related [facility] 2017-03-11 00:00:00 Exercise [facility] dem[facility]co [facility] 2017-03-11 00:00:00 Alcohol use [facility] 2017-03-11 00:00:00 Former smoker [facility] demarco Care [place] [facility] 2017-04-23 00:00:00 Tobacco use and exposure [facility] Primary Care [address] 2017-04-23 00:00:00 Details of drug misuse behavior [facility] Primary Care [address] 2017-04-23 00:00:00 Alcohol use [facility] [address] 2017-04-23 00:00:00 Health-related behavior [facility] Primary Care [address] [facility] 2017-04-23 00:00:00 Exercise [facility] demarco Care [address] [facility] 2017-04-23 00:00:00 Tobacco smoking status NHIS Shantel [facility] Primary Care [address] [facility] 2017-04-23 00:00:00 Former smoker [facility] demarco [facility] 2017-06-11 00:00:00 C[facility] [address] 2017-06-11 00:00:00 HGBA1C [facility] [address] 2017-06-11 00:00:00 Lipid Panel [facility] 2017-07-02 00:00:00 Orthopedics Consultation [facility] [address] [facility] 2018-03-05 00:00:00 COMPREHENSIVE METABOLIC PANEL [facility] Primary Care [address] [facility] 2018-03-05 00:00:00 MICROALBUMIN-RANDOM URINE [facility] Primary Care [address] 2018-03-05 00:00:00 TSH [facility] [address] 2018-03-05 00:00:00 LIPID SCREEN, FASTING [facility] P [facility] 2018-03-05 00:00:00 HGBA1C [facility] 2018-03-05 00:00:00 CBC W/Diff/Plt [facility] 2018-03-11 00:00 TYPE 2 DIABETES MELLITUS WITHOUT [facility] COMPLICATIONS 2018-03-11 13:30 HYPOTHYROIDISM, UNSPECIFIED [facility] 2018-03-11 13:30 TYPE 2 DIABETES MELLITUS WITHOUT [facility] COMPLICATIONS 2018-03-11 13:30 PURE HYPERCHOLESTEROLEMIA, [facility] UNSPECIFIED 2018-03-11 13:30 FOLLICULAR DISORDER, UNSPECIFIED [facility] 2018-03-24 00:00:00 Health-related behavior [facility] Primary Care [address] 2018-03-24 00:00:00 Exercise [facility] [place] [facility] 2018-03-24 00:00:00 Alcohol use [facility] [place] [facility] 2018-03-24 00:00:00 Former smoker [facility] [address] 2018-03-24 00:00:00 Tobacco use and exposure [facility] 2018-03-24 00:00:00 Details of drug misuse behavior [facility] Primary Care [address] [facility] 2018-03-24 00:00:00 Tobacco smoking status NHIS [facility] 2018-03-24 00:00:00 Total score? [facility]ot [facility] 2018-06-02 00:00:00 COMPREHENSIVE METABOLIC PANEL [facility] Primary Care [address] 2018-06-02 00:00:00 LIPID SCREEN, FASTING [facility] [address] 2018-06-02 00:00:00 HGBA1C [facility] demarco [facility] [address] 2018-06-02 00:00:00 TSH [facility]Replaced by [facility] 2018-11-11 00:00 TYPE 2 DIABETES MELLITUS WITHOUT idb [facility] COMPLICATIONS 2018-11-11 15:17 HYPOTHYROIDISM, UNSPECIFIED [facility] 2018-11-11 15:17 TYPE 2 DIABETES MELLITUS WITHOUT idb [facility] COMPLICATIONS 2018-11-11 15:17 PURE HYPERCHOLESTEROLEMIA, [facility] UNSPECIFIED 2019-02-12 00:00:00 Health-related behavior [facility] Primary Care [facility] 2019-02-12 00:00:00 Tobacco use and exposure [facility] Primary Care [facility] 2019-02-12 00:00:00 Exercise [facility] 2019-02-12 00:00:00 Details of drug misuse behavior [facility] Primary Care [facility] 2019-02-12 00:00:00 Alcohol use [facility] 2019-02-12 00:00:00 Tobacco smoking status NHIS [facility] Primary Care [facility] 2019-02-12 00:00:00 Total score? [facility] 2019-02[facility]12 00:00:00 Former smoker [facility] [place] [facility] 2019-02-13 00:00:00 COMPREHENSIVE METABOLIC PANEL [facility] 2019-02-13 00:00:00 LIPID SCREEN, FASTING [facility]-02[facility]13 00:00:00 HGBA1C [facility] 2019-02-24 00:00 TYPE 2 DIABETES MELLITUS WITHOUT idb [facility] COMPLICATIONS 2019-02-24 11:39 TYPE 2 DIABETES MELLITUS WITHOUT idb [facility] COMPLICATIONS 2019-05-08 00:00 DYSURIA [facility] 2019-05-08 00:00:00 Urine C&S [facility] [place] [facility] 2019-05-08 00:00:00 Urinary tract infection, site not i [facility] Primary Care specified [place] [facility] 2019-05-08 00:00:00 Dysuria [facility] [place] [facility] 2019-05-08 00:00:00 Health-related behavior [facility] [place] [facility] 2019-05-08 00:00:00 Tobacco use and exposure [facility] [place] [facility] 2019-05-08 00:00:00 Exercise [facility] [place] [facility] 2019-05-08 00:00:00 Details of drug misuse behavior [facility] Primary Care [place] [facility] 2019-05-08 00:00:00 Urinary tract infectious disease id [facility] Primary Care [place] [facility] 2019-05-08 00:00:00 Alcohol use [facility] [place] [facility] 2019-05-08 00:00:00 Tobacco smoking status NHIS [facility] Primary Care [place] [facility] 2019-05-08 00:00:00 Total score? [facility] [place] [facility] 2019-05-08 00:00:00 Former smoker [facility] [place] [facility] 2019-05-08 08:00 DYSURIA [facility] 2019-05-17 00:00:00 BMP [facility] [place] [facility] 2019-05-17 00:00:00 HGBA1C [facility] [place] [facility] 2019-05-27 00:00 TYPE 2 DIABETES MELLITUS WITHOUT idb [facility] COMPLICATIONS 2019-05-27 10:09 TYPE 2 DIABETES MELLITUS WITHOUT idb [facility] COMPLICATIONS 2019-06-05 00:00:00 Health-related behavior [facility] [place] [facility] 2019-06-05 00:00:00 Tobacco use and exposure [facility] [place] [facility] 2019-06-05 00:00:00 Exercise [facility] 2019-06-05 00:00:00 Details of drug misuse behavior [facility] 2019-06-05 00:00:00 Alcohol use [facility] 2019-06-05 00:00:00 Tobacco smoking status NHIS [facility] Primary [facility] 2019-06-05 00:00:00 Total score? [facility] 2019-06-05 00:00:00 Former smoker [facility] 2019-08-28 00:00:00 MICROALBUMIN/CREAT RATIO [facility] 2019-08-28 00:00:00 Basic Metabolic Panel (BMP) [facility] 2019-08-28 00:00:00 HGBA1C [facility] 2019-09-04 00:00 TYPE 2 DIABETES MELLITUS WITHOUT [facility] COMPLICATIONS 2019-09-04 15:00 TYPE 2 DIABETES MELLITUS WITHOUT [facility] COMPLICATIONS 2019-09-07 00:00:00 DEXA BONE DENSITY COMPLETE [facility] Primary Care [facility] 2019-09-07 00:00:00 Health-related behavior [facility] 2019-09-07 00:00:00 Tobacco use and exposure [facility] 2019-09-07 00:00:00 Exercise [facility] 2019-09-07 00:00:00 Details of drug misuse behavior [facility] 2019-09-07 00:00:00 [facility] 2019-09-07 00:00:00 Tobacco smoking status NHIS [facility] Primary [facility] 2019-09-07 00:00:00 Total score? [facility] 2019-09-07 00:00:00 Former smoker [facility] Prim [facility] 2019-12-08 00:00:00 COMPREHENSIVE METABOLIC PANEL [facility] 2019-12-08 00:00:00 LIPID SCREEN, FASTING [facility] P rimary Care [facility] 2019-12-08 00:00:00 HGBA1C [facility] Prim [facility] 2020-01-01 13:17 ENCNTR SCREEN MAMMOGRAM FOR [facility] MALIGNANT NEOPLASM OF BREAST 2020-02-13 14:19 PROC/TRTMT NOT CRD OUT D/T PT LV [facility] BEF SEEN BY [facility] 2020-02-13 14:19 PROC/TRTMT NOT CRD OUT D/T PT LV [facility] BEF SEEN BY [facility] PROV 2020-02-16 13:33 TYPE 2 DIABETES MELLITUS WITHOUT [facility] COMPLICATIONS 2020-02-16 13:33 CHRONIC OR UNSPECIFIED GASTRIC [facility] ULCER WITH HEMORRHA 2020-02-16 13:33 CHRONIC OR UNSPECIFIED GASTRIC [facility] ULCER WITH HEMORRHAGE 2020-02-16 13:33 DVTRCLI OF LG INT W/O PERFORATION [facility] OR ABSCESS W BLE 2020-02-16 13:33 DVTRCLI OF LG INT W/O PERFORATION [facility] OR ABSCESS W BLEEDING 2020-02-16 13:33 OTHER CHRONIC HEPATITIS, NOT [facility] ELSEWHERE CLASSIFIED 2020-02-16 13:33 HEMATEMESIS [facility] al Center 2020-02-16 13:33 LACERATION WITHOUT FOREIGN BODY OF [facility] SCALP, INITIAL 2020-02-16 13:33 LACERATION WITHOUT FOREIGN BODY OF [facility] SCALP, INITIAL ENCOUNTER 2020-02-16 13:33 SPRAIN OF UNSPECIFIED LIGAMENT OF [facility] RIGHT ANKLE, INI 2020-02-16 13:33 ADVERSE EFFECT OF PROPIONIC ACID [facility] DERIVATIVES, INIT 2020-02-16 13:33 FALL SAME LEV FROM SLIP/TRIP W/O [facility] STRIKE AGAINST OB 2020-02-16 13:[address] IN UNSP NON-INSTITUT [facility] (PRIVATE) RESIDENC 2020-02-16 13:[address] [facility] NON-INSTITUT [facility] (PRIVATE) RESIDENCE PLACE 2020-02-16 13:33 FPC (CURRENT) USE OF ORAL [facility] HYPOGLYCEMIC DRUGS 2020-02-16 13:33 PERSONAL HISTORY OF NICOTINE [facility] DEPENDENCE 2020-02-16 13:33 HYPOTHYROIDISM, UNSPECIFIED [facility] 2020-02-16 13:33 TYPE 2 DIABETES MELLITUS WITH [facility] HYPERGLYCEMIA 2020-02-16 13:33 UNSPECIFIED OSTEOARTHRITIS, [facility] UNSPECIFIED SITE 2020-02-16 13:33 TACHYCARDIA, UNSPECIFIED [facility] 2020-02-16 13:33 SPRAIN OF UNSPECIFIED LIGAMENT OF [facility] RIGHT ANKLE, INIT ENCNTR 2020-02-16 13:33 ADVERSE EFFECT OF PROPIONIC ACID [facility] DERIVATIVES, INIT ENCNTR 2020-02-16 13:33 FALL SAME LEV FROM SLIP/TRIP W/O [facility] STRIKE AGAINST OBJECT, INIT 2020-02-16 13:33 OTHER FORCER MAKER (CURRENT) DRUG [facility] THERAPY 2020-02-18 00:00:00 Diverticulitis of colon without [facility] mention of hemorrhage [place] [facility] 2020-02-18 00:00:00 Diverticulitis of intestine, part i [facility] unspecified, without perforation or [place] [facility] abscess without bleeding 2020-02-18 00:00:00 Chronic hepatitis, unspecified [facility] [place] [facility] 2020-02-18 00:00:00 Diverticulitis [facility] [place] [facility] 2020-02-18 00:00:00 Chronic hepatitis [facility] [place] [facility] 2020-02-23 00:00 TYPE 2 DIABETES MELLITUS WITHOUT [facility] COMPLICATIONS 2020-02-23 00:00:00 Iron & TIBC [facility] Prim dem[facility]co Care [place] [facility] 2020-02-23 00:00:00 Hemorrhage of gastrointestinal [facility] tract, unspecified [facility] 2020-02-23 00:00:00 Pain in joint involving lower leg Whi [facility] Primary Care [facility] 2020-02-23 00:00:00 Ferritin [facility] 2020-02-23 00:00:00 CBC W/Diff/Plt [facility] Prim [facility] 2020-02-23 00:00:00 Gastrointestinal hemorrhage, [facility] Primary Care unspecified [facility] 2020-02-23 00:00:00 Pain in right knee [facility] Prim [facility] 2020-02-23 00:00:00 Knee pain [facility] Prim [facility] 2020-02-23 00:00:00 Gastrointestinal hemorrhage [facility] Primary Care [facility] 2020-02-23 08:00 TYPE 2 DIABETES MELLITUS WITHOUT [facility] COMPLICATIONS 2020-02-23 08:00 GASTROINTESTINAL HEMORRHAGE, [facility] UNSPECIFIED 2020-03-17 00:00 ACUTE VAGINITIS [facility] 2020-03-17 00:00:00 CULT WOUND AEROBIC W/GR STAIN [facility] 2020-03-17 00:00:00 HSV CULTURE WITH REFLEX TO TYPING [facility] Primary Care [facility] 2020-03-17 00:00:00 Health-related behavior [facility] Primary Care [facility] 2020-03-17 00:00:00 Tobacco use and exposure [facility] Primary Care [facility] 2020-03-17 00:00:00 Exercise [facility] 2020-03-17 00:00:00 Details of drug misuse behavior [facility] Primary Care [facility] 2020-03-17 00:00:00 Little interest or pleasure in [facility] doing things? [facility] 2020-03-17 00:00:00 Feeling down, depressed, or [facility] hopeless? [facility] 2020-03-17 00:00:00 Patient Health Questionnaire 2 item W [facility] (PHQ2) total score [facility] 2020-03-17 00:00:00 [facility] [place] [facility] 2020-03-17 00:00:00 Tobacco smoking [facility] [place] [facility] 2020-03-17 00:00:00 Total score? [facility] [place] [facility] 2020-03-17 00:00:00 Former [facility] [place] [facility] 2020-03-17 11:30 ACUTE VAGINITIS [facility] 2020-04-07 00:00 GASTROINTESTINAL HEMORRHAGE, [facility] UNSPECIFIED 2020-04-07 00:00:00 CBC W/Diff/Plt [facility] 2020-04-07 00:00:00 Health[facility]related [facility] [place] [facility] 2020-04-07 00:00:00 Tobacco use and exposure [facility] [place] [facility] 2020-04-07 00:00:00 Exercise [facility] [place] [facility] 2020-04-07 00:00:00 Details of drug misuse behavior [facility] [place] [facility] 2020-04-07 00:00:00 [facility] [place] [facility] 2020-04-07 00:00:00 Tobacco [facility] [place] [facility] 2020-04-07 00:00:00 Total score? [facility] [place] [facility] 2020-04-07 00:00:00 [facility] [place] [facility] 2020-04-13 00:00:00 Health-related behavior [facility] [place] [facility] 2020-04-13 00:00:00 Tobacco use and exposure [facility] [place] [facility] 2020-04-13 00:00:00 Exercise [facility] [place] [facility] 2020-04-13 00:00:00 Details of drug misuse behavior [facility] [place] [facility] 2020-04-13 00:00:00 Alcohol use [facility] [place] [facility] 2020-04-13 00:00:00 Tobacco smoking status NHIS [facility] 2020-04-13 00:00:00 Total score? [facility] [place] [facility] 2020-04-13 00:00:00 Former smoker [facility] Prim [facility] [place] [facility] Allergies date description facility [facility] AZITHROMYCIN [facility] CELECOXIB [facility] CODEINE [facility] DOXEPIN [facility] DULOXETINE [facility] ERYTHROMYCIN [facility] FENTANYL [facility] FLU VIRUS VACCINE [facility] FLUOXETINE [facility] G[facility]APENTIN [facility] HYDROCODONE [facility] INFLUENZA VACCINE LIVE [facility] M edical Center MELOXICAM [facility] MEPERIDINE [facility] MORPHINE [facility] NAPROXEN [facility] OXYCODONE [facility] PHENAZOPYRIDINE HCL [facility] POLLEN EXTRACT [facility] PROPOFOL [facility] PSEUDOEPHEDRINE [facility] SULFANILAMIDE [facility] SULFASALAZINE [facility] TRAZODONE [facility] CEPHALEXIN [facility] HYDROCODONE-ACETAMINOPHEN [facility] NORTRIPTYLINE HCL [facility] MORPHINE AND RELATED [facility] NO KNOWN ENVIRONMENTAL ALLERGIES [facility] PENICILLINS [facility] SULFA ANTIBIOTICS [facility] ALLOPURINOL [facility] CIPROFLOXACIN [facility] CODEINE [facility] LOVASTATIN [facility] MACROLIDE ANTIBIOTICS [facility] Me dical Center NSAIDS (NON-STEROIDAL ANTI-INFLAMMATORY DRUG) [facility] OXYBUTYNIN CHLORIDE [facility] RIVAROXABAN [facility] TELBIVUDINE [facility] TOLMETIN [facility] NO KNOWN ALLERGIES [facility] NO ALLERGY INFORMATION AVAILABLE [facility] PENICILLINS [facility] [id number]-DIY REDUCTASE INHIBITORS [facility] NO KNOWN ALLERGIES [facility] CITRUS AND DERIVATIVES [facility] FOOD [facility] NIACIN [facility] SOY [facility] MORPHINE [facility] ASPIRIN [facility] NUT - UNSPECIFIED [facility] PREDNISONE [facility] CHOCOLATE FLAVOR [facility] MILK [facility] SULFAMETHOXAZOLE-TRIMETHOPRIM [facility] No Known Drug Allergies [facility] NO KNOWN ALLERGIES [facility] No Known Drug Allergies [facility] BEE VENOM [facility] CAMPHOR [facility] DOCUSATE [facility] EPINEPHRINE [facility] FEXOFENADINE [facility] HYDROCODONE [facility] IBUPROFEN [facility] LISINOPRIL [facility] METFORMIN [facility] MONTELUKAST [facility] POISON OAK EXTRACT [facility] PREDNISONE [facility] NO KNOWN ENVIRONMENTAL ALLERGIES [facility] PENICILLINS [facility] SULFA ANTIBIOTICS [facility] NO KNOWN ALLERGIES [facility] NO ALLERGY INFORMATION AVAILABLE [facility] PENICILLINS [facility] TETRACYCLINES [facility] ADHESIVE [facility] NO KNOWN ALLERGIES [facility] EGG [facility] KIWI [facility] STRAWBERRY [facility] SUCRALFATE [facility] DEXLANSOPRAZOLE [facility] MIRABEGRON [facility] MORPHINE [facility] CODEINE [facility] ASPIRIN [facility] EPOXY RESIN [facility] LOVASTATIN [facility] FLUOCINONIDE [facility] FUROSEMIDE [facility] NAPROXEN [facility] NAPROXEN SODIUM [facility] CLINDAMYCIN [facility] SULFAMETHOXAZOLE [facility] CIPROFLOXACIN [facility] KETOCONAZOLE [facility] MICONAZOLE NITRATE [facility] OMEPRAZOLE [facility] PRAVASTATIN [facility] SIMVASTATIN [facility] AZITHROMYCIN [facility] AMOXICILLIN [facility] CARVEDILOL [facility] BUDESONIDE [facility] VENLAFAXINE [facility] OXYMETAZOLINE [facility] PROPRANOLOL [facility] PHENAZOPYRIDINE [facility] FLUTICASONE [facility] LOSARTAN [facility] LISINOPRIL [facility] RALOXIFENE [facility] RABEPRAZOLE [facility] RED YEAST RICE [facility] LEVOCETIRIZINE [facility] ERYTHROMYCIN [facility] ALENDRONATE [facility] FLUORIDE (SODIUM) [facility] VALSARTAN-HYDROCHLOROTHIAZIDE [facility] No Known Drug Allergies [facility] NO KNOWN ALLERGIES [facility] PREDNISONE [facility] No Known Drug Allergies [facility] Medications date description facility URSODIOL [facility] [address] METFORMIN HCL [facility] [address] URSODIOL [facility] [address] METFORMIN [facility]CL [facility] [address] LEVOTHYROXINE SODIUM [facility] Micaela [facility] [facility] [address] 2006-02-26 00:00:00 null [facility] [address] 2006-02-26 00:00:00 null [facility] [address] 2006-02-26 00:00:00 EZETIMIBE [facility] [address] 2006-02-26 00:00:00 EZETIMIBE [facility] [address] 2006-02-26 00:00:00 EZETIMIBE [facility] [address] 2006-02-26 00:00:00 null [facility] 2006-02-26 00:00:00 null [facility] [place] [facility] 2006-02-26 00:00:00 EZETIMIBE [facility] [place] [facility] 2006-02-26 00:00:00 EZETIMIBE [facility] [place] [facility] 2006 00:00:00 null [facility] [address] 2006 00:00:00 null [facility] [address] 2006 00:00:00 null [facility] [address] 2006 00:00:00 null [facility] [address] 2006 00:00:00 null [facility] deamrco [facility] [address] 2006 00:00:00 null [facility] [address] 2006 00:00:00 null [facility] [address] 2006 00:00:00 null [facility] [address] 2006 00:00:00 METFORMIN HCL [facility] [address] 2006 00:00:00 URSODIOL [facility] [address] 2006 00:00:00 LEVOTHYROXINE SODIUM [facility] Pr [facility] [address] 2006 00:00:00 METFORMIN HCL [facility] [address] 2006 00:00:00 EZETIMIBE-SIMVASTATIN [facility] P [facility] [address] 2006 00:00:00 EZETIMIBE-SIMVASTATIN [facility] [address] 2006 00:00:00 EZETIMIBE-SIMVASTATIN [facility] P [facility] [address] 2006 00:00:00 URSODIOL [facility] Prim dem[facility] [address] 2006 00:00:00 METFORMIN HCL [facility] [address] 2006 00:00:00 LEVOTHYROXINE SODIUM [facility] Pr [facility] [address] 2006 00:00:00 null [facility] 2006 00:00:00 null [facility] 2006 00:00:00 null [facility] [place] [facility] 2006 00:00:00 null [facility] [facility] 2006 00:00:00 null [facility] 2006 00:00:00 null [facility] 2006 00:00:00 null [facility] 2006 00:00:00 null [facility] 2006 00:00:00 METFORMIN HCL [facility] 2006 00:00:00 URSODIOL [facility] 2006 00:00:00 LEVOTHYROXINE SODIUM [facility] 2006 00:00:00 EZETIMIBE-SIMVASTATIN [facility] 2006 00:00:00 EZETIMIBE-SIMVASTATIN [facility] 2006 00:00:00 URSODIOL [facility] 2006 00[facility]00:00 METFORMIN HCL [facility] 2006 00:00:00 LEVOTHYROXINE SODIUM [facility] 2006-04-26 00:00:00 null [facility] 2006-04-26 00:00:00 null [facility] 2006-04-26 00:00:00 ACETAMINOPHEN-CODEINE TABS [facility] 2006-04-26 00:00:00 ACETAMINOPHEN-CODEINE TABS [facility] 2006-04-26 00:00:00 null [facility] 2006-04-26 00:00:00 null [facility] 2006-04-26 00:00:00 ACETAMINOPHEN-CODEINE TABS [facility] 2006-04-26 00:00:00 ACETAMINOPHEN-CODEINE TABS [facility] 2006-05-21 00:00:00 null [facility] 2006-05-21 00:00:00 null [facility] 2006-05-21 00:00:00 MORPHINE SULFATE [facility] 2006-05-21 00:00:00 MORPHINE SULFATE [facility] 2006-05-21 00:00:00 MORPHINE SULFATE [facility] 2006-05-21 00:00:00 null [facility] 2006-05-21 00:00:00 null [facility] 2006-05-21 00:00:00 MORPHINE SULFATE [facility] 2006-05-21 00:00:00 MORPHINE SULFATE [facility] 2006-05-24 00:00:00 null [facility] 2006-05-24 00:00:00 null [facility] 2006-05-24 00:00:00 OXYCODONE HCL [facility] 2006-05-24 00:00:00 OXYCODONE HCL [facility] 2006-05-24 00:00:00 OXYCODONE HCL [facility] 2006-05-24 00:00:00 null [facility] 2006-05-24 00:00:00 null [facility] 2006-05-24 00:00:00 OXYCODONE HCL [facility] 2006-05-24 00:00:00 OXYCODONE HCL [facility] 2006-12-09 00:00:00 null [facility] 2006-12-09 00:00:00 null [facility] 2006-12-09 00:00:00 METFORMIN HCL [facility] 2006-12-09 00:00:00 METFORMIN HCL [facility] 2006-12-09 00:00:00 METFORMIN HCL [facility] 2006-12-09 00:00:00 null [facility] 2006-12-09 00:00:00 null [facility] 2006-12-09 00:00:00 METFORMIN HCL [facility] 2006-12-09 00:00:00 METFORMIN HCL [facility] 2007-01-16 00:00:00 null [facility] 2007-01-16 00:00:00 null [facility] 2007-01-16 00:00:00 ROSUVASTATIN CALCIUM [facility] 2007-01-16 00:00:00 ROSUVASTATIN CALCIUM [facility] 2007-01-16 00:00:00 ROSUVASTATIN CALCIUM [facility] 2007-01-16 00:00:00 null [facility] 2007-01-16 00:00:00 null [facility] 2007-01-16 00:00:00 ROSUVASTATIN CALCIUM [facility] 2007-01-16 00:00:00 ROSUVASTATIN CALCIUM [facility] 2007-10-21 00:00:00 null [facility] 2007-10-21 00:00:00 null [facility] 2007-10-21 00:00:00 OXYCODONE HCL [facility] 2007-10-21 00:00:00 OXYCODONE HCL [facility] 2007-10-21 00:00:00 OXYCODONE HCL [facility] 2007-10-21 00:00:00 null [facility] 2007-10-21 00:00:00 null [facility] 2007-10-21 00:00:00 OXYCODONE HCL [facility] 2007-10-21 00:00:00 OXYCODONE HCL [facility] 2008-09-28 00:00:00 null [facility] 2008-09-28 00:00:00 null [facility] 2008-09-28 00:00:00 null [facility] 2008-09-28 00:00:00 null [facility] 2008-09-28 00:00:00 null [facility] 2008-09-28 00:00:00 null [facility] 2008-09-28 00:00:00 PREDNISONE [facility] 2008-09-28 00:00:00 AZITHROMYCIN [facility] 2008-09-28 00:00:00 CODEINE-GUAIFENESIN [facility] 2008-09-28 00:00:00 CODEINE-GUAIFENESIN [facility] 2008-09-28 00:00:00 PREDNISONE [facility] 2008-09-28 00:00:00 AZITHROMYCIN [facility] 2008-09-28 00:00:00 PREDNISONE [facility] 2008-09-28 00:00:00 AZITHROMYCIN [facility] 2008-09-28 00:00:00 AZITHROMYCIN [facility] 2008-09-28 00:00:00 CODEINE-GUAIFENESIN [facility] 2008-09-28 00:00:00 null [facility] 2008-09-28 00:00:00 null [facility] 2008-09-28 00:00:00 null [facility] 2008-09-28 00:00:00 null [facility] 2008-09-28 00:00:00 null [facility] 2008-09-28 00:00:00 null [facility] 2008-09-28 00:00:00 PREDNISONE [facility] 2008-09-28 00:00:00 AZITHROMYCIN [facility] 2008-09-28 00:00:00 CODEINE-GUAIFENESIN [facility] 2008-09-28 00:00:00 PREDNISONE [facility] 2008-09-28 00:00:00 AZITHROMYCIN [facility] 2008-09-28 00:00:00 CODEINE-GUAIFENESIN [facility] 2009-02-14 00:00:00 null [facility] 2009-02-14 00:00:00 null [facility] 2009-02-14 00:00:00 CHOLINE FENOFIBRATE [facility] 2009-02-14 00:00:00 CHOLINE FENOFIBRATE [facility] 2009-02-14 00:00:00 CHOLINE FENOFIBRATE [facility] 2009-02-14 00:00:00 null [facility] 2009-02-14 00:00:00 null [facility] 2009-02-14 00:00:00 CHOLINE FENOFIBRATE [facility] 2009-02-14 00:00:00 CHOLINE FENOFIBRATE [facility] 2009-08-12 00:00:00 null [facility] 2009-08-12 00:00:00 null [facility] 2009-08-12 00:00:00 null [facility] 2009-08-12 00:00:00 null [facility] 2009-08-12 00:00:00 METHYLPREDNISOLONE [facility] 2009-08-12 00:00:00 AZITHROMYCIN [facility] 2009-08-12 00:00:00 METHYLPREDNISOLONE [facility] 2009-08-12 00:00:00 AZITHROMYCIN [facility] 2009-08-12 00:00:00 AZITHROMYCIN [facility] 2009-08-12 00:00:00 AZITHROMYCIN [facility] 2009-08-12 00:00:00 METHYLPREDNISOLONE [facility] 2009-08-12 00:00:00 null [facility] 2009-08-12 00:00:00 null [facility] 2009-08-12 00:00:00 null [facility] 2009-08-12 00:00:00 null [facility] 2009-08-12 00:00:00 METHYLPREDNISOLONE [facility] 2009-08-12 00:00:00 AZITHROMYCIN [facility] 2009-08-12 00:00:00 AZITHROMYCIN [facility] 2009-08-12 00:00:00 METHYLPREDNISOLONE [facility] 2009-09-07 00:00:00 null [facility] 2009-09-07 00:00:00 null [facility] 2009-09-07 00:00:00 null [facility] 2009-09-07 00:00:00 null [facility] 2009-09-07 00:00:00 null [facility] 2009-09-07 00:00:00 null [facility] 2009-09-07 00:00:00 null [facility] 2009-09-07 00:00:00 null [facility] 2009-09-07 00:00:00 null [facility] 2009-09-07 00:00:00 METFORMIN HCL [facility] 2009-09-07 00:00:00 ASPIRIN [facility] 2009-09-07 00:00:00 ASPIRIN [facility] 2009-09-07 00:00:00 GLUCOSE BLOOD [facility] 2009-09-07 00:00:00 GLUCOSE BLOOD [facility] 2009-09-07 00:00:00 GLUCOSE BLOOD [facility] 2009-09-07 00:00:00 GLUCOSE BLOOD [facility] 2009-09-07 00:00:00 LANCETS [facility] 2009-09-07 00:00:00 LANCETS [facility] 2009-09-07 00:00:00 METFORMIN HCL [facility] 2009-09-07 00:00:00 ASPIRIN [facility] 2009-09-07 00:00:00 METFORMIN HCL [facility] 2009-09-07 00:00:00 null [facility] 2009-09-07 00:00:00 null [facility] 2009-09-07 00:00:00 null [facility] 2009-09-07 00:00:00 null [facility] 2009-09-07 00:00:00 null [facility] 2009-09-07 00:00:00 null [facility] 2009-09-07 00:00:00 null [facility] 2009-09-07 00:00:00 null [facility] 2009-09-07 00:00:00 null [facility] 2009-09-07 00:00:00 METFORMIN HCL [facility] 2009-09-07 00:00:00 ASPIRIN [facility] 2009-09-07 00:00:00 GLUCOSE BLOOD [facility] 2009-09-07 00:00:00 GLUCOSE BLOOD [facility] 2009-09-07 00:00:00 LANCETS [facility] 2009-09-07 00:00:00 ASPIRIN [facility] 2009-09-07 00:00:00 METFORMIN HCL [facility] 2010-01-31 00:00:00 null [facility] 2010-01-31 00:00:00 null [facility] 2010-01-31 00:00:00 METFORMIN HCL [facility] 2010-01-31 00:00:00 METFORMIN HCL [facility] 2010-01-31 00:00:00 METFORMIN HCL [facility] 2010-01-31 00:00:00 null [facility] 2010-01-31 00:00:00 null [facility] 2010-01-31 00:00:00 METFORMIN HCL [facility] 2010-01-31 00:00:00 METFORMIN HCL [facility] 2010-07-14 00:00:00 null [facility] 2010-07-14 00:00:00 null [facility] 2010-07-14 00:00:00 ROSUVASTATIN CALCIUM [facility] 2010-07-14 00:00:00 ROSUVASTATIN CALCIUM [facility] 2010-07-14 00:00:00 ROSUVASTATIN CALCIUM [facility] 2010-07-14 00:00:00 null [facility] 2010-07-14 00:00:00 null [facility] 2010-07-14 00:00:00 ROSUVASTATIN CALCIUM [facility] 2010-07-14 00:00:00 ROSUVASTATIN CALCIUM [facility] 2010-11-15 00:00:00 null [facility] 2010-11-15 00:00:00 null [facility] 2010-11-15 00:00:00 null [facility] 2010-11-15 00:00:00 null [facility] 2010-11-15 00:00:00 OXYCODONE-ACETAMINOPHEN [facility] 2010-11-15 00:00:00 OXYCODONE-ACETAMINOPHEN [facility] 2010-11-15 00:00:00 LIDOCAINE [facility] 2010-11-15 00:00:00 LIDOCAINE [facility] 2010-11-15 00:00:00 LIDOCAINE [facility] 2010-11-15 00:00:00 OXYCODONE-ACETAMINOPHEN [facility] 2010-11-15 00:00:00 null [facility] 2010-11-15 00:00:00 null [facility] 2010-11-15 00:00:00 null [facility] 2010-11-15 00:00:00 null [facility] 2010-11-15 00:00:00 OXYCODONE-ACETAMINOPHEN [facility] 2010-11-15 00:00:00 LIDOCAINE [facility] 2010-11-15 00:00:00 LIDOCAINE [facility] 2010-11-15 00:00:00 OXYCODONE-ACETAMINOPHEN [facility] 2010-11-29 00:00:00 null [facility] 2010-11-29 00:00:00 null [facility] 2010-11-29 00:00:00 null [facility] 2010-11-29 00:00:00 null [facility] 2010-11-29 00:00:00 null [facility] 2010-11-29 00:00:00 null [facility] 2010-11-29 00:00:00 DOXYCYCLINE HYCLATE [facility] 2010-11-29 00:00:00 PROMETHAZINE HCL [facility] 2010-11-29 00:00:00 CODEINE-GUAIFENESIN [facility] 2010-11-29 00:00:00 CODEINE-GUAIFENESIN [facility] 2010-11-29 00:00:00 PROMETHAZINE HCL [facility] 2010-11-29 00:00:00 DOXYCYCLINE HYCLATE [facility] 2010-11-29 00:00:00 DOXYCYCLINE HYCLATE [facility] 2010-11-29 00:00:00 PROMETHAZINE HCL [facility] 2010-11-29 00:00:00 CODEINE-GUAIFENESIN [facility] 2010-11-29 00:00:00 null [facility] 2010-11-29 00:00:00 null [facility] 2010-11-29 00:00:00 null [facility] 2010-11-29 00:00:00 null [facility] 2010-11-29 00:00:00 null [facility] 2010-11-29 00:00:00 null [facility] 2010-11-29 00:00:00 DOXYCYCLINE HYCLATE [facility] 2010-11-29 00:00:00 PROMETHAZINE HCL [facility] 2010-11-29 00:00:00 CODEINE-GUAIFENESIN [facility] 2010-11-29 00:00:00 DOXYCYCLINE HYCLATE [facility] 2010-11-29 00:00:00 PROMETHAZINE HCL [facility] 2010-11-29 00:00:00 CODEINE-GUAIFENESIN [facility] 2011-04-23 00:00:00 null [facility] 2011-04-23 00:00:00 null [facility] 2011-04-23 00:00:00 DIFLUNISAL [facility] 2011-04-23 00:00:00 DIFLUNISAL [facility] 2011-04-23 00:00:00 DIFLUNISAL [facility] 2011-04-23 00:00:00 null [facility] 2011-04-23 00:00:00 null [facility] 2011-04-23 00:00:00 DIFLUNISAL [facility] 2011-04-23 00:00:00 DIFLUNISAL [facility] 2011-06-25 00:00:00 null [facility] 2011-06-25 00:00:00 null [facility] 2011-06-25 00:00:00 LIDOCAINE [facility] 2011-06-25 00:00:00 LIDOCAINE [facility] 2011-06-25 00:00:00 LIDOCAINE [facility] 2011-06-25 00:00:00 null [facility] 2011-06-25 00:00:00 null [facility] 2011-06-25 00:00:00 LIDOCAINE [facility] 2011-06-25 00:00:00 LIDOCAINE [facility] 2011-09-27 00:00:00 null [facility] 2011-09-27 00:00:00 null [facility] 2011-09-27 00:00:00 OXYCODONE-ACETAMINOPHEN [facility] 2011-09-27 00:00:00 OXYCODONE-ACETAMINOPHEN [facility] 2011-09-27 00:00:00 OXYCODONE-ACETAMINOPHEN [facility] 2011-09-27 00:00:00 null [facility] 2011-09-27 00:00:00 null [facility] 2011-09-27 00:00:00 OXYCODONE-ACETAMINOPHEN [facility] 2011-09-27 00:00:00 OXYCODONE-ACETAMINOPHEN [facility] 2012-01-16 00:00:00 null [facility] 2012-01-16 00:00:00 null [facility] 2012-01-16 00:00:00 null [facility] 2012-01-16 00:00:00 null [facility] 2012-01-16 00:00:00 NYSTATIN-TRIAMCINOLONE [facility] 2012-01-16 00:00:00 SOLIFENACIN SUCCINATE [facility] 2012-01-16 00:00:00 SOLIFENACIN SUCCINATE [facility] 2012-01-16 00:00:00 NYSTATIN-TRIAMCINOLONE [facility] 2012-01-16 00:00:00 NYSTATIN-TRIAMCINOLONE [facility] 2012-01-16 00:00:00 SOLIFENACIN SUCCINATE [facility] 2012-01-16 00:00:00 null [facility] 2012-01-16 00[facility]00:00 null [facility] 2012-01-16 00:00:00 null [facility] 2012-01-16 00:00:00 null [facility] 2012-01-16 00:00:00 NYSTATIN-TRIAMCINOLONE [facility] 2012-01-16 00:00:00 SOLIFENACIN SUCCINATE [facility] 2012-01-16 00:00:00 NYSTATIN-TRIAMCINOLONE [facility] 2012-01-16 00:00:00 SOLIFENACIN SUCCINATE [facility] 2012-01-25 00:00:00 null [facility] 2012-01-25 00:00:00 null [facility] 2012-01-25 00:00:00 null [facility] 2012-01-25 00:00:00 null [facility] 2012-01-25 00:00:00 null [facility] 2012-01-25 00:00:00 null [facility] 2012-01-25 00:00:00 CHOLECALCIFEROL [facility] 2012-01-25 00:00:00 DICLOFENAC SODIUM [facility] 2012-01-25 00:00:00 [id number] [facility] 2012-01-25 00:00:00 DICLOFENAC SODIUM [facility] 2012-01-25 00:00:00 CHOLECALCIFEROL [facility] 2012-01-25 00:00:00 DICLOFENAC SODIUM [facility] 2012-01-25 00:00:00 null [facility] 2012-01-25 00:00:00 null [facility] 2012-01-25 00:00:00 null [facility] 2012-01-25 00:00:00 null [facility] 2012-01-25 00:00:00 null [facility] 2012-01-25 00:00:00 null [facility] 2012-01-25 00:00:00 null [facility] 2012-01-25 00:00:00 CHOLECALCIFEROL [facility] 2012-01-25 00:00:00 [id number] [facility] 2012-01-25 00:00:00 DICLOFENAC SODIUM [facility] 2012-01-25 00:00:00 CHOLECALCIFEROL [facility] 2012-01-25 00:00:00 DICLOFENAC SODIUM [facility] 2012-05-30 00:00:00 null [facility] 2012-05-30 00:00:00 null [facility] 2012-05-30 00:00:00 SITAGLIPTIN-METFORMIN HCL [facility] 2012-05-30 00:00:00 SITAGLIPTIN-METFORMIN HCL [facility] 2012-05-30 00:00:00 SITAGLIPTIN-METFORMIN HCL [facility] 2012-05-30 00:00:00 null [facility] 2012-05-30 00:00:00 null [facility] 2012-05-30 00:00:00 SITAGLIPTIN-METFORMIN HCL [facility] 2012-05-30 00:00:00 SITAGLIPTIN-METFORMIN HCL [facility] 2012-06-30 [facility]00[facility] 2012-[facility]-30 [facility]:00:00 [facility] 2012-06-30 00:00:00 [facility]INE [facility] 2012-06-30 00:00:00 null [facility] 2012-06-30 00:00:00 null [facility] 2012-06-30 00:00:00 [facility] [address] 2012-09-30 00:00:[facility] [address] 2012-09-30 00:00:[facility] [address] 2012-09-30 00:00:[facility] [address] 2012-09-30 00:00:00 N[facility]URANTOIN MONOHYD [facility] [address] 2012-09-30 00:00:00 NITROFURANTOIN MONOHYD MACRO [facility] [address] 2012-09-30 00:00:00 METOCLOPRAMIDE [facility]CL [facility] [address] 2012-09-30 00:00:00 METOCLOPRAMIDE HCL [facility] [address] 2012-09-30 00:00:00 N[facility]ANTOIN [facility]OHYD [facility] [address] 2012-09-30 [facility]:00:00 [facility] 2012-09-30 00:00:00 [facility] 2012-09-30 00:00:00 [facility] 2012-09-30 00:00:00 [facility] 2012-09-30 00:00:00 [facility] 2012-09-30 00:00:00 NITROFURANTOIN MONOHYD MACRO [facility] 2012-09-30 00:00:00 METOCLOPRAMIDE [facility]CL [facility] 2012-09-30 00:00:00 MET[facility]CLOPRAMIDE [facility]CL [facility] 2012-09-30 00:00:00 NITROFURANTOIN MONOHYD MACRO [facility] 2012-10-01 00:00:[facility] [address] 2012-10-01 00:00:00 null [facility] [address] 2012-10-01 00:00:00 ERGOCALCIFEROL [facility] [address] 2012-10-01 00:00:00 ER[facility]OCALCIFEROL [facility] [address] 2012-10-01 00:00:00 null [facility] 2012-10-01 00:00:00 null [facility] 2012-10-01 00:00:00 ERGOCALCIFEROL [facility] 2013-10-13 00:00:00 null [facility] 2013-10-13 00:00:00 null [facility] 2013-10-13 00:00:00 null [facility] 2013-10-13 00:00:00 null [facility] 2013-10-13 00:00:00 null [facility] 2013-10-13 00:00:00 null [facility] 2013-10-13 00:00:00 null [facility] 2013-10-13 00:00:00 null [facility] 2013-10-13 00:00:00 null [facility] 2013-10-13 00:00:00 null [facility] 2013-10-13 00:00:00 null [facility] 2013-10-13 00:00:00 null [facility] 2013-10-13 00:00:00 null [facility] 2013-10-13 00:00:00 null [facility] 2013-10-13 00:00:00 null [facility] 2013-10-13 00:00:00 null [facility] 2013-10-13 00:00:00 SITAGLIPTIN-METFORMIN HCL [facility] 2013-10-13 00:00:00 SITAGLIPTIN-METFORMIN HCL [facility] 2013-10-13 00:00:00 LEVOTHYROXINE SODIUM [facility] 2013-10-13 00:00:00 CHOLECALCIFEROL [facility] 2013-10-13 00:00:00 CHOLECALCIFEROL [facility] 2013-10-13 00:00:00 LIDOCAINE [facility] 2013-10-13 00:00:00 [id number] [facility] 2013-10-13 00:00:00 SOLIFENACIN SUCCINATE [facility] 2013-10-13 00:00:00 SOLIFENACIN SUCCINATE [facility] 2013-10-13 00:00:00 SOLIFENACIN SUCCINATE [facility] 2013-10-13 00:00:00 DICLOFENAC SODIUM [facility] 2013-10-13 00:00:00 DICLOFENAC SODIUM [facility] 2013-10-13 00:00:00 METOCLOPRAMIDE HCL [facility] 2013-10-13 00:00:00 DICLOFENAC SODIUM [facility] 2013-10-13 00:00:00 LIDOCAINE [facility] 2013-10-13 00:00:00 LIDOCAINE [facility] 2013-10-13 00:00:00 LIDOCAINE [facility] 2013-10-13 00:00:00 [facility] 2013-10-13 00:00:00 METOCLOPRAMIDE HCL [facility] 2013-10-13 00:00:00 [facility]CIN [facility] 2013-10-13 00:00:00 [facility]CALCIFEROL [facility] 2013-10-13 00:00:00 DICLOFENAC SODIUM [facility] 2013-10-13 00:00:00 LEVOTHYROXINE SODIUM [facility] 2013-10-13 00:00:00 null [facility] 2013-10-13 00:00:00 null [facility] 2013-10-13 00:00:00 null [facility] 2013-10-13 00:00:00 null [facility] 2013-10-13 00:00:00 null [facility] 2013-10-13 00:00:00 null [facility] 2013-10-13 00:00:00 null [facility] 2013-10-13 00:00:00 null [facility] 2013-10-13 00:00:00 null [facility] 2013-10-13 00:00:00 null [facility] 2013-10-13 00:00:00 null [facility] 2013-10-13 00:00:00 null [facility] 2013-10-13 00:00:00 null [facility] 2013-10-13 00:00:00 null [facility] 2013-10-13 00:00:00 null [facility] 2013-10-13 00:00:00 null [facility] 2013-10-13 00:00:00 null [facility] 2013-10-13 00:00:00 SITAGLIPTIN-METFORMIN [facility]CL [facility] 2013-10-13 00:00:00 LEVOTHYROXINE SODIUM [facility] 2013-10-13 00:00:00 CHOLECALCIFEROL [facility] 2013-10-13 00:00:00 [id number] [facility] 2013-10-13 00:00:00 SOLIFENACIN SUCCINATE [facility] 2013-10-13 00:00:00 METOCLOPRAMIDE HCL [facility] 2013-10-13 00:00:00 DICLOFENAC SODIUM [facility] 2013-10-13 00:00:00 LIDOCAINE [facility] 2013-10-13 00:00:00 LIDOCAINE [facility] 2013-10-13 00:00:00 [facility]IN[facility]MIN [facility] 2013-10-13 00:00:00 METOCLOPRAMIDE HCL [facility] 2013-10-13 00:00:00 SOLIFENACIN SUCCINATE [facility] 2013-10-13 00:00:00 [facility]IFEROL [facility] 2013-10-13 00:00:00 DICLOFENAC SODIUM [facility] 2013-10-13 00:00:00 LEVOTHYROXINE SODIUM [facility] 2013-11-12 00:00:00 null [facility] 2013-11-12 00:00:00 null [facility] 2013-11-12 00:00:00 OXYCODONE-ACETAMINOPHEN [facility] 2013-11-12 00:00:00 OXYCODONE-[facility]AMINOPHEN [facility] 2013-11-12 00:00:00 OXYCODONE-[facility]AMINOPHEN [facility] 2013-11-12 00:00:00 null [facility] 2013-11-12 00:00:00 null [facility] 2013-11-12 00:00:00 OXYCODONE-[facility]AMINOPHEN [facility] 2013-11-12 00:00:00 OXYCODONE-[facility]AMINOPHEN [facility] 2013-12-24 00:00:00 null [facility] 2013-12-24 00:00:00 null [facility] 2013-12-24 00:00:00 LEVOTHYROXINE SODIUM [facility] 2013-12-24 00:00:00 LEVOTHYROXINE SODIUM [facility] 2013-12-24 00:00:00 null [facility] 2013-12-24 00:00:00 null [facility] 2013-12-24 00:00:00 LEVOTHYROXINE SODIUM [facility] 2013-12-24 00:00:00 LEVOTHYROXINE SODIUM [facility] 2013-12-31 00:00:00 null [facility] 2013-12-31 00:00:00 null [facility] 2013-12-31 00:00:00 ROSUVASTATIN CALCIUM [facility] 2013-12-31 00:00:00 ROSUVASTATIN CALCIUM [facility] 2013-12-31 00:00:00 ROSUVASTATIN CALCIUM [facility] 2013-12-31 00:00:00 null [facility] 2013-12-31 00:00:00 null [facility] 2013-12-31 00:00:00 ROSUVASTATIN CALCIUM [facility] 2013-12-31 00:00:00 ROSUVASTATIN CALCIUM [facility] 2014-02-10 00:00:00 null [facility] 2014-02-10 00:00:00 null [facility] 2014-02-10 00:00:00 URSODIOL [facility] 2014-02-10 00:00:00 URSODIOL [facility] 2014-02-10 00:00:00 null [facility] 2014-02-10 00:00:00 null [facility] 2014-02-10 00:00:00 URSODIOL [facility] 2014-02-10 00:00:00 URSODIOL [facility] 2014-04-07 00:00:00 null [facility] 2014-04-07 00:00:00 null [facility] 2014-04-07 00:00:00 null [facility] 2014-04-07 00:00:00 null [facility] 2014-04-07 00:00:00 LEVOTHYROXINE SODIUM [facility] 2014-04-07 00:00:00 LEVOTHYROXINE SODIUM [facility] 2014-04-07 00:00:00 LEVOTHYROXINE SODIUM [facility] 2014-04-07 00:00:00 LEVOTHYROXINE SODIUM [facility] [address] 2014-04-07 00:00:00 LEVOTHYROXINE SODIUM [facility] 2014-04-07 00:00:00 LEVOTHYROXINE SODIUM [facility] 2014-04-07 00:00:00 null [facility] 2014-04-07 00:00:00 null [facility] 2014-04-07 00:00:00 null [facility] 2014-04-07 00:00:00 null [facility] 2014-04-07 00:00:00 LEVOTHYROXINE SODIUM [facility] 2014-04-07 00:00:00 LEVOTHYROXINE SODIUM [facility] 2014-04-07 00:00:00 LEVOTHYROXINE SODIUM [facility] 2014-04-07 00:00:00 LEVOTHYROXINE SODIUM [facility] 2014-07-20 00:00:00 null [facility] 2014-07-20 00:00:00 null [facility] 2014-07-20 00:00:00 BLOOD GLUCOSE MONITORING SUPPL [facility] 2014-07-20 00:00:00 null [facility] 2014-07-20 00:00:00 null [facility] 2014-07-20 00:00:00 BLOOD GLUCOSE MONITORING SUPPL [facility] 2014-11-03 00:00:00 null [facility] 2014-11-03 00:00:00 null [facility] 2014-11-03 00:00:00 null [facility] 2014-11-03 00:00:00 null [facility] 2014-11-03 00:00:00 null [facility] 2014-11-03 00:00:00 METOCLOPRAMIDE HCL [facility] 2014-11-03 00:00:00 LOPERAMIDE HCL [facility] 2014-11-03 00:00:00 METOCLOPRAMIDE HCL [facility] 2014-11-03 00:00:00 METOCLOPRAMIDE HCL [facility] 2014-11-03 00:00:00 METOCLOPRAMIDE HCL [facility] 2014-11-03 00:00:00 METOCLOPRAMIDE HCL [facility] 2014-11-03 00:00:00 METOCLOPRAMIDE HCL [facility] 2014-11-03 00:00:00 null [facility] 2014-11-03 00:00:00 null [facility] 2014-11-03 00:00:00 null [facility] 2014-11-03 00:00:00 null [facility] 2014-11-03 00:00:00 null [facility] 2014-11-03 00:00:00 METOCLOPRAMIDE HCL [facility] 2014-11-03 00:00:00 LOPERAMIDE HCL [facility] 2014-11-03 00:00:00 METOCLOPRAMIDE HCL [facility] 2014-11-03 00:00:00 METOCLOPRAMIDE HCL [facility] 2014-11-03 00:00:00 METOCLOPRAMIDE HCL [facility] 2015-01-18 00:00:00 null [facility] 2015-01-18 00:00:00 null [facility] 2015-01-18 00:00:00 OXYCODONE-[facility]AMINOPHEN [facility] 2015-01-18 00:00:00 OXYCODONE-[facility]AMINOPHEN [facility] [address] 2015-01-18 00:00:00 OXYCODONE-[facility]AMINOPHEN [facility] 2015-01-18 00:00:00 null [facility] 2015-01-18 00:00:00 null [facility] 2015-01-18 00:00:00 OXYCODONE-[facility]AMINOPHEN [facility] 2015-01-18 00:00:00 OXYCODONE-[facility]AMINOPHEN [facility] 2015-01-26 00:00:00 null [facility] 2015-01-26 00:00:00 null [facility] 2015-01-26 00:00:00 OXYCODONE-ACETAMINOPHEN [facility] 2015-01-26 00:00:00 OXYCODONE-ACETAMINOPHEN [facility] 2015-01-26 00:00:00 OXYCODONE-ACETAMINOPHEN [facility] 2015-01-26 00:00:00 null [facility] 2015-01-26 00:00:00 null [facility] 2015-01-26 00:00:00 OXYCODONE-ACETAMINOPHEN [facility] 2015-01-26 00:00:00 OXYCODONE-ACETAMINOPHEN [facility] 2015-05-05 00:00:00 null [facility] 2015-05-05 00:00:00 null [facility] 2015-05-05 00:00:00 TRAMADOL HCL [facility] 2015-05-05 00:00:00 TRAMADOL HCL [facility] 2015-05-05 00:00:00 TRAMADOL HCL [facility] 2015-05-05 00:00:00 null [facility] 2015-05-05 00:00:00 null [facility] 2015-05-05 00:00:00 TRAMADOL HCL [facility] 2015-05-05 00:00:00 TRAMADOL HCL [facility] 2015-09-23 00:00:00 null [facility] 2015-09-23 00:00:00 null [facility] 2015-09-23 00:00:00 null [facility] 2015-09-23 00:00:00 null [facility] 2015-09-23 00:00:00 DOXYCYCLINE HYCLATE [facility] 2015-09-23 00:00:00 BACITRACIN ZINC [facility] 2015-09-23 00:00:00 BACITRACIN ZINC [facility] 2015-09-23 00:00:00 DOXYCYCLINE HYCLATE [facility] [address] 2015-09-23 00:00:00 BACITRACIN ZINC [facility] 2015-09-23 00:00:00 DOXYCYCLINE HYCLATE [facility] 2015-09-23 00:00:00 null [facility] 2015-09-23 00:00:00 null [facility] 2015-09-23 00:00:00 null [facility] 2015-09-23 00:00:00 null [facility] 2015-09-23 00:00:00 DOXYCYCLINE HYCLATE [facility] 2015-09-23 00:00:00 BACITRACIN ZINC [facility] 2015-09-23 00:00:00 BACITRACIN ZINC [facility] 2015-09-23 00:00:00 DOXYCYCLINE HYCLATE [facility] 2016-03-01 00:00:00 null [facility] 2016-03-01 00:00:00 null [facility] 2016-03-01 00:00:00 null [facility] 2016-03-01 00:00:00 null [facility] 2016-09-06 00:00:00 null [facility] 2016-09-06 00:00:00 null [facility] 2016-09-06 00:00:00 null [facility] 2016-09-06 00:00:00 null [facility] 2016-09-06 00:00:00 null [facility] 2016-09-06 00:00:00 null [facility] 2016-09-06 00:00:00 FLUCONAZOLE [facility] 2016-09-06 00:00:00 NYSTATIN [facility] 2016-09-06 00:00:00 NYSTATIN [facility] 2016-09-06 00:00:00 FLUCONAZOLE [facility] 2016-09-06 00:00:00 HYDROCORTISONE ACETATE [facility] 2016-09-06 00:00:00 HYDROCORTISONE ACETATE [facility] 2016-09-06 00:00:00 HYDROCORTISONE ACETATE [facility] 2016-09-06 00:00:00 FLUCONAZOLE [facility] 2016-09-06 00:00:00 NYSTATIN [facility] 2016-09-06 00:00:00 null [facility] 2016-09-06 00:00:00 null [facility] 2016-09-06 00:00:00 null [facility] 2016-09-06 00:00:00 null [facility] 2016-09-06 00:00:00 null [facility] 2016-09-06 00:00:00 null [facility] 2016-09-06 00:00:00 FLUCONAZOLE [facility] 2016-09-06 00:00:00 NYSTATIN [facility] 2016-09-06 00:00:00 HYDROCORTISONE ACETATE [facility] 2016-09-06 00:00:00 HYDROCORTISONE ACETATE [facility] 2016-09-06 00:00:00 FLUCONAZOLE [facility] 2016-09-06 00:00:00 NYSTATIN [facility] 2017-03-11 00:00:00 null [facility] [address] [address] 2017-03-11 00:00:00 null [facility] 2017-03-11 00:00:00 null [facility] 2017-03-11 00:00:00 null [facility] 2017-03-11 00:00:00 EMPAGLIFLOZIN [facility] [address] 2017-03-11 00:00:00 EMPAGLIFLOZIN [facility] [address] 2017-03-11 00:00:00 EMPAGLIFLOZIN [facility] [address] 2017-03-11 00:00:00 EMPAGLIFLOZIN [facility] [address] [address] 2017-03-11 00:00:00 null [facility] 2017-03-11 00:00:00 null [facility] 2017-03-11 00:00:00 null [facility] 2017-03-11 00:00:00 null [facility] 2017-03-11 00:00:00 EMPAGLIFLOZIN [facility] 2017-03-11 00:00:00 EMPAGLIFLOZIN [facility] 2017-03-11 00:00:00 EMPAGLIFLOZIN [facility] 2017-03-11 00:00:00 EMPAGLIFLOZIN [facility] 2017-04-23 00:00:00 null [facility] [address] [address] 2017-04-23 00:00:00 null [facility] [address] [address] 2017-04-23 00:00:00 null [facility] 2017-04-23 00:00:00 null [facility] [address] [address] 2017-04-23 00:00:00 GABAPENTIN [facility] 2017-04-23 00:00:00 MELOXICAM [facility] 2017-04-23 00:00:00 MELOXICAM [facility] 2017-04-23 00:00:00 GABAPENTIN [facility] 2017-04-23 00:00:00 null [facility] 2017-04-23 00:00:00 null [facility] 2017-04-23 00:00:00 null [facility] 2017-04-23 00:00:00 null [facility] 2017-04-23 00:00:00 GABAPENTIN [facility] 2017-04-23 00:00:00 MELOXICAM [facility] 2017-04-23 00:00:00 MELOXICAM [facility] 2017-04-23 00:00:00 GABAPENTIN [facility] 2017-08-08 00:00:00 null [facility] [address] 2017-08-08 00:00:00 null [facility] 2017-08-08 00:00:00 EMPAGLIFLOZIN [facility] 2017-08-08 00:00:00 EMPAGLIFLOZIN [facility] 2017-08-08 00:00:00 null [facility] 2017-08-08 00:00:00 null [facility] 2017-08-08 00:00:00 EMPAGLIFLOZIN [facility] 2017-08-08 00:00:00 EMPAGLIFLOZIN [facility] 2017-10-25 00:00:00 null [facility] 2017-10-25 00:00:00 null [facility] 2017-10-25 00:00:00 LEVOTHYROXINE SODIUM [facility] 2017-10-25 00:00:00 LEVOTHYROXINE SODIUM [facility] 2017-10-25 00:00:00 null [facility] 2017-10-25 00:00:00 null [facility] 2017-10-25 00:00:00 LEVOTHYROXINE SODIUM [facility] 2017-10-25 00:00:00 LEVOTHYROXINE SODIUM [facility] 2017-11-01 00:00:00 null [facility] 2017-11-01 00:00:00 null [facility] 2017-11-01 00:00:00 SITAGLIPTIN-METFORMIN HCL [facility] 2017-11-01 00:00:00 SITAGLIPTIN-METFORMIN HCL [facility] 2017-11-01 00:00:00 null [facility] 2017-11-01 00:00:00 null [facility] 2017-11-01 00:00:00 null [facility] 2017-11-01 00:00:00 null [facility] 2017-11-01 00:00:00 SITAGLIPTIN-METFORMIN HCL [facility] 2017-11-01 00:00:00 SITAGLIPTIN-METFORMIN HCL [facility] 2017-11-01 00:00:00 SITAGLIPTIN-METFORMIN HCL [facility] 2017-11-01 00:00:00 SITAGLIPTIN-METFORMIN HCL [facility] 2018-11-13 00:00:00 null [facility] 2018-11-13 00:00:00 null [facility] 2018-11-13 00:00:00 null [facility] 2018-11-13 00:00:00 OXYCODONE[facility]HEN [facility] 2018-11-13 00[facility]00:00 null [facility] 2018-11-13 00:00:00 OXYCOD[facility]EN [facility] 2018-11-16 00:00:00 null [facility] 2018-11-16 00[facility]00:00 null [facility] 2018-11-16 00:00:00 null [facility] 2018-11-16 00:00:00 null [facility] 2018-11-16 00:00:00 LEVOTHYROXINE SODIUM [facility] 2018-11-16 00:00:00 MELOXICAM [facility] 2018-11-16 00:00:00 MELOXICAM [facility] 2018-11-16 00:00:00 LEVOTHYROXINE SODIUM [facility] 2019-01-20 00:00:00 null [facility] 2019-01-20 00:00:00 null [facility] 2019-01-20 00:00:00 LOPERAMIDE HCL [facility] 2019-01-20 00:00:00 LOPERAMIDE HCL [facility] 2019-02-12 00:00:00 null [facility] 2019-02-12 00:00:00 null [facility] 2019-05-08 00:00:00 null [facility] 2019-05-08 00:00:00 null [facility] 2019-05-08 00:00:00 null [facility] 2019-05-08 00:00:00 NITROFURANTOIN MONOHYD MACRO [facility] 2019-05-08 00:00:00 [facility]ANTOIN [facility] [facility] 2019-08-30 00:00:00 null [facility] 2019-08-30 00:00:00 null [facility] 2019-08-30 00:00:00 EMPAGLIFLOZIN [facility] 2019-08-30 00:00:00 EMPAGLIFLOZIN [facility] 2020-02-18 00:00:00 null [facility] 2020-02-18 00:00:00 null [facility] 2020-02-18 00:00:00 null [facility] 2020-02-18 00:00:00 null [facility] 2020-02-18 00:00:00 null [facility] 2020-02-18 00:00:00 null [facility] 2020-02-18 00:00:00 METRONIDAZOLE [facility] 2020-02-18 00:00:00 CIPROFLOXACIN HCL [facility] 2020-02-18 00:00:00 OMEPRAZOLE [facility] 2020-02-18 00:00:00 OMEPRAZOLE [facility] 2020-02-18 00:00:00 METRONIDAZOLE [facility] 2020-02-18 00:00:00 CIPROFLOXACIN HCL [facility] 2020-02-23 00:00:00 null [facility] 2020-02-23 00:00:00 null [facility] 2020-02-23 00:00:00 LIDOCAINE [facility] 2020-02-23 00:00:00 LIDOCAINE [facility] 2020-03-17 00:00:00 null [facility] 2020-03-17 00:00:00 null [facility] 2020-03-23 00:00:00 null [facility] 2020-03-23 00:00:00 null [facility] 2020-03-23 00:00:00 VALACYCLOVIR HCL [facility] 2020-03-23 00:00:00 VALACYCLOVIR HCL [facility] 2020-04-07 00:00:00 null [facility] 2020-04-07 00:00:00 null [facility] 2020-04-07 00:00:00 NA SULFATE-K SULFATE-MG SULF [facility] 2020-04-07 00:00:00 NA SULFATE-K SULFATE-MG SULF [facility] 2020-04-13 00:00:00 null [facility] 2020-04-13 00:00:00 null [facility] 2020-04-13 00:00:00 TERCONAZOLE [facility] 2020-04-13 00:00:00 TERCONAZOLE [facility] Procedures date description facility 2013-07-14 00:00:00 Microalbumin [facility] [address] date description facility 2013-07-14 00:00:00 [facility] [address] date description facility 2013-07-14 00:00:00 Microalbumin [facility] date description facility 2013-07-14 00:00:00 [facility] date description facility 2013-08-17 00:00:00 CMP [facility] [address] date description facility 2013-08-17 00:00:00 LIPIDS [facility] [address] date description facility 2013-08-17 00:00:00 TSH [facility] [address] date description facility 2013-08-17 00:00:00 CBC [facility] date description facility 2013-08-17 00:00:00 [facility] [address] date description facility 2013-08-17 00:00:00 CMP [facility] date description facility 2013-08-17 00:00:00 LIPIDS [facility] date description facility 2013-08-17 00:00:00 TSH [facility] date description facility 2013-08-17 00:00:00 CBC [facility] date description facility 2013-08-17 00:00:00 [facility] date description facility 2013-09-07 00:00:00 HGBA1C [facility] [address] date description facility 2013-09-07 00:00:00 [facility] [address] date description facility 2013-09-07 00:00:00 HGBA1C [facility] date description facility 2013-09-07 00:00:00 [facility] date description facility 2013-11-12 00:00:00 Physical Therapy [facility] [address] date description facility 2013-11-12 00:00:00 [facility] [address] date description facility 2013-11-12 00:00:00 Physical Therapy [facility] date description facility 2013-11-12 00:00:00 [facility] date description facility 2013-12-14 00:00:00 CMP [facility] [address] date description facility 2013-12-14 00:00:00 LIPIDS [facility] [address] date description facility 2013-12-14 00:00:00 HGBA1C [facility] [address] date description facility 2013-12-14 00:00:00 TSH [facility] [address] date description facility 2013-12-14 00:00:00 [facility] date description facility 2013-12-14 00:00:00 CMP [facility] date description facility 2013-12-14 00:00:00 LIPIDS [facility] date description facility 2013-12-14 00:00:00 HGBA1C [facility] date description facility 2013-12-14 00:00:00 TSH [facility] date description facility 2013-12-14 00:00:00 [facility] date description facility 2014-03-15 00:00:00 CMP [facility] [address] date description facility 2014-03-15 00:00:00 LIPIDS [facility] date description facility 2014-03-15 00:00:00 HGBA1C [facility] date description facility 2014-03-15 00:00:00 TSH [facility] date description facility 2014-03-15 00:00:00 [facility] [address] date description facility 2014-03-15 00:00:00 CMP [facility] date description facility 2014-03-15 00:00:00 LIPIDS [facility] date description facility 2014-03-15 00:00:00 HGBA1C [facility] date description facility 2014-03-15 00:00:00 TSH [facility] date description facility 2014-03-15 00:00:00 [facility] date description facility 2014-03-22 00:00:00 Physical Therapy [facility] [address] date description facility 2014-03-22 00:00:00 [facility] [address] date description facility 2014-03-22 00:00:00 Physical Therapy [facility] date description facility 2014-03-22 00:00:00 [facility] date description facility 2014-06-28 00:00:00 CMP [facility] [address] date description facility 2014-06-28 00:00:00 LIPIDS [facility] [address] date description facility 2014-06-28 00:00:00 HGBA1C [facility] [address] date description facility 2014-06-28 00:00:00 TSH [facility] [address] date description facility 2014-06-28 00:00:00 CBCDP [facility] [address] date description facility 2014-06-28 00:00:00 [facility] [address] date description facility 2014-06-28 00:00:00 CMP [facility] date description facility 2014-06-28 00:00:00 LIPIDS [facility] date description facility 2014-06-28 00:00:00 HGBA1C [facility] date description facility 2014-06-28 00:00:00 TSH [facility] date description facility 2014-06-28 00:00:00 CBCDP [facility] date description facility 2014-06-28 00:00:00 [facility] date description facility 2014-07-05 00:00:00 CMP [facility] [address] date description facility 2014-07-05 00:00:00 LIPIDS [facility] [address] date description facility 2014-07-05 00:00:00 HGBA1C [facility] [address] date description facility 2014-07-05 00:00:00 CBCDP [facility] [address] date description facility 2014-07-05 00:00:00 [facility] [address] date description facility 2014-07-05 00:00:00 CMP [facility] date description facility 2014-07-05 00:00:00 LIPIDS [facility] date description facility 2014-07-05 00:00:00 HGBA1C [facility] date description facility 2014-07-05 00:00:00 CBCDP [facility] date description facility 2014-07-05 00:00:00 [facility] date description facility 2014-09-28 00:00:00 CMP [facility] [address] date description facility 2014-09-28 00:00:00 HGBA1C [facility] [address] date description facility 2014-09-28 00:00:00 [facility] [address] date description facility 2014-09-28 00:00:00 CMP [facility] date description facility 2014-09-28 00:00:00 HGBA1C [facility] date description facility 2014-09-28 00:00:00 [facility] date description facility 2014-12-08 00:00:00 CMP [facility] [address] date description facility 2014-12-08 00:00:00 CBCDP [facility] [address] date description facility 2014-12-08 00:00:00 [facility] [address] date description facility 2014-12-08 00:00:00 CMP [facility] date description facility 2014-12-08 00:00:00 CBCDP [facility] date description facility 2014-12-08 00:00:00 [facility] date description facility 2015-03-31 00:00:00 Major Joint Injection [facility] [address] date description facility 2015-03-31 00:00:00 Shoulder 2V; Ex/Int [facility] [address] date description facility 2015-03-31 00:00:00 Depo-Medrol [facility] [address] date description facility 2015-03-31 00:00:00 [facility] [address] date description facility 2015-03-31 00:00:00 Major Joint Injection [facility] date description facility 2015-03-31 00:00:00 Shoulder 2V; Ex/Int [facility] date description facility 2015-03-31 00:00:00 Depo-Medrol [facility] date description facility 2015-03-31 00:00:00 [facility] date description facility 2015-05-05 00:00:00 Major Joint Injection [facility] [address] [address] date description facility 2015-05-05 00:00:00 Depo-Medrol [facility] [address] [address] date description facility 2015-05-05 00:00:00 [facility] [address] [address] date description facility 2015-05-05 00:00:00 Major Joint Injection [facility] date description facility 2015-05-05 00:00:00 Depo-Medrol [facility] date description facility 2015-05-05 00:00:00 [facility] date description facility 2015-06-07 00:00:00 Physical Therapy [facility] [address] date description facility 2015-06-07 00:00:00 [facility] [address] date description facility 2015-06-07 00:00:00 Physical Therapy [facility] date description facility 2015-06-07 00:00:00 [facility] date description facility 2016-01-17 00:00:00 APF forms [facility] [address] [address] date description facility 2016-01-17 00:00:00 [facility] [address] date description facility 2016-01-17 00:00:00 APF forms [facility] date description facility 2016-01-17 00:00:00 [facility] date description facility 2016-03-01 00:00:00 L&I Review of Job Analysis 2-[address] [facility] [address] date description facility 2016-03-01 00:00:00 APF forms [facility] [address] date description facility 2016-03-01 00:00:00 Ix admin via ID IM or jet [facility] with counseling by [facility] [address] [facility] date description facility 2016-03-01 00:00:00 Fluarix Quadrivalent [facility] Intramuscular Suspension 0.5 ML Albert emanuel date description facility 2016-03-01 00:00:[address] [facility] [address] [address] date description facility 2016-03-01 00:00:00 L&I Review of Job Analysis 2-5 [facility] date description facility 2016-03-01 00:00:00 APF forms [facility] date description facility 2016-03-01 00:00:00 Ix admin via ID IM or jet [facility] date description facility 2016-03-01 00:00:00 Fluarix Quadrivalent [facility] Intramuscular Suspension 0.5 [facility] date description facility 2016-03-01 00:00:00 [facility] date description facility 2016-09-06 00:00:00 TSH w/reflex to FT4, if [facility] [address] [address] date description facility 2016-09-06 00:00:00 CMP [facility] [address] [address] date description facility 2016-09-06 00:00:00 LIPIDS [facility] [address] [address] date description facility 2016-09-06 00:00:00 Microalbumin [facility] [address] [address] date description facility 2016-09-06 00:00:00 HGBA1C [facility] [address] [address] date description facility 2016-09-06 00:00:00 CBCDP [facility] [address] [address] date description facility 2016-09-06 00:00:00 [facility] [address] [address] date description facility 2016-09-06 00:00:00 TSH w/reflex to FT4, if [facility] date description facility 2016-09-06 00:00:00 CMP [facility] date description facility 2016-09-06 00:00:00 LIPIDS [facility] date description facility 2016-09-06 00:00:00 Microalbumin [facility] date description facility 2016-09-06 00:00:00 HGBA1C [facility] date description facility 2016-09-06 00:00:00 CBCDP [facility] date description facility 2016-09-06 00:00:00 [facility] date description facility 2016-12-10 00:00:00 CMP [facility] [address] [address] date description facility 2016-12-10 00:00:00 [facility] [address] [address] date description facility 2016-12-10 00:00:00 CMP [facility] date description facility 2016-12-10 00:00:00 [facility] date description facility 2017-01-14 00:00:00 CMP [facility] [address] [address] date description facility 2017-01-14 00:00:00 [facility] [address] [address] date description facility 2017-01-14 00:00:00 CMP [facility] date description facility 2017-01-14 00:00:00 [facility] date description facility 2017-01-28 00:00:00 CMP [facility] [address] [address] date description facility 2017-01-28 00:00:00 LIPIDS [facility] [address] [address] date description facility 2017-01-28 00:00:00 HGBA1C [facility] [address] [address] date description facility 2017-01-28 00:00:00 CBC W/Diff/Plt [facility] [address] [address] date description facility 2017-01-28 00:00:00 [facility] [address] [address] date description facility 2017-01-28 00:00:00 CMP [facility] date description facility 2017-01-28 00:00:00 LIPIDS [facility] date description facility 2017-01-28 00:00:00 HGBA1C [facility] date description facility 2017-01-28 00:00:00 CBC W/Diff/Plt [facility] date description facility 2017-01-28 00:00:00 [facility] date description facility 2017-06-11 00:00:00 CMP [facility] [address] [address] date description facility 2017-06-11 00:00:00 Lipid Panel [facility] [address] [address] date description facility 2017-06-11 00:00:00 HGBA1C [facility] [address] [address] date description facility 2017-06-11 00:00:00 [facility] [address] date description facility 2017-06-11 00:00:00 CMP [facility] date description facility 2017-06-11 00:00:00 Lipid Panel [facility] date description facility 2017-06-11 00:00:00 HGBA1C [facility] date description facility 2017-06-11 00:00:00 [facility] date description facility 2018-03-05 00:00:00 COMPREHENSIVE METABOLIC PANEL [facility] [address] [address] date description facility 2018-03-05 00:00:00 LIPID SCREEN, FASTING [facility] [address] [address] date description facility 2018-03-05 00:00:00 MICROALBUMIN-RANDOM URINE [facility] [address] [address] date description facility 2018-03-05 00:00:00 HGBA1C [facility] [address] [address] date description facility 2018-03-05 00:00:00 TSH [facility] [address] date description facility 2018-03-05 00:00:00 CBC W/Diff/Plt [facility] [address] [address] date description facility 2018-03-05 00:00:00 [facility] [address] [address] date description facility 2018-03-05 00:00:00 COMPREHENSIVE METABOLIC PANEL [facility] date description facility 2018-03-05 00:00:00 LIPID SCREEN, FASTING [facility] date description facility 2018-03-05 00:00:00 MICROALBUMIN-RANDOM URINE [facility] date description facility 2018-03-05 00:00:00 HGBA1C [facility] date description facility 2018-03-05 00:00:00 TSH [facility] date description facility 2018-03-05 00:00:00 CBC W/Diff/Plt [facility] date description facility 2018-03-05 00:00:00 [facility] date description facility 2018-06-02 00:00:00 COMPREHENSIVE METABOLIC PANEL [facility] date description facility 2018-06-02 00:00:00 LIPID SCREEN, FASTING [facility] date description facility 2018-06-02 00:00:00 HGBA1C [facility] date description facility 2018-06-02 00:00:00 TSH [facility] date description facility 2018-06-02 00:00:00 [facility] date description facility 2018-11-13 00:00:00 [facility] 2018-11-13 00:00:00 [id number] [facility] date description facility 2018-11-13 00:00:00 [facility] date description facility 2019-02-12 00:00:00 Influenza-Medicare [facility] date description facility 2019-02-12 00:00:00 First Vx - [facility] date description facility 2019-02-12 00:00[facility]00 [facility] date description facility 2019-02-13 00:00:00 COMPREHENSIVE METABOLIC PANEL [facility] date description facility 2019-02-13 00:00:00 LIPID SCREEN, FASTING [facility] date description facility 2019-02-13 00:00:00 HGBA1C [facility] date description facility 2019-02-13 00:00:00 [facility] date description facility 2019-05-08 00:00:00 Urine C&S [facility] date description facility 2019-05-08 00:00:00 Dip UA [facility] date description facility 2019-05-08 00:00:00 [facility] date description facility 2019-05-17 00:00:00 BMP [facility] date description facility 2019-05-17 00:00:00 HGBA1C [facility] date description facility 2019-05-17 00:00:00 [facility] date description facility 2019-08-28 00:00:00 MICROALBUMIN/[facility]AT [facility] date description facility 2019-08-28 00:00:00 Basic Metabolic Panel (BMP) [facility] date description facility 2019-08-28 00:00:00 HGBA1C [facility] date description facility 2019-08-28 00:00:00 [facility] date description facility 2019-12-08 00:00:00 COMPREHENSIVE METABOLIC PANEL [facility] date description facility 2019-12-08 00:00:00 LIPID SCREEN, FASTING [facility] date description facility 2019-12-08 00:00:00 HGBA1C [facility] date description facility 2019-12-08 00:00:00 [facility] date description facility 2020-02-23 00:00:00 Iron & TIBC [facility] date description facility 2020-02-23 00:00:00 Ferritin [facility] date description facility 2020-02-23 00:00:00 CBC W/Diff/Plt [facility] date description facility 2020-02-23 00:00:00 [facility] date description facility 2020-03-17 00:00:00 First Vx [facility] date description [facility] 2020-03-17 00:00:00 Pneumovax 23 Injection [facility] Injectable 25 MCG/0.5ML [facility] date description facility 2020-03-17 00:00:00 [facility] date description facility 2020-04-07 00:00:00 CBC W/Diff/Plt [facility] date description facility 2020-04-07 00:00:00 [facility] Results Social History date description facility 2013-02-11 00:00:00 Former smoker [facility] [address] date description facility 2013-07-30 00:00:00 Former smoker [facility] [address] date description facility 2013-08-17 00:00:00 Former smoker [facility] [address] date description facility 2013-09-22 00:00:00 Former smoker [facility] [address] date description facility 2013-11-12 00:00:00 Former smoker [facility] [address] date description facility 2013-12-24 00:00:00 Former smoker [facility] [address] date description facility 2014-02-01 00:00:00 Former smoker [facility] date description facility 2014-02-11 00:00:00 Former smoker [facility] [address] date description facility 2014-05-03 00:00:00 Former smoker [facility] date description facility 2014-07-21 00:00:00 Former smoker [facility] date description facility 2014-07-28 00:00:00 Former smoker [facility] date description facility 2014-08-20 00:00:00 Former smoker [facility] date description facility 2014-10-12 00:00:00 Former smoker [facility] [address] date description facility 2014-10-26 00:00:00 Former smoker [facility] [address] date description facility 2014-11-03 00:00:00 Former smoker [facility] [address] date description facility 2014-12-08 00:00:00 Former smoker [facility] [address] date description facility 2014-12-28 00:00:00 Former smoker [facility] date description facility 2015-07-21 00:00:00 Former smoker [facility] [address] date description facility 2015-09-23 00:00:00 Former smoker [facility] date description facility 2015-10-14 00:00:00 Former smoker [facility] date description facility 2015-12-22 00:00:00 Former smoker [facility] date description facility 2016-01-17 00:00:00 Former smoker [facility] date description facility 2016-03-01 00:00:00 Former smoker [facility] date description facility 2016-09-06 00:00:00 Former smoker [facility] [address] date description facility 2016-11-19 00:00:00 Former smoker [facility] [address] date description facility 2017-03-11 00:00:00 Former smoker [facility] date description facility 2017-04-23 00:00:00 Former smoker [facility] date description facility 2018-03-24 00:00:00 Former smoker [facility] [address] date description facility 2019-02-12 00:00:00 Former smoker [facility] date description facility 2019-05-08 00:00:00 Former smoker [facility] date description facility 2019-06-05 00:00:00 Former smoker [facility] date description facility 2019-09-07 00:00:00 Former smoker [facility] date description facility 2020-03-17 00:00:00 Former smoker [facility] date description facility 2020-04-07 00:00:00 Former smoker [facility] date description facility 2020-04-13 00:00:00 Former smoker [facility] Social History date description facility 2013-02-11 00:00:00 Former smoker [facility] [address] date description facility 2013-07-30 00:00:00 Former smoker [facility] [address] date description facility 2013-08-17 00:00:00 Former smoker [facility] [address] date description facility 2013-09-22 00:00:00 Former smoker [facility] [address] date description facility 2013-11-12 00:00:00 Former smoker [facility] [address] date description facility 2013-12-24 00:00:00 Former smoker [facility] [address] date description facility 2014-02-01 00:00:00 Former smoker [facility] date description facility 2014-02-11 00:00:00 Former smoker [facility] [address] date description facility 2014-05-03 00:00:00 Former smoker [facility] date description facility 2014-07-21 00:00:00 Former smoker [facility] date description facility 2014-07-28 00:00:00 Former smoker [facility] date description facility 2014-08-20 00:00:00 Former smoker [facility] date description facility 2014-10-12 00:00:00 Former smoker [facility] [address] date description facility 2014-10-26 00:00:00 Former smoker [facility] [address] date description facility 2014-11-03 00:00:00 Former smoker [facility] [address] date description facility 2014-12-08 00:00:00 Former smoker [facility] [address] date description facility 2014-12-28 00:00:00 Former smoker [facility] date description facility 2015-07-21 00:00:00 Former smoker [facility] [address] date description facility 2015-09-23 00:00:00 Former smoker [facility] date description facility 2015-10-14 00:00:00 Former smoker [facility] date description facility 2015-12-22 00:00:00 Former smoker [facility] date description facility 2016-01-17 00:00:00 Former smoker [facility] date description facility 2016-03-01 00:00:00 Former smoker [facility] date description facility 2016-09-06 00:00:00 Former smoker [facility] [address] date description facility 2016-11-19 00:00:00 Former smoker [facility] [address] date description facility 2017-03-11 00:00:00 Former smoker [facility] date description facility 2017-04-23 00:00:00 Former smoker [facility] date description facility 2018-03-24 00:00:00 Former smoker [facility] [address] [address] date description facility 2019-02-12 00:00:00 Former smoker [facility] date description facility 2019-05-08 00:00:00 Former smoker [facility] date description facility 2019-06-05 00:00:00 Former smoker [facility] date description facility 2019-09-07 00:00:00 Former smoker [facility] date description facility 2020-03-17 00:00:00 Former smoker [facility] date description facility 2020-04-07 00:00:00 Former smoker [facility] date description facility 2020-04-13 00:00:00 Former smoker [facility] date description facility [id number]
== END 2020-04-14 23:59 | disposition home or self-care (01) ==
LOC: COV 09:45
PROVIDERS: ATTEND Internal Medicine Gastroenterology
DX: Z01.818 Encounter for other preprocedural examination (principal); K92.2 Gastrointestinal hemorrhage, unspecified; Z12.11 Encounter for screening for malignant neoplasm of colon; Z20.828 Contact with and (suspected) exposure to other viral communicable diseases

== ENCOUNTER 2020-04-18 07:13 | Day surgery (SDC) | payer MEDICARE, OTHER ==
[2020-04-18] MEDS ORDERED: LACTATED RINGERS 1,000 ML IV ONE (07:43)
[2020-04-18] MEDS ORDERED: LIDO GARGLE 30 ML BOTTLE ONE (08:29)
[2020-04-18] MEDS ORDERED: MIDAZOLAM 2 MG/2 ML VIAL ONE ×2 (08:30→09:23)
[2020-04-18] MEDS ORDERED: fentaNYL 250 MCG/5 ML VIAL ONE (08:30)
[2020-04-18] MEDS ORDERED: LIDO GARGLE 30 ML BOTTLE PO ONE ×2 (08:36)
[2020-04-18] MEDS ORDERED: BENZOCAINE/TETRACAINE/BUTAMBEN 20 GM TOP ONE (08:37)
[2020-04-18] MEDS ORDERED: LACTATED RINGERS 100 ML IV ONE (09:47)
[2020-04-18 10:23] VITALS: BP 130/81
== END 2020-04-18 07:14 | disposition home or self-care (01) ==
LOC: SDS 07:13
PROVIDERS: ATTEND Internal Medicine Gastroenterology
PROC: 0DB78ZX Excision of Stomach, Pylorus, Via Natural or Artificial Opening Endoscopic, Diagnostic (ICD-10-PCS; 2020-04-18)
PROC: 0DBN8ZZ Excision of Sigmoid Colon, Via Natural or Artificial Opening Endoscopic (ICD-10-PCS; principal; 2020-04-18 08:15)
PROC: 0DB98ZX Excision of Duodenum, Via Natural or Artificial Opening Endoscopic, Diagnostic (ICD-10-PCS; 2020-04-18 08:15)
DX: Z12.11 Encounter for screening for malignant neoplasm of colon (principal); I85.01 Esophageal varices with bleeding; D12.5 Benign neoplasm of sigmoid colon; K57.30 Diverticulosis of large intestine without perforation or abscess without bleeding; K29.50 Unspecified chronic gastritis without bleeding; K26.9 Duodenal ulcer, unspecified as acute or chronic, without hemorrhage or perforation; I86.8 Varicose veins of other specified sites; E11.9 Type 2 diabetes mellitus without complications; K74.3 Primary biliary cirrhosis; E03.9 Hypothyroidism, unspecified; E78.5 Hyperlipidemia, unspecified; Z85.42 Personal history of malignant neoplasm of other parts of uterus; Z92.3 Personal history of irradiation; Z92.21 Personal history of antineoplastic chemotherapy; Z87.891 Personal history of nicotine dependence; Z79.84 Long term (current) use of oral hypoglycemic drugs
CPT/HCPCS: 43239; 45380; A9270; J3010; J7120

== ENCOUNTER 2020-06-10 07:00 | Outpatient (CLI) | payer MEDICARE, OTHER ==
[2020-06-10 19:38] LABS: ALBUMIN 3.9 g/dL (3.2-5.5); ALBUMIN/GLOBULIN RATIO 1.1 (1.0-2.2); ALKALINE PHOSPHATASE 205 IU/L (42-121); ALT ALANINE AMINOTRANSFERASE 63 IU/L (10-60); AST ASPARTATE AMINOTRANSFERASE 72 IU/L (10-42); BILIRUBIN,TOTAL 0.8 mg/dL (0.2-1.0); BUN - BLOOD UREA NITROGEN 11 mg/dL (6-20); CALCIUM 9.3 mg/dL (8.5-10.3); CARBON DIOXIDE - CO2 23 mmol/L (21-32); CHLORIDE 101 mmol/L (101-111); CHOL/HDL RATIO 4.8 (<4.4); CHOLESTEROL 321 mg/dL; CREATININE 0.4 mg/dL (0.4-1.0); GLUCOSE 142 mg/dL (70-100); HDL CHOLESTEROL 67 mg/dL; LDL CHOLESTEROL,CALCULATED 192 mg/dL; LDL/HDL RATIO 2.9 (<4.4); TOTAL PROTEIN 7.5 g/dL (6.7-8.2); VLDL CHOLESTEROL 62 mg/dL
[2020-06-10 20:12] LABS: HEMOGLOBIN A1c% 9.6 % (4.27-6.07)
[2020-06-10 21:05] LABS: CREATININE,URINE 44.4 mg/dL; MICROALBUM/CREATININE RATIO,UR 65.3 ug/mg (<30.0); MICROALBUMIN,URINE 2.9 mg/dL (0-300.0)
== END 2020-06-10 23:59 | disposition home or self-care (01) ==
LOC: LAB.WCP 07:00
PROVIDERS: ATTEND Physician Assistant Medical
DX: E11.9 Type 2 diabetes mellitus without complications (principal)
CPT/HCPCS: 36415; 80053; 80061; 82043; 82570; 83036; 83721; 84443

== ENCOUNTER 2020-09-12 08:00 | Outpatient (CLI) | payer MEDICARE, OTHER ==
[2020-09-12 12:33] LABS: ALBUMIN/GLOBULIN RATIO 1.1 (1.0-2.2); ALKALINE PHOSPHATASE 219 IU/L (42-121); ALT ALANINE AMINOTRANSFERASE 47 IU/L (10-60); AST ASPARTATE AMINOTRANSFERASE 56 IU/L (10-42); BILIRUBIN,TOTAL 0.9 mg/dL (0.2-1.0); BUN - BLOOD UREA NITROGEN 14 mg/dL (6-20); CALCIUM 9.7 mg/dL (8.5-10.3); CARBON DIOXIDE - CO2 25 mmol/L (21-32); CHLORIDE 108 mmol/L (101-111); CHOL/HDL RATIO 3.8 (<4.4); CHOLESTEROL 253 mg/dL; CREATININE 0.5 mg/dL (0.4-1.0); GFR - MDRD 123 (>89); GLUCOSE 140 mg/dL (70-100); HDL CHOLESTEROL 67 mg/dL; LDL CHOLESTEROL,CALCULATED 133 mg/dL; POTASSIUM 4.3 mmol/L (3.5-5.0); SODIUM 144 mmol/L (135-145); TOTAL PROTEIN 7.5 g/dL (6.7-8.2); TRIGLYCERIDES 263 mg/dL; VLDL CHOLESTEROL 53 mg/dL
[2020-09-12 12:55] LABS: ESTIMATED AVERAGE GLUCOSE 226 mg/dL (70-100); HEMOGLOBIN A1c% 9.5 % (4.27-6.07)
== END 2020-09-12 23:59 | disposition home or self-care (01) ==
LOC: LAB.WCP 08:00
PROVIDERS: ATTEND Physician Assistant Medical
DX: E11.9 Type 2 diabetes mellitus without complications (principal)
CPT/HCPCS: 36415; 80053; 80061; 83036; 83721

== ENCOUNTER 2020-11-29 17:35 | Emergency (ER) | payer MEDICARE, OTHER ==
[2020-11-29] MEDS ORDERED: oxyCODONE 5 MG TABLET PO STA (18:14)
--- NOTE | 2020-11-29 18:15 | ED Physician Documentation ---
History of Present Illness - Stated complaint Stated Complaint: FELL ON L WRIST - Chief complaint Chief Complaint: General - Additonal information Additional information: 70-year-old female presents the emergency department for evaluation of left wrist, right hand and left tib-fib pain. She was stepping up on a curb and misjudged the distance falling forward on her outstretched hands. She did not strike her head. There was no loss of consciousness. She is not anticoagulated. She presents with bruising on the palmar side of her right hand and thumb as well as significant tenderness and swelling in the left wrist without obvious deformity. She has superficial abrasions of her left holt. Review of Systems Constitutional: denies: Fever Eyes: reports: Reviewed and negative Nose: reports: Reviewed and negative Throat: reports: Reviewed and negative Cardiac: reports: Reviewed and negative Respiratory: reports: Reviewed and negative GI: reports: Reviewed and negative : reports: Dysuria Musculoskeletal: reports: Extremity pain, Joint pain Neurologic: reports: Reviewed and negative PD PAST MEDICAL HISTORY - Past Medical History Past Medical History: Yes Cardiovascular: None Respiratory: None Neuro: Head injury, Headaches Endocrine/Autoimmune: Type 2 diabetes, HyPOthyroidism GI: Hepatitis, Other : Other HEENT: None Psych: None Musculoskeletal: Osteoarthritis Derm: None - Past Surgical History Past Surgical History: Yes General: Cholecystectomy, Colonoscopy Ortho: 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 HEENT: Other - Present Medications Home Medications: Ambulatory Orders Medication Instructions Recorded Confirmed Lidocaine Patch 5% [Lidoderm Patch] 1 - 3 patch TOP DAILY PRN 09/30/12 04/15/20 Sitagliptin Phos/Metformin HCl 2 tab PO DAILY 09/30/12 04/18/20 [Janumet Xr 100-1,000 mg Tablet] Ursodiol [Zafar Forte] 500 mg PO TID 09/30/12 04/18/20 Empagliflozin [Jardiance] 25 mg PO DAILY 02/16/20 04/18/20 Levothyroxine Sodium [Synthroid] 150 mcg PO QDAC 02/16/20 04/18/20 oxyCODONE [Roxicodone] 5 mg PO BID #15 tablet 11/29/20 - Allergies Allergies/Adverse Reactions: Allergies Allergy/AdvReac Type Severity Reaction Status Date / Time No Known Drug Allergies Allergy Verified 11/29/20 17:51 - Social History Does the pt smoke?: No Smoking Status: Never smoker Does the pt drink ETOH?: No Does the pt have substance abuse?: No - Immunizations Immunizations are current?: Yes - POLST Patient has POLST: Yes PD ED PE EXPANDED - General General: Alert, No acute distress, Well developed/nourished - Cardiac Cardiac: Regular Rate, Radial strong equal, Pedal strong equal - Respiratory Respiratory: Clear to ausultation lester. No: Distress, Labored - Abdomen Abdomen: Normal Bowel sounds. No: Tender to palpation - Extremities Extremities: Normal, Deformity, Tenderness, Left wrist (Significant tenderness of the distal left wrist over radial prominence with passive flexion and extension though no deformity or ecchymosis. 2+ radial pulse. Normal grasp and strength of the left hand.), Right hand (Swelling on the palmar side of the right hand thenar eminence. Normal movement flexion of the right hand. 2+ radial pulse. Normal flexion extension of the wrist without pain elicited.), Left knee (Normal flexion extension. No laxity. No ecchymosis bruising or swelling.), Left leg (Superficial abrasions and mild tenderness ecchymosis on the anterior of the left lower leg. Patient is able to bear weight on this leg though painful.) Results - Vitals Vitals: Vital Signs - 24 hr 11/29/20 17:46 Temperature 36.4 C L Heart Rate 96 Respiratory 16 Rate Blood Pressure 132/78 H O2 Saturation 100 Oxygen O2 Source Room air - Rads (name of study) left tib/fib Radiology: Final report received (no acute fx or dislocation) right hand xr Radiology: Final report received (No acute fracture or dislocation.) left wrist Radiology: Final report received (Nondisplaced intra-articular distal radius fracture.) PD MEDICAL DECISION MAKING - ED course Complexity details: reviewed results, re-evaluated patient, d/w patient ED course: 70-year-old female presents the emergency department for evaluation of left wrist right hand and left lower leg pain after FOOSH this afternoon. X-ray of the right hand and leg are without revealing pathology. However the left wrist does show a distal nondisplaced intra-articular fracture. Patient was placed in a sugar tong splint and will be referred to orthopedics for follow-up. I am prescribing a short course of short-acting opioid pain medication for this patient. 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 I have discussed that the opioids are for short term therapy only, and will not be refilled from the ED. Departure - Departure Disposition: 01 Home, Self Care Clinical Impression: Swelling of right hand Closed left radial fracture Qualifiers: Encounter type: initial encounter Radius location: distal Fracture morphology: other intra-articular Qualified Code(s): S52.572A - Other intraarticular fracture of lower end of left radius, initial encounter for closed fracture Abrasion of left leg Qualifiers: Encounter type: initial encounter Qualified Code(s): S80.812A - Abrasion, left lower leg, initial encounter Condition: Stable Record reviewed to determine appropriate education?: Yes Instructions: ED Fx Upper Ext Follow-Up: Nathan Watson MD [Provider Admit Priv/Credential] - Prescriptions: oxyCODONE [Roxicodone] 5 mg PO BID #15 tablet Comments: Neema caban were seen today in the emergency department after a ground-level fall. The x-ray of your right hand does not show any broken bones. The x-ray of your left lower leg is also normal. Please apply any antibiotic ointment to your abrasions. The x-ray of your left wrist does show a nondisplaced distal radial fracture. We have placed you in a type of splint called a sugar tong. Cannot get wet. Please use a plastic bag over your arm when showering. Call the orthopedics department for follow-up in 7 to 10 days. This type of fracture will likely heal well with simple immobilization. I am prescribing a short course of narcotic pain medication for you. These are potentially dangerous and addictive medications that should be used carefully. These medications may constipate you. Take an klrk-iqz-nqihclf stool softener (docusate) twice daily with plenty of water while taking these medications. If you go 24 hours without a bowel movement, take kqoy-dey-hghmxwe miralax, per package instructions. Do not drink or drive while taking these medications. If you received narcotic or sedating medications while in the emergency department, do not drive for 24 hours. Store this medication in a safe, secure place and out of reach of children. It is a violation of federal law to give or sell this medication to another person or to use in a manner other than prescribed. The ED will not refill narcotic prescriptions, including prescriptions lost or stolen. To dispose of unwanted medications: 1. [facility] at [address] in [place] has a medication drop box. They accept prescription medications (in pill form) Saturday through Saturday 9:00 a.m. to 5:00 p.m. 2. The [facility] accepts prescription medications (in pill form only) for disposal year round. Call for more information. 3. Contact the [facility] for the next [facility] sponsored prescription drug collection event. , [phone], or [phone]; Note that many narcotic pain relievers also contain Tylenol/acetaminophen. Please ensure that your total dose of acetaminophen from all sources does not exceed 3 g (3000 mg) per day.
--- NOTE | 2020-11-29 18:52 | XRAY Report ---
PROCEDURE: Hand 3 View RT INDICATIONS: pain at base of thumb TECHNIQUE: 3 views of the hand(s) acquired. COMPARISON: None FINDINGS: Bones: No fractures or dislocations. No suspicious bony lesions. Mild first CMC joint osteoarthriti s. Soft tissues: No suspicious soft tissue calcifications. IMPRESSION: No fracture. No acute osseous lesion. If there are persistent symptoms or continued clinical concern for pathology, then repeat plain film radiographs (7-10 days) or advanced imaging (CT, MR, bone scan) should be considered for further evaluation. Reviewed by: Destiny Yung MD, PhD on 11/29/2020 6:51 PM PDT Approved by: Destiny Yung MD, PhD on 11/29/2020 6:51 PM PDT Station ID: [id number]
--- NOTE | 2020-11-29 18:53 | XRAY Report ---
PROCEDURE: Tib/Fib LT INDICATIONS: FALL; pain anterior holt TECHNIQUE: 2 views of the tibia and fibula were acquired. COMPARISON: None FINDINGS: Bones: No fractures or dislocations. No suspicious bony lesions. Soft tissues: No suspicious soft tissue calcifications or masses. IMPRESSION: No fracture. No osseous lesion. If there are persistent symptoms or continued clinical concern for pa thology, then repeat plain film radiographs (7-10 days) or advanced imaging (CT, MR, bone scan) shoul d be considered for further evaluation. Reviewed by: Destiny Yung MD, PhD on 11/29/2020 6:51 PM PDT Approved by: Destiny Yung MD, PhD on 11/29/2020 6:51 PM PDT Station ID: [id number]
--- NOTE | 2020-11-29 18:54 | XRAY Report ---
PROCEDURE: Wrist 3 View LT INDICATIONS: FOOSH; pain in wrist TECHNIQUE: 3 views of the wrist were acquired. COMPARISON: None FINDINGS: Bones: Lucency noted in the radial styloid process concerning for nondisplaced fracture. Fracture ext ends into the radiocarpal joint Soft tissues: No suspicious soft tissue calcifications. IMPRESSION: Nondisplaced, intra-articular distal radius fracture. Reviewed by: Destiny Yung MD, PhD on 11/29/2020 6:53 PM PDT Approved by: Destiny Yung MD, PhD on 11/29/2020 6:53 PM PDT Station ID: [id number]
[2020-11-29 19:25] VITALS: BP 144/73
== END 2020-11-29 19:29 | disposition home or self-care (01) ==
LOC: ED 17:35
DX: S52.572A Other intraarticular fracture of lower end of left radius, initial encounter for closed fracture (principal); W10.1XXA Fall (on)(from) sidewalk curb, initial encounter; E11.9 Type 2 diabetes mellitus without complications; Z79.4 Long term (current) use of insulin
CPT/HCPCS: 73110; 73130; 73590; 99283; 99284; A9270

== ENCOUNTER 2020-12-08 16:47 | Emergency (ER) | payer MEDICARE, OTHER ==
[2020-12-08] MEDS ORDERED: cefTRIAXone 1 GM in SODIUM CHLORIDE 0.9% MINIBAG 100 ML IV STA (17:47)
[2020-12-08] MEDS ORDERED: PANTOPRAZOLE 40 MG VIAL IVP STA (17:47)
[2020-12-08] MEDS ORDERED: PANTOPRAZOLE 80 MG in SODIUM CHLORIDE 0.9% 100ML 100 ML IV STA (17:47)
[2020-12-08] MEDS ORDERED: OCTREOTIDE 100 MCG/ML VIAL IVP STA (17:47)
[2020-12-08] MEDS ORDERED: OCTREOTIDE 500 MCG in SODIUM CHLORIDE 0.9% 100ML 95 ML IV STA (17:47)
[2020-12-08 17:50] LABS: BASOPHILS % (AUTO) 0.6 %; EOSINOPHILS # (AUTO) 0.1 10^3/uL (0.0-0.7); EOSINOPHILS % (AUTO) 2.3 %; HCT - HEMATOCRIT 32.2 % (37.0-47.0); HGB - HEMOGLOBIN 9.9 g/dL (12.0-16.0); LYMPHOCYTES % (AUTO) 31.8 %; MEAN CORPUSCULAR HGB CONC 30.7 g/dL (32.0-36.0); MEAN CORPUSCULAR VOLUME 78.2 fL (81.0-99.0); MEAN PLATELET VOLUME 11.7 fL (7.9-10.8); MONOCYTES # (AUTO) 0.5 10^3/uL (0.0-1.0); MONOCYTES % (AUTO) 8.2 %; NEUTROPHILS # (AUTO) 3.5 10^3/uL (1.5-6.6); NEUTROPHILS % (AUTO) 56.8 %; PLT - PLATELET COUNT 141 10^3/uL (130-450); RED BLOOD COUNT 4.12 10^6/uL (4.20-5.40); RED CELL DISTRIBUTION WIDTH 17.2 % (12.0-15.0); WHITE BLOOD COUNT 6.2 x10^3/uL (4.8-10.8)
--- NOTE | 2020-12-08 17:57 | ED Physician Documentation ---
PD HPI ABD PAIN - Stated complaint Stated Complaint: VOMITING BLOOD - Chief complaint Chief Complaint: Abd Pain - History obtained from History obtained from: Patient, Family - Additional information Additional information: 70-year-old woman with history of remote alcohol abuse, none in many years and a known history of varices had a single large volume bloody emesis today. Is associated with mild upper abdominal pain and a feeling of "rawness." Review of Systems Ten Systems: 10 systems reviewed and negative Constitutional: denies: Fever, Chills Ears: reports: Reviewed and negative Cardiac: reports: Reviewed and negative Respiratory: reports: Reviewed and negative PD PAST MEDICAL HISTORY - Past Medical History Cardiovascular: None Respiratory: None Neuro: Head injury, Headaches Endocrine/Autoimmune: Type 2 diabetes, HyPOthyroidism GI: Hepatitis, Other : Other HEENT: None Psych: None Musculoskeletal: Osteoarthritis Derm: None - Past Surgical History Past Surgical History: Yes General: Cholecystectomy, Colonoscopy 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 HEENT: Other - Present Medications Home Medications: Ambulatory Orders Medication Instructions Recorded Confirmed Ursodiol [Zafar Forte] 500 mg PO TID 09/30/12 12/08/20 Empagliflozin [Jardiance] 25 mg PO DAILY 02/16/20 12/08/20 Levothyroxine Sodium [Synthroid] 150 mcg PO QDAC 02/16/20 12/08/20 Dulaglutide [Trulicity] 0.75 mg SQ Q7D 12/08/20 12/08/20 - Allergies Allergies/Adverse Reactions: Allergies Allergy/AdvReac Type Severity Reaction Status Date / Time No Known Drug Allergies Allergy Verified 12/08/20 17:26 - Social History Does the pt smoke?: No Smoking Status: Never smoker Does the pt drink ETOH?: No Does the pt have substance abuse?: No - Family History Family history: reports: Non contributory - Immunizations Immunizations are current?: Yes - POLST Patient has POLST: Yes PD ED PE NORMAL - Vitals Vital signs reviewed: Yes - General General: Alert and oriented X 3, No acute distress - HEENT HEENT: PERRL, EOMI - Neck Neck: Supple, no meningeal sign, No bony TTP - Cardiac Cardiac: RRR, No murmur - Respiratory Respiratory: No respiratory distress, Clear bilaterally - Abdomen Abdomen: Normal bowel sounds, Soft, Non tender - Back Back: No CVA TTP, No spinal TTP - Derm Derm: Normal color, Warm and dry - Extremities Extremities: No edema, No calf tenderness / cord - Neuro Neuro: Alert and oriented X 3, Normal speech Results - Vitals Vitals: Vital Signs - 24 hr 12/08/20 12/08/20 12/08/20 17:23 18:09 20:00 Temperature 36.6 C 36.5 C Heart Rate 104 H 95 93 Respiratory 15 16 16 Rate Blood Pressure 124/78 134/79 H 117/64 O2 Saturation 99 96 97 12/08/20 12/09/20 12/09/20 23:38 00:24 02:11 Temperature Heart Rate 87 89 87 Respiratory 15 14 16 Rate Blood Pressure 113/60 116/66 112/65 O2 Saturation 95 97 95 12/09/20 12/09/20 12/09/20 03:22 04:40 06:20 Temperature Heart Rate 83 80 83 Respiratory 15 14 16 Rate Blood Pressure 111/69 107/68 125/66 O2 Saturation 95 96 97 12/09/20 12/09/20 12/09/20 08:22 10:00 11:30 Temperature Heart Rate 78 80 78 Respiratory 13 13 11 L Rate Blood Pressure 115/67 107/67 121/89 H O2 Saturation 95 97 97 12/09/20 12/09/20 13:00 15:00 Temperature Heart Rate 81 84 Respiratory 13 14 Rate Blood Pressure 123/67 133/68 H O2 Saturation 96 97 Oxygen O2 Source Room air - Labs Labs: Laboratory Tests 12/08/20 12/08/20 12/08/20 17:41 17:41 18:05 WBC 6.2 RBC 4.12 L Hgb 9.9 L Hct 32.2 L MCV 78.2 L MCH 24.0 L MCHC 30.7 L RDW 17.2 H Plt Count 141 MPV 11.7 H Neut # (Auto) 3.5 Lymph # (Auto) 2.0 [place] # (Auto) 0.5 Eos # (Auto) 0.1 Baso # (Auto) 0.0 Absolute Nucleated RBC 0.00 Nucleated RBC % 0.0 PT 13.2 H INR 1.2 Sodium 136 Potassium 3.7 Chloride 102 Carbon Dioxide 23 Anion Gap 11.0 BUN 22 H Creatinine 0.5 Estimated GFR (MDRD) 123 Glucose 207 H Calcium 9.5 Total Bilirubin 1.0 AST 63 H ALT 49 Alkaline Phosphatase 232 H Total Protein 7.7 Albumin 3.9 Globulin 3.8 Albumin/Globulin Ratio 1.0 Lipase 26 Urine Color Urine Clarity Urine pH Ur Specific [place] Urine Protein Urine Glucose (UA) Urine Ketones Urine Occult Blood Urine Nitrite Urine Bilirubin Urine Urobilinogen Ur Leukocyte Esterase Urine RBC Urine WBC Ur Squamous Epith Cells Urine Bacteria Ur Microscopic Review Urine Culture Comments Nasal Adenovirus (PCR) Nasal B. parapertussis DNA (PCR) Nasal Coronavir 229E PCR Nasal Coronavir HKU1 PCR Nasal Coronavir NL63 PCR Nasal Coronavir OC43 PCR Nasal Enterovir/Rhinovir PCR Nasal Influenza B PCR Nasal Influenza A PCR Nasal Parainfluen 1 PCR Nasal Parainfluen 2 PCR Nasal Parainfluen 3 PCR Nasal Parainfluen 4 PCR Nasal RSV (PCR) Nasal B.pertussis DNA PCR Nasal C.pneumoniae (PCR) [place] Human Metapneumo PCR Nasal M.pneumoniae (PCR) Nasal SARS-CoV-2 (PCR) Ethyl Alcohol Blood Type Antibody Screen Crossmatch IS Only 12/08/20 12/08/20 12/08/20 18:05 18:05 20:09 WBC RBC Hgb 8.6 L Hct 27.5 L MCV MCH MCHC RDW Plt Count MPV Neut # (Auto) Lymph # (Auto) [place] # (Auto) Eos # (Auto) Baso # (Auto) Absolute Nucleated RBC Nucleated RBC % PT INR Sodium Potassium Chloride Carbon Dioxide Anion Gap BUN Creatinine Estimated GFR (MDRD) Glucose Calcium Total Bilirubin AST ALT Alkaline Phosphatase Total Protein Albumin Globulin Albumin/Globulin Ratio Lipase Urine Color Urine Clarity Urine pH Ur Specific [place] Urine Protein Urine Glucose (UA) Urine Ketones Urine Occult Blood Urine Nitrite Urine Bilirubin Urine Urobilinogen Ur Leukocyte Esterase Urine RBC Urine WBC Ur Squamous Epith Cells Urine Bacteria Ur Microscopic Review Urine Culture Comments Nasal Adenovirus (PCR) Nasal B. parapertussis DNA (PCR) Nasal Coronavir 229E PCR Nasal Coronavir HKU1 PCR Nasal Coronavir NL63 PCR Nasal Coronavir OC43 PCR Nasal Enterovir/Rhinovir PCR Nasal Influenza B PCR Nasal Influenza A PCR Nasal Parainfluen 1 PCR Nasal Parainfluen 2 PCR Nasal Parainfluen 3 PCR Nasal Parainfluen 4 PCR Nasal RSV (PCR) Nasal B.pertussis DNA PCR Nasal C.pneumoniae (PCR) [place] Human Metapneumo PCR Nasal M.pneumoniae (PCR) Nasal SARS-CoV-2 (PCR) Ethyl Alcohol < 5.0 Blood Type O POSITIVE Antibody Screen NEGATIVE Crossmatch IS Only See Detail 12/08/20 12/08/20 12/09/20 20:41 22:48 07:49 WBC RBC Hgb 8.4 L 8.1 L Hct 27.5 L 26.4 L MCV MCH MCHC RDW Plt Count MPV Neut # (Auto) Lymph # (Auto) [place] # (Auto) Eos # (Auto) Baso # (Auto) Absolute Nucleated RBC Nucleated RBC % PT INR Sodium Potassium Chloride Carbon Dioxide Anion Gap BUN Creatinine Estimated GFR (MDRD) Glucose Calcium Total Bilirubin AST ALT Alkaline Phosphatase Total Protein Albumin Globulin Albumin/Globulin Ratio Lipase Urine Color Urine Clarity Urine pH Ur Specific [place] Urine Protein Urine Glucose (UA) Urine Ketones Urine Occult Blood Urine Nitrite Urine Bilirubin Urine Urobilinogen Ur Leukocyte Esterase Urine RBC Urine WBC Ur Squamous Epith Cells Urine Bacteria Ur Microscopic Review Urine Culture Comments Nasal Adenovirus (PCR) NOT DETECTED Nasal B. parapertussis DNA (PCR) NOT DETECTED Nasal Coronavir 229E PCR NOT DETECTED Nasal Coronavir HKU1 PCR NOT DETECTED Nasal Coronavir NL63 PCR NOT DETECTED Nasal Coronavir OC43 PCR NOT DETECTED Nasal Enterovir/Rhinovir PCR NOT DETECTED Nasal Influenza B PCR NOT DETECTED Nasal Influenza A PCR NOT DETECTED Nasal Parainfluen 1 PCR NOT DETECTED Nasal Parainfluen 2 PCR NOT DETECTED Nasal Parainfluen 3 PCR NOT DETECTED Nasal Parainfluen 4 PCR NOT DETECTED Nasal RSV (PCR) NOT DETECTED Nasal B.pertussis DNA PCR NOT DETECTED Nasal C.pneumoniae (PCR) NOT DETECTED [place] Human Metapneumo PCR NOT DETECTED Nasal M.pneumoniae (PCR) NOT DETECTED Nasal SARS-CoV-2 (PCR) NOT DETECTED Ethyl Alcohol Blood Type Antibody Screen Crossmatch IS Only 12/09/20 10:11 WBC RBC Hgb Hct MCV MCH MCHC RDW Plt Count MPV Neut # (Auto) Lymph # (Auto) [place] # (Auto) Eos # (Auto) Baso # (Auto) Absolute Nucleated RBC Nucleated RBC % PT INR Sodium Potassium Chloride Carbon Dioxide Anion Gap BUN Creatinine Estimated GFR (MDRD) Glucose Calcium Total Bilirubin AST ALT Alkaline Phosphatase Total Protein Albumin Globulin Albumin/Globulin Ratio Lipase Urine Color DARK YELLOW Urine Clarity CLEAR Urine pH 5.5 Ur Specific [place] >=1.030 H Urine Protein 30 H Urine Glucose (UA) 500 H Urine Ketones NEGATIVE Urine Occult Blood NEGATIVE Urine Nitrite NEGATIVE Urine Bilirubin NEGATIVE Urine Urobilinogen 0.2 (NORMAL) Ur Leukocyte Esterase NEGATIVE Urine RBC 0-5 Urine WBC 0-3 Ur Squamous Epith Cells FEW Squamous Urine Bacteria Few Ur Microscopic Review INDICATED Urine Culture Comments NOT INDICATED Nasal Adenovirus (PCR) Nasal B. parapertussis DNA (PCR) Nasal Coronavir 229E PCR Nasal Coronavir HKU1 PCR Nasal Coronavir NL63 PCR Nasal Coronavir OC43 PCR Nasal Enterovir/Rhinovir PCR Nasal Influenza B PCR Nasal Influenza A PCR Nasal Parainfluen 1 PCR Nasal Parainfluen 2 PCR Nasal Parainfluen 3 PCR Nasal Parainfluen 4 PCR Nasal RSV (PCR) Nasal B.pertussis DNA PCR Nasal C.pneumoniae (PCR) [place] Human Metapneumo PCR Nasal M.pneumoniae (PCR) Nasal SARS-CoV-2 (PCR) Ethyl Alcohol Blood Type Antibody Screen Crossmatch IS Only PD MEDICAL DECISION MAKING - ED course ED course: 70-year-old woman with known esophageal varices presents after single but large- volume hematemesis today. Ordered 2 IVs, blood, Protonix, octreotide, Rocephin. Spoke with our on-call surgeon, Dr. Mckee after initial arrival. Usually would immediately try to transfer variceal bleed, that said most of the surrounding hospitals with specialty coverage are full. He said he would take a look tomorrow if we are unable to find a an accepting facility for her. Case was discussed with GI in [place], Dr. Brar at 6:26 PM. We reviewed prior endoscopies upper and lower and he was concerned by the finding of rectal varices on lower endoscopy from March of last year opining that she probably needs a TIPS procedure and they do not perform that there and recommended transfer to [facility] or [facility]. D/w patient and , currently all major hospitals in [facility] are overwhelmed due to high volumes COVID fourth wave and transfer may be significantly delayed as tertiary beds are scarce to nonexistent. Care to overnight emergency physician at change of shift. Departure - Departure Disposition: 01 Home, Self Care Clinical Impression: Upper GI bleeding, Chronic hepatitis GI bleeding Qualifiers: GI bleed type/associated pathology: unspecified gastrointestinal hemorrhage type Qualified Code(s): K92.2 - Gastrointestinal hemorrhage, unspecified Condition: Serious Instructions: ED Hematochezia Stable, ED Bleed UGI Stable Follow-Up: Eddie Cade MD [Physician No Access] - Lindsey Baez PA-C [Primary Care Provider] - Comments: Today it appears the bleeding you are having from your esophagus has stopped and there is concern for further treatment needed for esophageal varices. Follow-up with her trade analyst as planned. If you develop symptoms again of vomiting blood return to the emergency department by ambulance. Discharge Date/Time: 12/09/20 15:53
[2020-12-08 18:02] LABS: ALBUMIN 3.9 g/dL (3.2-5.5); CALCIUM 9.5 mg/dL (8.5-10.3); CREATININE 0.5 mg/dL (0.4-1.0); POTASSIUM 3.7 mmol/L (3.5-5.0); TOTAL PROTEIN 7.7 g/dL (6.7-8.2)
[2020-12-08 18:18] LABS: INR 1.2 (0.8-1.2); PT - PROTHROMBIN TIME 13.2 secs (9.9-12.6)
[2020-12-08 20:22] LABS: HCT - HEMATOCRIT 27.5 % (37.0-47.0); HGB - HEMOGLOBIN 8.6 g/dL (12.0-16.0)
[2020-12-08 21:42] LABS: CORONAVIRUS 229E-RESP PCR NOT DETECTED; CORONAVIRUS HKU1-RESP PCR NOT DETECTED; CORONAVIRUS NL63-RESP PCR NOT DETECTED; CORONAVIRUS OC43-RESP PCR NOT DETECTED; HUMAN METAPNEUMOVIRUS NOT DETECTED; INFLUENZA A- RESP PCR PANEL NOT DETECTED; RHINOVIRUS/ENTEROVIRUS NOT DETECTED; SARS-CoV-2 -RESP PCR PANEL NOT DETECTED
[2020-12-08 21:43] LABS: B. PARAPERTUSSIS- RESP PCR PAN NOT DETECTED; B. PERTUSSIS- RESP PCR PANEL NOT DETECTED; C. PNEUMONIAE- RESP PCR PANEL NOT DETECTED; INFLUENZA B - RESP PCR PANEL NOT DETECTED; M. PNEUMONIAE- RESP PCR PANEL NOT DETECTED; PARAINFLUENZA VIRUS 1 NOT DETECTED; PARAINFLUENZA VIRUS 2 NOT DETECTED; PARAINFLUENZA VIRUS 3 NOT DETECTED; PARAINFLUENZA VIRUS 4 NOT DETECTED; RSV- RESP PCR PANEL NOT DETECTED
[2020-12-08 23:01] LABS: HCT - HEMATOCRIT 27.5 % (37.0-47.0); HGB - HEMOGLOBIN 8.4 g/dL (12.0-16.0)
[2020-12-09] MEDS ORDERED: OCTREOTIDE 500 MCG in SODIUM CHLORIDE 0.9% 100ML 95 ML IV STA (04:17)
[2020-12-09] MEDS ORDERED: SODIUM CHLORIDE 0.9% 1,000 ML IV STA (06:24)
[2020-12-09] MEDS ORDERED: SODIUM CHLORIDE 0.9% 500 ML IV STA (06:24)
[2020-12-09 07:57] LABS: HCT - HEMATOCRIT 26.4 % (37.0-47.0); HGB - HEMOGLOBIN 8.1 g/dL (12.0-16.0)
[2020-12-09 10:26] LABS: BILIRUBIN,URINE NEGATIVE (NEGATIVE); GLUCOSE, URINE (UA) 500 mg/dL (NEGATIVE); KETONES,URINE (UA) NEGATIVE (NEGATIVE); LEUKOCYTE ESTERASE, URINE NEGATIVE (NEGATIVE); NITRITE,URINE NEGATIVE (NEGATIVE); OCCULT BLOOD,URINE NEGATIVE (NEGATIVE); PH,URINE 5.5 PH (5.0-7.5); PROTEIN,URINE 30 mg/dL (NEGATIVE); UROBILINOGEN,URINE 0.2 (NORMAL) E.U./dL (NORMAL)
[2020-12-09 10:29] LABS: CLARITY,URINE CLEAR (CLEAR)
[2020-12-09 10:42] LABS: WBC,URINE 0-3 /HPF (0-5)
[2020-12-09 10:43] LABS: BACTERIA,URINE Few /HPF (None Seen); RBC,URINE 0-5 /HPF (0-5); SQUAMOUS EPITHELIAL CELL,UR FEW Squamous (<= Few)
--- NOTE | 2020-12-09 12:10 | ED Physician Documentation ---
History of Present Illness - Stated complaint Stated Complaint: VOMITING BLOOD - Chief complaint Chief Complaint: Abd Pain - History obtained from History obtained from: Patient - History of Present Illness Timing: Last night - Additonal information Additional information: 70-year-old female who developed dark tarry stool yesterday morning and then vomited cassius blood has a history of esophageal varices which have been banded they have been banded again about 1 month ago and the patient has a history of cirrhosis. The patient has primary biliary sclerosis and she has a history of alcohol use. She has discontinued alcohol use. She was seen in the emergency department yesterday evening by Dr. Pablo and she was placed on an octeotride drip. She dropped her hemoglobin about 1 g. Subsequently she has not had any bleeding and no vomiting. She has had her varices banded here and at that time there was a question of some rectal varices as well and when this information was relayed to the interior design professor yesterday evening they recommended transfer to a facility capable of doing a TIPS procedure. I have evaluated the patient and I do not believe that a TIPS procedure is indicated. She is not having bleeding now, her report from [facility] indicates mild varices and a single banding done 1 month ago. She has been in the hospital overnight on an octeotride drip. We will discontinue the drip and I will ask our hospitalist to put her into the hospital for observation. I have talked to our surgeon, Dr. Mckee who is in agreement with the plan. We were unable to find a bed for this patient with suspected bleeding varices. She did respond to our treatment with Octeiotired and she has not had any bleeding overnight. She has not had bleeding for 23 hours. She has been treated with proton pump inhibitor as well. Our above plan was not placed into action as our hospitalist was concerned that there would be no backup for esophageal banding should this become necessary. The patient would like to go home. The octreotide drip is discontinued she does not have further bleeding and arrangements were made for follow-up for the pat ient to have her esophageal esophagus reexamined and banded if needed. 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 HEENT: Other - Present Medications Home Medications: Ambulatory Orders Medication Instructions Recorded Confirmed Ursodiol [Zafar Forte] 500 mg PO TID 09/30/12 12/08/20 Empagliflozin [Jardiance] 25 mg PO DAILY 02/16/20 12/08/20 Levothyroxine Sodium [Synthroid] 150 mcg PO QDAC 02/16/20 12/08/20 Dulaglutide [Trulicity] 0.75 mg SQ Q7D 12/08/20 12/08/20 - Allergies Allergies/Adverse Reactions: Allergies Allergy/AdvReac Type Severity Reaction Status Date / Time No Known Drug Allergies Allergy Verified 12/08/20 17:26 - Social History Does the pt smoke?: No Smoking Status: Never smoker Does the pt drink ETOH?: No Does the pt have substance abuse?: No - Immunizations Immunizations are current?: Yes - POLST Patient has POLST: Yes Results - Vitals Vitals: Vital Signs - 24 hr 12/08/20 12/08/20 12/08/20 17:23 18:09 20:00 Temperature 36.6 C 36.5 C Heart Rate 104 H 95 93 Respiratory 15 16 16 Rate Blood Pressure 124/78 134/79 H 117/64 O2 Saturation 99 96 97 12/08/20 12/09/20 12/09/20 23:38 00:24 02:11 Temperature Heart Rate 87 89 87 Respiratory 15 14 16 Rate Blood Pressure 113/60 116/66 112/65 O2 Saturation 95 97 95 12/09/20 12/09/20 12/09/20 03:22 04:40 06:20 Temperature Heart Rate 83 80 83 Respiratory 15 14 16 Rate Blood Pressure 111/69 107/68 125/66 O2 Saturation 95 96 97 12/09/20 12/09/20 12/09/20 08:22 10:00 11:30 Temperature Heart Rate 78 80 78 Respiratory 13 13 11 L Rate Blood Pressure 115/67 107/67 121/89 H O2 Saturation 95 97 97 12/09/20 12/09/20 13:00 15:00 Temperature Heart Rate 81 84 Respiratory 13 14 Rate Blood Pressure 123/67 133/68 H O2 Saturation 96 97 Oxygen O2 Source Room air - Labs Labs: Laboratory Tests 12/08/20 12/08/20 12/08/20 17:41 17:41 18:05 WBC 6.2 RBC 4.12 L Hgb 9.9 L Hct 32.2 L MCV 78.2 L MCH 24.0 L MCHC 30.7 L RDW 17.2 H Plt Count 141 MPV 11.7 H Neut # (Auto) 3.5 Lymph # (Auto) 2.0 [place] # (Auto) 0.5 Eos # (Auto) 0.1 Baso # (Auto) 0.0 Absolute Nucleated RBC 0.00 Nucleated RBC % 0.0 PT 13.2 H INR 1.2 Sodium 136 Potassium 3.7 Chloride 102 Carbon Dioxide 23 Anion Gap 11.0 BUN 22 H Creatinine 0.5 Estimated GFR (MDRD) 123 Glucose 207 H Calcium 9.5 Total Bilirubin 1.0 AST 63 H ALT 49 Alkaline Phosphatase 232 H Total Protein 7.7 Albumin 3.9 Globulin 3.8 Albumin/Globulin Ratio 1.0 Lipase 26 Urine Color Urine Clarity Urine pH Ur Specific [place] Urine Protein Urine Glucose (UA) Urine Ketones Urine Occult Blood Urine Nitrite Urine Bilirubin Urine Urobilinogen Ur Leukocyte Esterase Urine RBC Urine WBC Ur Squamous Epith Cells Urine Bacteria Ur Microscopic Review Urine Culture Comments Nasal Adenovirus (PCR) Nasal B. parapertussis DNA (PCR) Nasal Coronavir 229E PCR Nasal Coronavir HKU1 PCR Nasal Coronavir NL63 PCR Nasal Coronavir OC43 PCR Nasal Enterovir/Rhinovir PCR Nasal Influenza B PCR Nasal Influenza A PCR Nasal Parainfluen 1 PCR Nasal Parainfluen 2 PCR Nasal Parainfluen 3 PCR Nasal Parainfluen 4 PCR Nasal RSV (PCR) Nasal B.pertussis DNA PCR Nasal C.pneumoniae (PCR) [place] Human Metapneumo PCR Nasal M.pneumoniae (PCR) Nasal SARS-CoV-2 (PCR) Ethyl Alcohol Blood Type Antibody Screen Crossmatch IS Only 12/08/20 12/08/20 12/08/20 18:05 18:05 20:09 WBC RBC Hgb 8.6 L Hct 27.5 L MCV MCH MCHC RDW Plt Count MPV Neut # (Auto) Lymph # (Auto) [place] # (Auto) Eos # (Auto) Baso # (Auto) Absolute Nucleated RBC Nucleated RBC % PT INR Sodium Potassium Chloride Carbon Dioxide Anion Gap BUN Creatinine Estimated GFR (MDRD) Glucose Calcium Total Bilirubin AST ALT Alkaline Phosphatase Total Protein Albumin Globulin Albumin/Globulin Ratio Lipase Urine Color Urine Clarity Urine pH Ur Specific [place] Urine Protein Urine Glucose (UA) Urine Ketones Urine Occult Blood Urine Nitrite Urine Bilirubin Urine Urobilinogen Ur Leukocyte Esterase Urine RBC Urine WBC Ur Squamous Epith Cells Urine Bacteria Ur Microscopic Review Urine Culture Comments Nasal Adenovirus (PCR) Nasal B. parapertussis DNA (PCR) Nasal Coronavir 229E PCR Nasal Coronavir HKU1 PCR Nasal Coronavir NL63 PCR Nasal Coronavir OC43 PCR Nasal Enterovir/Rhinovir PCR Nasal Influenza B PCR Nasal Influenza A PCR Nasal Parainfluen 1 PCR Nasal Parainfluen 2 PCR Nasal Parainfluen 3 PCR Nasal Parainfluen 4 PCR Nasal RSV (PCR) Nasal B.pertussis DNA PCR Nasal C.pneumoniae (PCR) [place] Human Metapneumo PCR Nasal M.pneumoniae (PCR) Nasal SARS-CoV-2 (PCR) Ethyl Alcohol < 5.0 Blood Type O POSITIVE Antibody Screen NEGATIVE Crossmatch IS Only See Detail 12/08/20 12/08/20 12/09/20 20:41 22:48 07:49 WBC RBC Hgb 8.4 L 8.1 L Hct 27.5 L 26.4 L MCV MCH MCHC RDW Plt Count MPV Neut # (Auto) Lymph # (Auto) [place] # (Auto) Eos # (Auto) Baso # (Auto) Absolute Nucleated RBC Nucleated RBC % PT INR Sodium Potassium Chloride Carbon Dioxide Anion Gap BUN Creatinine Estimated GFR (MDRD) Glucose Calcium Total Bilirubin AST ALT Alkaline Phosphatase Total Protein Albumin Globulin Albumin/Globulin Ratio Lipase Urine Color Urine Clarity Urine pH Ur Specific [place] Urine Protein Urine Glucose (UA) Urine Ketones Urine Occult Blood Urine Nitrite Urine Bilirubin Urine Urobilinogen Ur Leukocyte Esterase Urine RBC Urine WBC Ur Squamous Epith Cells Urine Bacteria Ur Microscopic Review Urine Culture Comments Nasal Adenovirus (PCR) NOT DETECTED Nasal B. parapertussis DNA (PCR) NOT DETECTED Nasal Coronavir 229E PCR NOT DETECTED Nasal Coronavir HKU1 PCR NOT DETECTED Nasal Coronavir NL63 PCR NOT DETECTED Nasal Coronavir OC43 PCR NOT DETECTED Nasal Enterovir/Rhinovir PCR NOT DETECTED Nasal Influenza B PCR NOT DETECTED Nasal Influenza A PCR NOT DETECTED Nasal Parainfluen 1 PCR NOT DETECTED Nasal Parainfluen 2 PCR NOT DETECTED Nasal Parainfluen 3 PCR NOT DETECTED Nasal Parainfluen 4 PCR NOT DETECTED Nasal RSV (PCR) NOT DETECTED Nasal B.pertussis DNA PCR NOT DETECTED Nasal C.pneumoniae (PCR) NOT DETECTED [place]rick Human Metapneumo PCR NOT DETECTED Nasal M.pneumoniae (PCR) NOT DETECTED Nasal SARS-CoV-2 (PCR) NOT DETECTED Ethyl Alcohol Blood Type Antibody Screen Crossmatch IS Only 12/09/20 10:11 WBC RBC Hgb Hct MCV MCH MCHC RDW Plt Count MPV Neut # (Auto) Lymph # (Auto) [place] # (Auto) Eos # (Auto) Baso # (Auto) Absolute Nucleated RBC Nucleated RBC % PT INR Sodium Potassium Chloride Carbon Dioxide Anion Gap BUN Creatinine Estimated GFR (MDRD) Glucose Calcium Total Bilirubin AST ALT Alkaline Phosphatase Total Protein Albumin Globulin Albumin/Globulin Ratio Lipase Urine Color DARK YELLOW Urine Clarity CLEAR Urine pH 5.5 Ur Specific [place] >=1.030 H Urine Protein 30 H Urine Glucose (UA) 500 H Urine Ketones NEGATIVE Urine Occult Blood NEGATIVE Urine Nitrite NEGATIVE Urine Bilirubin NEGATIVE Urine Urobilinogen 0.2 (NORMAL) Ur Leukocyte Esterase NEGATIVE Urine RBC 0-5 Urine WBC 0-3 Ur Squamous Epith Cells FEW Squamous Urine Bacteria Few Ur Microscopic Review INDICATED Urine Culture Comments NOT INDICATED Nasal Adenovirus (PCR) Nasal B. parapertussis DNA (PCR) Nasal Coronavir 229E PCR Nasal Coronavir HKU1 PCR Nasal Coronavir NL63 PCR Nasal Coronavir OC43 PCR Nasal Enterovir/Rhinovir PCR Nasal Influenza B PCR Nasal Influenza A PCR Nasal Parainfluen 1 PCR Nasal Parainfluen 2 PCR Nasal Parainfluen 3 PCR Nasal Parainfluen 4 PCR Nasal RSV (PCR) Nasal B.pertussis DNA PCR Nasal C.pneumoniae (PCR) [place]rick Human Metapneumo PCR Nasal M.pneumoniae (PCR) Nasal SARS-CoV-2 (PCR) Ethyl Alcohol Blood Type Antibody Screen Crossmatch IS Only Departure - Departure Disposition: 01 Home, Self Care Clinical Impression: Upper GI bleeding, Chronic hepatitis GI bleeding Qualifiers: GI bleed type/associated pathology: unspecified gastrointestinal hemorrhage type Qualified Code(s): K92.2 - Gastrointestinal hemorrhage, unspecified Condition: Serious Instructions: ED Bleed UGI Stable, ED Hematochezia Stable Follow-Up: Lindsey Baez PA-C [Primary Care Provider] - Eddie Cade MD [Physician No Access] - Comments: Today it appears the bleeding you are having from your esophagus has stopped and there is concern for further treatment needed for esophageal varices. Follow-up with her interior design professor as planned. If you develop symptoms again of vomiting blood return to the emergency department by ambulance.
[2020-12-09 15:10] VITALS: BP 133/68
--- NOTE | 2020-12-09 15:18 | HISTORY & PHYSICAL EXAMINATION ---
Chief Complaint - Chief Complaint Chief Complaint: threw up blood History of Present Illness - Admitted From Admitted From:: seen in ED - History Obtained From Records Reviewed: yes History obtained from: pt Exam Limitations: none - History of Present Illness HPI Comment/Other: She had a similar episode of bloody emesis in january. She had no further bleeding at that time and had an outpatient EGD and colonoscopy 03/2021 which showed large esophageal varices and rectal varices. She was diagnosed with primary biliary cirrhosis 20 years ago on liver biopsy. This was performed for elevated lfts. She states her lfts have been followed by her primary care doctor and she had was not seeing a chest painting leader. Since january she has had banding of her varices twice. Once in 03/2020 and again more recently in [place]. She has an appointment to see [facility] gastroenterology. She has not had another bloody emesis since 4 pm yesterday. 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 Her mother from dialysis complication and pneumonia at age 82. Social History Notes: Patient report she quit smoking 20 years ago, she deny alcohol or drug issue. She is living with her at [place], she had her 2 children - POLST Patient has POLST: Yes Meds/Allgy - Home Medications Home Medications: Ambulatory Orders Medication Instructions Recorded Confirmed Ursodiol [Zafar Forte] 500 mg PO TID 09/30/12 12/08/20 Empagliflozin [Jardiance] 25 mg PO DAILY 02/16/20 12/08/20 Levothyroxine Sodium [Synthroid] 150 mcg PO QDAC 02/16/20 12/08/20 Dulaglutide [Trulicity] 0.75 mg SQ Q7D 12/08/20 12/08/20 - Allergies Allergies/Adverse Reactions: Allergies Allergy/AdvReac Type Severity Reaction Status Date / Time No Known Drug Allergies Allergy Verified 12/08/20 17:26 Review of Systems - Constitutional Constitutional: reports: Fatigue (10 pt ros as above otherwise unremarkable) Exam - Vital Signs Reviewed Vital Signs: Yes Vital Signs: Vital Signs x48h Pulse Resp BP Pulse Ox 12/09/20 15:00 84 14 133/68 H 97 12/09/20 13:00 81 13 123/67 96 12/09/20 11:30 78 11 L 121/89 H 97 12/09/20 10:00 80 13 107/67 97 12/09/20 08:22 78 13 115/67 95 - Physical Exam General Appearance: positive: No acute distress, Alert Eyes Bilateral: positive: PERRL, EOMI, No scleral icterus ENT: positive: No signs of dehydration Neck: positive: No JVD, Trachea midline Respiratory: positive: No respiratory distress Cardiovascular: positive: Regular rate & rhythm Abdomen: positive: Non-tender, No distention Neurologic/Psychiatric: positive: Oriented x3 Conclusion/Plan - Problem List (1) Upper GI bleeding Conclusion/Plan: Agree with current care. If she remains stable without recurrent bleeding recommend she be seen by a gastroenterology specialist for further management of her primary biliary cirrhosis and varices. I have reviewed her endoscopy images. She clearly has large esophageal varices and clearly has significant rectal varices; not enlarged hemorrhoids. We discussed I am not a specialist in treating varices; however, if she cannot be seen urgently for bleeding by a specialist, cannot transfer to a specialty center, and has recurrent bleeding I am available to try my best to help. - Lab Results Fish Bones: 12/09/20 07:49 12/08/20 17:41 - Diagnostic Imaging Results Diagnostic Imaging Results: positive: Final report reviewed
== END 2020-12-09 15:53 | disposition home or self-care (01) ==
LOC: ED 16:47
DX: K92.2 Gastrointestinal hemorrhage, unspecified (principal); K73.9 Chronic hepatitis, unspecified; K74.3 Primary biliary cirrhosis; I85.10 Secondary esophageal varices without bleeding; I86.8 Varicose veins of other specified sites; F10.21 Alcohol dependence, in remission; Z87.891 Personal history of nicotine dependence; Z20.822 Contact with and (suspected) exposure to COVID-19
CPT/HCPCS: 36415; 80053; 81001; 83690; 85014; 85018; 85025; 85610; 86850; 86900; 86901; 86920; 87631; 96365; 96366; 96368; 96376; 99284; G0480; J2354; 0202U; 80320; 81003; 87086

== ENCOUNTER 2020-12-19 13:30 | Outpatient (CLI) | payer MEDICARE, OTHER ==
--- NOTE | 2020-12-19 16:32 | XRAY Report ---
PROCEDURE: Wrist 3 View LT INDICATIONS: UNSPECIFIED FX OF LEFT FOREARM TECHNIQUE: 3 views of the wrist were acquired. COMPARISON: None FINDINGS: Bones: Cortical lucency involving the anterior margin of the distal radius stable compared to prior e xamination. No suspicious bony lesions. Severe first CMC joint arthritis. Mild triscaphe joint arthri tis. Soft tissues: No suspicious soft tissue calcifications. IMPRESSION: Nondisplaced distal radius fracture not significantly changed.. Reviewed by: Destiny Yung MD, PhD on 12/19/2020 4:30 PM PDT Approved by: Destiny Yung MD, PhD on 12/19/2020 4:30 PM PDT Station ID: [id number]
== END 2020-12-19 23:59 | disposition home or self-care (01) ==
LOC: DI.N 13:30
PROVIDERS: ATTEND Physician Assistant
DX: S52.502A Unspecified fracture of the lower end of left radius, initial encounter for closed fracture (principal)

== ENCOUNTER 2021-01-26 15:34 | Outpatient (CLI) | payer MEDICARE, OTHER ==
--- NOTE | 2021-01-26 16:39 | XRAY Report ---
PROCEDURE: Wrist 3 View LT INDICATIONS: FRACTURE OF LEFT FOREARM TECHNIQUE: 3 views of the wrist were acquired. COMPARISON: X-ray hand 11/29/2020, x-ray wrist 12/19/2020 FINDINGS: Bones: No suspicious bony lesions. There is continued interval healing with stable alignment of dis galo radial fracture. Soft tissues: No suspicious soft tissue calcifications. IMPRESSION: Continued interval healing with stable alignment of distal radial fracture. Reviewed by: Nilda Calderon MD on 01/26/2021 4:38 PM PDT Approved by: Nilda Calderon MD on 01/26/2021 4:38 PM PDT Station ID: [id number]
== END 2021-01-26 15:35 | disposition home or self-care (01) ==
LOC: DI.N 15:34
PROVIDERS: ATTEND Physician Assistant
DX: S52.502D Unspecified fracture of the lower end of left radius, subsequent encounter for closed fracture with routine healing (principal)

== ENCOUNTER 2021-02-13 09:03 | Outpatient (CLI) | payer MEDICARE, OTHER ==
[2021-02-13 12:58] LABS: BUN - BLOOD UREA NITROGEN 11 mg/dL (6-20); CALCIUM 9.1 mg/dL (8.5-10.3); CARBON DIOXIDE - CO2 23 mmol/L (21-32); CHLORIDE 104 mmol/L (101-111); CHOL/HDL RATIO 3.5 (<4.4); CHOLESTEROL 234 mg/dL; CREATININE 0.4 mg/dL (0.4-1.0); GFR - MDRD 159 (>89); GLUCOSE 174 mg/dL (70-100); HDL CHOLESTEROL 66 mg/dL; LDL CHOLESTEROL,CALCULATED 139 mg/dL; LDL/HDL RATIO 2.1 (<4.4); SODIUM 138 mmol/L (135-145); TRIGLYCERIDES 146 mg/dL; VLDL CHOLESTEROL 29 mg/dL
[2021-02-13 12:59] LABS: ESTIMATED AVERAGE GLUCOSE 214 mg/dL (70-100); HEMOGLOBIN A1c% 9.1 % (4.27-6.07)
== END 2021-02-13 23:59 | disposition home or self-care (01) ==
LOC: LAB.WCP 09:03
PROVIDERS: ATTEND Physician Assistant Medical
DX: E11.9 Type 2 diabetes mellitus without complications (principal)
CPT/HCPCS: 36415; 80048; 80061; 83036; 83721

== ENCOUNTER 2021-06-24 09:57 | Outpatient (CLI) | payer MEDICARE, OTHER ==
[2021-06-24 14:24] LABS: CALCIUM 9.4 mg/dL (8.5-10.3); CREATININE 0.4 mg/dL (0.4-1.0); POTASSIUM 4.1 mmol/L (3.5-5.0)
[2021-06-24 14:55] LABS: ESTIMATED AVERAGE GLUCOSE 329 mg/dL (70-100); HEMOGLOBIN A1c% 13.1 % (4.27-6.07)
== END 2021-06-24 09:58 | disposition home or self-care (01) ==
LOC: LAB.N 09:57
PROVIDERS: ATTEND Physician Assistant Medical
DX: E11.9 Type 2 diabetes mellitus without complications (principal)
CPT/HCPCS: 36415; 80048; 83036

== ENCOUNTER 2022-03-16 16:57 | Emergency (ER) | payer MEDICARE, OTHER ==
--- NOTE | 2022-03-16 17:27 | ED Physician Documentation ---
History of Present Illness - Stated complaint Stated Complaint: FEMALE - Chief complaint Chief Complaint: Abd Pain - History obtained from History obtained from: Patient - History of Present Illness Timing: How many weeks ago (1) Pain level max: 2 Pain level now: 2 - Additonal information Additional information: Patient is a 71-year-old female with a history of primary biliary cirrhosis. She states that she has been constipated for the past week. She states small bowel movements. Is not having any vomiting. Has mild abdominal and back pain. Took MiraLAX without relief. She has a history of esophageal varices. She states she does not have any history of bowel obstructions. She is diabetic. No fevers. No chills. No blood in the stool. She states she has had small stools. Patient had a colonoscopy in 2019, showed a sessile polyp that was removed. Had rectal varices and mild diverticulosis. Review of Systems Constitutional: denies: Fever Throat: denies: Sore throat Cardiac: denies: Chest pain / pressure, Palpitations Respiratory: denies: Dyspnea, Cough GI: reports: Constipation. 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 HEENT: Other - Present Medications Home Medications: Ambulatory Orders Medication Instructions Recorded Confirmed Ursodiol [Zafar Forte] 500 mg PO TID 09/30/12 12/08/20 Empagliflozin [Jardiance] 25 mg PO DAILY 02/16/20 12/08/20 Levothyroxine Sodium [Synthroid] 150 mcg PO QDAC 02/16/20 12/08/20 Dulaglutide [Trulicity] 0.75 mg SQ Q7D 12/08/20 12/08/20 Furosemide [Lasix] 20 mg PO DAILY #7 tablet 03/16/22 - Allergies Allergies/Adverse Reactions: Allergies Allergy/AdvReac Type Severity Reaction Status Date / Time No Known Drug Allergies Allergy Verified 03/16/22 17:11 - Social History Does the pt smoke?: No Smoking Status: Never smoker Does the pt drink ETOH?: No Does the pt have substance abuse?: No - Immunizations Immunizations are current?: Yes - POLST Patient has POLST: Yes PD ED PE NORMAL - Vitals Vital signs reviewed: Yes - General General: Alert and oriented X 3, No acute distress - HEENT HEENT: PERRL, Moist mucous membranes - Neck Neck: Supple, no meningeal sign - Cardiac Cardiac: RRR, Strong equal pulses - Respiratory Respiratory: No respiratory distress, Clear bilaterally - Abdomen Abdomen: Soft, Non tender, Other (Distended abdomen) - Back Back: No CVA TTP, No spinal TTP - Derm Derm: Warm and dry - Extremities Extremities: No edema, No calf tenderness / cord - Neuro Neuro: Alert and oriented X 3 - Psych Psych: Normal mood, Normal affect Results - Vitals Vitals: Vital Signs - 24 hr 03/16/22 03/16/22 17:05 19:58 Temperature 97.9 C H Heart Rate 88 77 Respiratory 18 18 Rate Blood Pressure 162/84 H 130/72 O2 Saturation 100 97 Oxygen O2 Source Room air - Labs Labs: Laboratory Tests 03/16/22 03/16/22 03/16/22 17:25 17:25 17:25 WBC 4.8 RBC 3.96 L Hgb 10.7 L Hct 33.8 L MCV 85.4 MCH 27.0 MCHC 31.7 L RDW 17.9 H Plt Count 85 L MPV 10.7 Neut # (Auto) 2.3 Lymph # (Auto) 2.0 [place] # (Auto) 0.4 Eos # (Auto) 0.1 Baso # (Auto) 0.1 Absolute Nucleated RBC 0.00 Nucleated RBC % 0.0 PT 12.7 H INR 1.1 APTT 31.1 Sodium 138 Potassium 3.7 Chloride 104 Carbon Dioxide 25 Anion Gap 9.0 BUN 9 Creatinine 0.6 Estimated GFR (MDRD) 99 Glucose 160 H Calcium 8.7 Total Bilirubin 0.8 AST 127 H ALT 88 H Alkaline Phosphatase 289 H Total Protein 6.8 Albumin 3.5 Globulin 3.3 Albumin/Globulin Ratio 1.1 Lipase 49 Urine Color Urine Clarity Urine pH Ur Specific [place] Urine Protein Urine Glucose (UA) Urine Ketones Urine Occult Blood Urine Nitrite Urine Bilirubin Urine Urobilinogen Ur Leukocyte Esterase Ur Microscopic Review Urine Culture Comments 03/16/22 18:19 WBC RBC Hgb Hct MCV MCH MCHC RDW Plt Count MPV Neut # (Auto) Lymph # (Auto) [place] # (Auto) Eos # (Auto) Baso # (Auto) Absolute Nucleated RBC Nucleated RBC % PT INR APTT Sodium Potassium Chloride Carbon Dioxide Anion Gap BUN Creatinine Estimated GFR (MDRD) Glucose Calcium Total Bilirubin AST ALT Alkaline Phosphatase Total Protein Albumin Globulin Albumin/Globulin Ratio Lipase Urine Color YELLOW Urine Clarity CLEAR Urine pH 6.0 Ur Specific [place] 1.025 Urine Protein NEGATIVE Urine Glucose (UA) >=1000 H Urine Ketones NEGATIVE Urine Occult Blood NEGATIVE Urine Nitrite NEGATIVE Urine Bilirubin NEGATIVE Urine Urobilinogen 0.2 (NORMAL) Ur Leukocyte Esterase NEGATIVE Ur Microscopic Review NOT INDICATED Urine Culture Comments NOT INDICATED - Rads (name of study) CT abd.pelvis Radiology: Final report received, EMP read contemporaneously, See rad report PD MEDICAL DECISION MAKING - ED course Complexity details: reviewed results, re-evaluated patient, considered differential, d/w patient ED course: Patient with abdominal and pelvic ascites. Has a history of primary biliary cirrhosis. She is not currently seeing a air sealing technician. We will start her on a low-dose of Lasix and have her follow-up with her doctor for further care. She did have a colonoscopy 2 years ago that showed rectal varices, likely the thickened appearance of the rectum on CT. Have her recommend following up with her doctor to discuss colonoscopy. Patient is otherwise well-appearing, nontoxic. Afebrile. Tolerating p.o. without difficulty. Patient counseled regarding signs and symptoms for which I believe and urgent re-evaluation would be necessary. Patient with good understanding of and agreement to plan and is comfortable going home at this time This document was made in part using voice recognition software. While efforts are made to proofread this document, sound alike and grammatical errors may occur. IMPRESSION: Soft tissue anasarca. Abdominal and pelvic ascites. Diverticulosis. Diffusely thickened appearance at the rectum. Underlying mass cannot be excluded and further evaluation with colonoscopy is recommended. Departure - Departure Disposition: 01 Home, Self Care Clinical Impression: Liver cirrhosis Qualifiers: Hepatic cirrhosis type: unspecified hepatic cirrhosis Ascites presence: with ascites Qualified Code(s): K74.60 - Unspecified cirrhosis of liver Condition: Good Instructions: ED Ascites, ED Cirrhosis Liver Follow-Up: Lindsey Baez PA-C [Primary Care Provider] - Within 1 week Prescriptions: Furosemide [Lasix] 20 mg PO DAILY #7 tablet Comments: Your CT scan shows ascites today. This is fluid collected in your abdomen from your liver disease. You need to follow-up with your doctor closely for further care, likely be started on diuretics and be followed closely by a liver specialist. You also need a repeat colonoscopy. Your CT findings are below. Your prescription was sent to [facility] in [place]. IMPRESSION: Soft tissue anasarca. Abdominal and pelvic ascites. Diverticulosis. Diffusely thickened appearance at the rectum. Underlying mass cannot be excluded and further evaluation with colonoscopy is recommended. Discharge Date/Time: 03/16/22 19:59
[2022-03-16 17:32] LABS: BASOPHILS # (AUTO) 0.1 10^3/uL (0.0-0.1); EOSINOPHILS # (AUTO) 0.1 10^3/uL (0.0-0.7); EOSINOPHILS % (AUTO) 2.7 %; HCT - HEMATOCRIT 33.8 % (37.0-47.0); HGB - HEMOGLOBIN 10.7 g/dL (12.0-16.0); LYMPHOCYTES % (AUTO) 41.6 %; MEAN CORPUSCULAR HGB CONC 31.7 g/dL (32.0-36.0); MEAN CORPUSCULAR VOLUME 85.4 fL (81.0-99.0); MEAN PLATELET VOLUME 10.7 fL (7.9-10.8); MONOCYTES # (AUTO) 0.4 10^3/uL (0.0-1.0); MONOCYTES % (AUTO) 7.5 %; NEUTROPHILS # (AUTO) 2.3 10^3/uL (1.5-6.6); NEUTROPHILS % (AUTO) 47.2 %; PLT - PLATELET COUNT 85 10^3/uL (130-450); RED BLOOD COUNT 3.96 10^6/uL (4.20-5.40); RED CELL DISTRIBUTION WIDTH 17.9 % (12.0-15.0); WHITE BLOOD COUNT 4.8 x10^3/uL (4.8-10.8)
[2022-03-16 17:36] LABS: INR 1.1 (0.8-1.2); PT - PROTHROMBIN TIME 12.7 secs (9.9-12.6)
[2022-03-16 17:43] LABS: PARTIAL THROMBOPLASTIN TIME 31.1 secs (24.9-33.3)
[2022-03-16 17:46] LABS: ALBUMIN 3.5 g/dL (3.2-5.5); ALBUMIN/GLOBULIN RATIO 1.1 (1.0-2.2); BILIRUBIN,TOTAL 0.8 mg/dL (0.2-1.0); CALCIUM 8.7 mg/dL (8.5-10.3); CREATININE 0.6 mg/dL (0.4-1.0); POTASSIUM 3.7 mmol/L (3.5-5.0); TOTAL PROTEIN 6.8 g/dL (6.7-8.2)
[2022-03-16] MEDS ORDERED: iohexoL-300 100 ML VIAL ONE (17:46)
[2022-03-16 18:26] LABS: BILIRUBIN,URINE NEGATIVE (NEGATIVE); GLUCOSE, URINE (UA) >=1000 mg/dL (NEGATIVE); KETONES,URINE (UA) NEGATIVE (NEGATIVE); LEUKOCYTE ESTERASE, URINE NEGATIVE (NEGATIVE); NITRITE,URINE NEGATIVE (NEGATIVE); OCCULT BLOOD,URINE NEGATIVE (NEGATIVE); PROTEIN,URINE NEGATIVE (NEGATIVE); UROBILINOGEN,URINE 0.2 (NORMAL) E.U./dL (NORMAL)
[2022-03-16 18:27] LABS: CLARITY,URINE CLEAR (CLEAR)
[2022-03-16] MEDS ORDERED: iohexoL-300 100 ML VIAL IVP ONE (18:44)
--- NOTE | 2022-03-16 18:57 | CT Report ---
PROCEDURE: ABDOMEN/PELVIS W INDICATIONS: diffuse abd pain, swelling CONTRAST: 100ml omni 300 TECHNIQUE: After the administration of IV contrast, 5 mm thick sections acquired from the diaphragms to the symp hysis. 5 mm thick coronal and sagittal reformats were acquired. For radiation dose reduction, the f ollowing was used: automated exposure control, adjustment of mA and/or kV according to patient size. COMPARISON: None. FINDINGS: Image quality: Excellent. ABDOMEN: Lung bases: Lung bases are clear. Heart size is normal. Solid organs: Liver is normal size and enhancement. Hepatic steatosis is present. Spleen is mildly enlarged measuring 15.6 cm. Gallbladder has been removed Biliary system is non dilated. Pancreas en hances normally. No adrenal nodules. Kidneys demonstrate normal size and enhancement, without hydro nephrosis. Peritoneum and bowel: Bowel loops are nonobstructed. There is a mild thickened appearance of the rec cristina which is more prominent when compared to prior exam.. Colonic diverticula are present without celeste reciable inflammatory change. There is diffuse appearance of stranding within the mesenteric fat. Per ihepatic and perisplenic fluid are present to a mild degree with mild fluid in the paracolic gutter. Dependent pelvic fluid is present. Nodes and vessels: No retroperitoneal or mesenteric adenopathy by size criteria. Aorta and inferior vena cava are normal in size. Miscellaneous: No ventral hernias. Subcutaneous stranding most suggestive of anasarca is present. PELVIS: Genitourinary: Bladder wall thickness is normal. Miscellaneous: No inguinal hernias or adenopathy. Bones: No suspicious bony lesions. No vertebral body compression fractures. IMPRESSION: Soft tissue anasarca. Abdominal and pelvic ascites. Diverticulosis. Diffusely thickened appearance at the rectum. Underlying mass cannot be excluded and further evaluati on with colonoscopy is recommended. Reviewed by: Nilda Calderon MD on 03/16/2022 6:55 PM PST Approved by: Nilda Calderon MD on 03/16/2022 6:55 PM PST Station ID: [id number]
[2022-03-16] MEDS ORDERED: FUROSEMIDE 20 MG TABLET PO STA (19:20)
[2022-03-16 19:58] VITALS: BP 130/72
== END 2022-03-16 19:59 | disposition home or self-care (01) ==
LOC: ED 16:57
DX: K70.31 Alcoholic cirrhosis of liver with ascites (principal)
CPT/HCPCS: 36415; 74177; 80053; 81003; 83690; 85025; 85610; 85730; 99284; A9270; Q9967; 81001; 87086

== ENCOUNTER 2022-03-28 09:43 | Outpatient (CLI) | payer MEDICARE, OTHER ==
[2022-03-28 12:41] LABS: BASOPHILS % (AUTO) 0.7 %; EOSINOPHILS # (AUTO) 0.1 10^3/uL (0.0-0.7); EOSINOPHILS % (AUTO) 1.2 %; HCT - HEMATOCRIT 32.5 % (37.0-47.0); HGB - HEMOGLOBIN 10.5 g/dL (12.0-16.0); LYMPHOCYTES # (AUTO) 1.6 10^3/uL (1.5-3.5); LYMPHOCYTES % (AUTO) 38.5 %; MEAN CORPUSCULAR HEMOGLOBIN 27.9 pg (27.0-31.0); MEAN CORPUSCULAR HGB CONC 32.3 g/dL (32.0-36.0); MEAN CORPUSCULAR VOLUME 86.4 fL (81.0-99.0); MEAN PLATELET VOLUME 11.7 fL (7.9-10.8); MONOCYTES # (AUTO) 0.3 10^3/uL (0.0-1.0); MONOCYTES % (AUTO) 7.5 %; NEUTROPHILS # (AUTO) 2.2 10^3/uL (1.5-6.6); NEUTROPHILS % (AUTO) 51.9 %; PLT - PLATELET COUNT 110 10^3/uL (130-450); RED BLOOD COUNT 3.76 10^6/uL (4.20-5.40); RED CELL DISTRIBUTION WIDTH 17.9 % (12.0-15.0); WHITE BLOOD COUNT 4.3 x10^3/uL (4.8-10.8)
[2022-03-28 12:46] LABS: ALBUMIN 3.6 g/dL (3.2-5.5); BILIRUBIN,TOTAL 0.9 mg/dL (0.2-1.0); CALCIUM 8.6 mg/dL (8.5-10.3); CREATININE 0.5 mg/dL (0.4-1.0); POTASSIUM 3.5 mmol/L (3.5-5.0); TOTAL PROTEIN 7.2 g/dL (6.7-8.2)
[2022-03-28 13:35] LABS: ESTIMATED AVERAGE GLUCOSE 263 mg/dL (70-100); HEMOGLOBIN A1c% 10.8 % (4.27-6.07)
[2022-03-28 13:40] LABS: INR 1.1 (0.8-1.2); PT - PROTHROMBIN TIME 12.1 secs (9.9-12.6)
[2022-03-28 13:47] LABS: PARTIAL THROMBOPLASTIN TIME 31.4 secs (24.9-33.3)
== END 2022-03-28 09:44 | disposition home or self-care (01) ==
LOC: LAB.N 09:43
PROVIDERS: ATTEND Physician Assistant Medical
DX: E11.9 Type 2 diabetes mellitus without complications (principal); K73.9 Chronic hepatitis, unspecified; R18.8 Other ascites
CPT/HCPCS: 36415; 80053; 83036; 85025; 85610; 85730

== ENCOUNTER 2022-07-20 08:34 | Outpatient (CLI) | payer MEDICARE, OTHER ==
[2022-07-20 12:06] LABS: ESTIMATED AVERAGE GLUCOSE 355 mg/dL (70-100)
[2022-07-20 12:13] LABS: CREATININE 0.5 mg/dL (0.4-1.0); POTASSIUM 3.9 mmol/L (3.5-5.0)
== END 2022-07-20 08:35 | disposition home or self-care (01) ==
LOC: LAB.N 08:34
PROVIDERS: ATTEND Physician Assistant Medical
DX: E11.9 Type 2 diabetes mellitus without complications (principal)
CPT/HCPCS: 36415; 80048; 83036

== ENCOUNTER 2023-01-04 08:06 | Outpatient (CLI) | payer MEDICARE, OTHER ==
[2023-01-04 13:19] LABS: ALBUMIN 3.9 g/dL (3.2-5.5); ALBUMIN/GLOBULIN RATIO 1.3 (1.0-2.2); ALKALINE PHOSPHATASE 319 IU/L (42-121); ALT ALANINE AMINOTRANSFERASE 36 IU/L (10-60); AST ASPARTATE AMINOTRANSFERASE 38 IU/L (10-42); BILIRUBIN,TOTAL 0.8 mg/dL (0.2-1.0); BUN - BLOOD UREA NITROGEN 14 mg/dL (6-20); CALCIUM 9.4 mg/dL (8.5-10.3); CARBON DIOXIDE - CO2 27 mmol/L (21-32); CHLORIDE 101 mmol/L (101-111); CHOL/HDL RATIO 4.2 (<4.4); CHOLESTEROL 248 mg/dL; CREATININE 0.6 mg/dL (0.6-1.3); GFR - MDRD 99 (>89); GLUCOSE 361 mg/dL (74-104); HDL CHOLESTEROL 59 mg/dL; POTASSIUM 4.4 mmol/L (3.5-4.5); SODIUM 134 mmol/L (135-145); TOTAL PROTEIN 6.9 g/dL (6.4-8.9); TRIGLYCERIDES 507 mg/dL (48-352)
[2023-01-04 13:22] LABS: ESTIMATED AVERAGE GLUCOSE 344 mg/dL (70-100); HEMOGLOBIN A1c% 13.6 % (4.27-6.07)
[2023-01-04 14:11] LABS: LDL CHOLESTEROL,DIRECT 134 mg/dL (75-193); LDLD/HDL RATIO 2.3 (<4.4)
== END 2023-01-04 08:07 | disposition home or self-care (01) ==
LOC: LAB.N 08:06
PROVIDERS: ATTEND Physician Assistant Medical
DX: E11.9 Type 2 diabetes mellitus without complications (principal)
CPT/HCPCS: 36415; 80053; 80061; 83036; 83721

== ENCOUNTER 2023-05-03 08:04 | Outpatient (CLI) | payer MEDICARE, OTHER ==
[2023-05-03 12:20] LABS: ESTIMATED AVERAGE GLUCOSE 318 mg/dL (70-100); HEMOGLOBIN A1c% 12.7 % (4.27-6.07)
[2023-05-03 13:01] LABS: CALCIUM 9.2 mg/dL (8.5-10.3); CREATININE 0.6 mg/dL (0.6-1.3)
== END 2023-05-03 08:05 | disposition home or self-care (01) ==
LOC: LAB.N 08:04
PROVIDERS: ATTEND Physician Assistant Medical
DX: E11.9 Type 2 diabetes mellitus without complications (principal)
CPT/HCPCS: 36415; 80048; 83036

== ENCOUNTER 2023-05-27 16:40 | Emergency (ER) | payer MEDICARE, OTHER ==
[2023-05-27 17:07] LABS: BASOPHILS % (AUTO) 0.5 %; EOSINOPHILS # (AUTO) 0.1 10^3/uL (0.0-0.7); EOSINOPHILS % (AUTO) 2.2 %; HCT - HEMATOCRIT 40.7 % (37.0-47.0); HGB - HEMOGLOBIN 13.4 g/dL (12.0-16.0); LYMPHOCYTES # (AUTO) 1.3 10^3/uL (1.5-3.5); LYMPHOCYTES % (AUTO) 31.5 %; MEAN CORPUSCULAR HEMOGLOBIN 28.6 pg (27.0-31.0); MEAN CORPUSCULAR HGB CONC 32.9 g/dL (32.0-36.0); MEAN PLATELET VOLUME 12.3 fL (7.9-10.8); MONOCYTES # (AUTO) 0.4 10^3/uL (0.0-1.0); MONOCYTES % (AUTO) 8.9 %; NEUTROPHILS # (AUTO) 2.4 10^3/uL (1.5-6.6); NEUTROPHILS % (AUTO) 56.7 %; PLT - PLATELET COUNT 71 10^3/uL (130-450); RED BLOOD COUNT 4.68 10^6/uL (4.20-5.40); RED CELL DISTRIBUTION WIDTH 13.4 % (12.0-15.0); WHITE BLOOD COUNT 4.2 x10^3/uL (4.8-10.8)
--- NOTE | 2023-05-27 17:09 | XRAY Report ---
PROCEDURE: Chest 1V INDICATIONS: Chest Pain TECHNIQUE: One view of the chest was acquired. COMPARISON: CXR 02/16/2020. FINDINGS: Surgical changes and devices: Cholecystectomy clips. Clips in the left upper abdomen. Lungs and pleura: No pleural effusions or pneumothorax. Lungs are clear. Mediastinum: Mediastinal contours appear normal. Heart size is normal. Bones and chest wall: No suspicious bony lesions. Overlying soft tissues appear unremarkable. IMPRESSION: No acute cardiopulmonary process. Reviewed by: Yemi Ratliff MD on 05/27/2023 5:07 PM PST Approved by: Yemi Ratliff MD on 05/27/2023 5:07 PM PST Station ID: [id number]
[2023-05-27 17:27] LABS: ALBUMIN/GLOBULIN RATIO 1.1 (1.0-2.2); CALCIUM 10.2 mg/dL (8.5-10.3); CREATININE 0.6 mg/dL (0.6-1.3); POTASSIUM 4.2 mmol/L (3.5-4.5); TOTAL PROTEIN 7.6 g/dL (6.4-8.9)
[2023-05-27 17:29] LABS: TROPONIN I HIGH SENSITIVITY 241.5 ng/L (2.3-14.8)
[2023-05-27] MEDS ORDERED: ASPIRIN CHEW 81 MG TABLET PO STA (19:21)
[2023-05-27] MEDS ORDERED: ENOXAPARIN 60 MG/0.6 ML SYRINGE SUBQ STA (19:22)
--- NOTE | 2023-05-27 19:22 | ED Physician Documentation ---
History of Present Illness - Stated complaint Stated Complaint: CHEST PX/LT ARM PX/ORDONEZ - Chief complaint Chief Complaint: Cardiac - History obtained from History obtained from: Patient, Family - History of Present Illness Timing: Today Pain level max: 5 Pain level now: 0 - Additonal information Additional information: 73-year-old female history of cirrhosis of the liver, presents to the emergency department with 2 hours of substernal chest pain radiating to left arm. This resolved approximately 2 hours prior to arrival. No cardiac history. No shortness of breath. No nausea, vomiting, sweating. No difficulty breathing. Has not had similar symptoms previously. Denies any history of cardiac issues. Nothing made it better or worse. She went to her PCPs office and then was sent here for evaluation. Review of Systems Constitutional: denies: Fever, Chills Cardiac: denies: Palpitations Respiratory: denies: Cough, Wheezing GI: denies: Vomiting, Diarrhea Skin: denies: Rash Musculoskeletal: denies: Neck pain, Back pain Neurologic: denies: Headache PD PAST MEDICAL HISTORY - Past Medical History Past Medical History: Yes Cardiovascular: None Respiratory: None Neuro: Head injury, Headaches Endocrine/Autoimmune: Type 2 diabetes, HyPOthyroidism GI: Esophageal varices, Hepatitis, Cirrhosis, Other : Other HEENT: None Psych: None Musculoskeletal: Osteoarthritis Derm: None - Past Surgical History Past Surgical History: Yes General: Cholecystectomy, Colonoscopy 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 HEENT: Other - Present Medications Home Medications: Ambulatory Orders Medication Instructions Recorded Confirmed Ursodiol [Zafar Forte] 500 mg PO TID 09/30/12 05/27/23 Levothyroxine Sodium [Synthroid] 150 mcg PO QDAC 02/16/20 05/27/23 Furosemide [Lasix] 20 mg PO DAILY #7 tablet 03/16/22 05/27/23 Insulin Aspart [NovoLOG] 15 unit SUBQ TIDWM 05/27/23 05/27/23 Insulin Glargine [Lantus Solostar] 35 unit SUBQ HS 05/27/23 05/27/23 Omeprazole 40 mg PO DAILY 05/27/23 05/27/23 Spironolactone [Aldactone] 25 mg PO DAILY 05/27/23 05/27/23 nadoloL [Corgard] 20 mg PO DAILY 05/27/23 05/27/23 - Allergies Allergies/Adverse Reactions: Allergies Allergy/AdvReac Type Severity Reaction Status Date / Time No Known Drug Allergies Allergy Verified 05/27/23 16:47 - Social History Does the pt smoke?: No Smoking Status: Never smoker Does the pt drink ETOH?: No Does the pt have substance abuse?: No - Immunizations Immunizations are current?: Yes - POLST Patient has POLST: Yes PD ED PE NORMAL - Vitals Vital signs reviewed: Yes - General General: Alert and oriented X 3, No acute distress - HEENT HEENT: Moist mucous membranes - Neck Neck: Supple, no meningeal sign - Cardiac Cardiac: RRR, Strong equal pulses - Respiratory Respiratory: No respiratory distress, Clear bilaterally - Abdomen Abdomen: Soft, Non tender, Non distended - Derm Derm: Warm and dry - Extremities Extremities: No edema - Neuro Neuro: Alert and oriented X 3 - Psych Psych: Normal mood, Normal affect Results - Vitals Vitals: Vital Signs - 24 hr 05/27/23 05/27/23 05/27/23 16:47 18:31 20:00 Temperature 36.8 C Heart Rate 83 73 71 Respiratory 16 14 16 Rate Blood Pressure 147/77 H 145/68 H 119/74 O2 Saturation 100 97 98 Oxygen O2 Source Room air - EKG (time done) 1652 EKG releavant findings:: EKG personally interpreted by author of this note. Relevant findings are: Rate: Rate (enter#) (78) Rhythm: NSR [place]: Normal Intervals: Normal MO QRS: Normal Ischemia: Normal ST segments, Q waves (III, aVF) - Labs Labs: Laboratory Tests 05/27/23 05/27/23 05/27/23 17:04 17:04 19:29 WBC 4.2 L RBC 4.68 Hgb 13.4 Hct 40.7 MCV 87.0 MCH 28.6 MCHC 32.9 RDW 13.4 Plt Count 71 L MPV 12.3 H Neut # (Auto) 2.4 Lymph # (Auto) 1.3 L [place] # (Auto) 0.4 Eos # (Auto) 0.1 Baso # (Auto) 0.0 Absolute Nucleated RBC 0.00 Nucleated RBC % 0.0 PT INR APTT Sodium 134 L Potassium 4.2 Chloride 98 L Carbon Dioxide 32 Anion Gap 4.0 L BUN 12 Creatinine 0.6 Estimated GFR (MDRD) 99 Glucose 373 H Calcium 10.2 Total Bilirubin 1.0 AST 36 ALT 38 Alkaline Phosphatase 293 H Troponin I High Sens 241.5 H* 477.2 H* Total Protein 7.6 Albumin 4.0 Globulin 3.6 Albumin/Globulin Ratio 1.1 Lipase 48 05/27/23 21:37 WBC RBC Hgb Hct MCV MCH MCHC RDW Plt Count MPV Neut # (Auto) Lymph # (Auto) [place] # (Auto) Eos # (Auto) Baso # (Auto) Absolute Nucleated RBC Nucleated RBC % PT 12.2 INR 1.1 APTT 28.7 Sodium Potassium Chloride Carbon Dioxide Anion Gap BUN Creatinine Estimated GFR (MDRD) Glucose Calcium Total Bilirubin AST ALT Alkaline Phosphatase Troponin I High Sens Total Protein Albumin Globulin Albumin/Globulin Ratio Lipase - Rads (name of study) cxr Relevant Findings:: Final report received, See rad report PD Medical Decision Making - ED course Complexity details: reviewed results, re-evaluated patient, considered differential, d/w patient, d/w family ED course: 73-year-old female with typical cardiac chest pain earlier today. Her initial high-sensitivity troponin was elevated, repeat 2 hours later had nearly doubled. Patient was started on aspirin and heparin. Does have a history of liver cirrhosis and states that she has had bleeding hemorrhoids in the past, she will be monitored closely for bleeding in the emergency department and the heparin will be stopped if any bleeding is noted. She is not having any chest pain currently. Denies any prior cardiac history. There are no beds available in the region [facility]. She was placed on the wait list with [facility]. Patient will be signed out to Dr. Edouard for care overnight pending transfer. This document was made in part using voice recognition software. While efforts are made to proofread this document, sound alike and grammatical errors may occur. Departure - Departure Disposition: 02 Transfer Acute Care Hosp Clinical Impression: NSTEMI (non-ST elevated myocardial infarction) Liver cirrhosis Qualifiers: Hepatic cirrhosis type: unspecified hepatic cirrhosis Ascites presence: without ascites Qualified Code(s): K74.60 - Unspecified cirrhosis of liver Condition: Stable Forms: PCP List
[2023-05-27] MEDS ORDERED: HEPARIN 25000UNITS/500ML (D5W) 25,000 UNIT/500 ML BAG IV SCH (21:00)
[2023-05-27] MEDS ORDERED: ONDANSETRON 4 MG/2 ML VIAL IVP PRN (21:26)
[2023-05-27] MEDS ORDERED: ACETAMINOPHEN 500 MG TABLET PO PRN (21:26)
[2023-05-27 21:50] LABS: PARTIAL THROMBOPLASTIN TIME 28.7 secs (24.9-33.3)
[2023-05-27 21:54] LABS: INR 1.1 (0.8-1.2); PT - PROTHROMBIN TIME 12.2 secs (9.9-12.6)
[2023-05-27 22:55] LABS: B. PARAPERTUSSIS- RESP PCR PAN NOT DETECTED; B. PERTUSSIS- RESP PCR PANEL NOT DETECTED; C. PNEUMONIAE- RESP PCR PANEL NOT DETECTED; CORONAVIRUS 229E-RESP PCR NOT DETECTED; CORONAVIRUS HKU1-RESP PCR NOT DETECTED; CORONAVIRUS NL63-RESP PCR NOT DETECTED; CORONAVIRUS OC43-RESP PCR NOT DETECTED; HUMAN METAPNEUMOVIRUS NOT DETECTED; INFLUENZA A- RESP PCR PANEL NOT DETECTED; INFLUENZA B - RESP PCR PANEL NOT DETECTED; M. PNEUMONIAE- RESP PCR PANEL NOT DETECTED; PARAINFLUENZA VIRUS 1 NOT DETECTED; PARAINFLUENZA VIRUS 2 NOT DETECTED; PARAINFLUENZA VIRUS 3 NOT DETECTED; PARAINFLUENZA VIRUS 4 NOT DETECTED; RHINOVIRUS/ENTEROVIRUS NOT DETECTED; RSV- RESP PCR PANEL NOT DETECTED; SARS-CoV-2 -RESP PCR PANEL NOT DETECTED
--- NOTE | 2023-05-28 02:04 | ED Physician Documentation ---
ED Addendum - Addendum Addendum: 05/28/23 02:01 I received signout/turnover of care on this patient from Dr. Mayer; please see his note for complete H&P. At approximately 01:50, I was put in touch with Dr. Hay (cardiology on- call at [place]). He agrees patient is appropriate for transfer to [facility], he recommends hospitalist service. At this time, there are no beds available at [facility], but they are anticipating discharges later this morning and thus fair confidence that patient will be able to be transferred later this morning. 05/28/23 02:26 I was put in touch with Dr. Jiang (hospitalist at [facility]). She agrees patient is appropriate for transfer to [facility] to the hospitalist service. She recommends 80 mg atorvastatin p.o., 25 mg metoprolol tartrate twice daily (I entered these orders accordingly). Even though patient did not eat any dinner, Dr. Jiang also recommends patient receive her usual nighttime Lantus insulin but at half-dose (patient usually takes 35 units, and, rounding down, I have ordered 15 units).
[2023-05-28] MEDS ORDERED: ATORVASTATIN 40 MG TABLET PO STA (02:19)
[2023-05-28] MEDS ORDERED: INSULIN GLARGINE-YFGN 300 UNIT/3 ML PEN SUBQ STA (02:22)
[2023-05-28 05:50] LABS: BASOPHILS % (AUTO) 0.5 %; EOSINOPHILS # (AUTO) 0.1 10^3/uL (0.0-0.7); EOSINOPHILS % (AUTO) 3.6 %; HCT - HEMATOCRIT 34.2 % (37.0-47.0); HGB - HEMOGLOBIN 11.7 g/dL (12.0-16.0); LYMPHOCYTES # (AUTO) 2.2 10^3/uL (1.5-3.5); LYMPHOCYTES % (AUTO) 58.9 %; MEAN CORPUSCULAR HEMOGLOBIN 29.5 pg (27.0-31.0); MEAN CORPUSCULAR HGB CONC 34.2 g/dL (32.0-36.0); MEAN CORPUSCULAR VOLUME 86.1 fL (81.0-99.0); MEAN PLATELET VOLUME 12.4 fL (7.9-10.8); MONOCYTES # (AUTO) 0.4 10^3/uL (0.0-1.0); MONOCYTES % (AUTO) 10.1 %; NEUTROPHILS % (AUTO) 26.9 %; PLT - PLATELET COUNT 61 10^3/uL (130-450); RED BLOOD COUNT 3.97 10^6/uL (4.20-5.40); RED CELL DISTRIBUTION WIDTH 13.4 % (12.0-15.0); WHITE BLOOD COUNT 3.7 x10^3/uL (4.8-10.8)
[2023-05-28 06:02] LABS: CALCIUM 9.3 mg/dL (8.5-10.3); CREATININE 0.4 mg/dL (0.6-1.3); POTASSIUM 3.4 mmol/L (3.5-4.5)
[2023-05-28] MEDS ORDERED: PANTOPRAZOLE 40 MG TABLET PO SCH (07:00)
[2023-05-28] MEDS ORDERED: METOPROLOL TARTRATE 25 MG TABLET PO SCH (09:00)
[2023-05-28] MEDS ORDERED: ASPIRIN CHEW 81 MG TABLET PO SCH (09:00)
[2023-05-28] MEDS ORDERED: INSULIN REGULAR HUMAN 300 UNIT/3 ML VIAL SUBQ SCH (12:00)
--- NOTE | 2023-05-28 13:35 | ED Physician Documentation ---
ED Addendum - Addendum Addendum: 05/28/23 13:35 Patient is excepted to [facility] in [place]. COBRA forms completed. Patient transferred Departure - Departure Disposition: 02 Transfer Acute Care Hosp Clinical Impression: NSTEMI (non-ST elevated myocardial infarction) Liver cirrhosis Qualifiers: Hepatic cirrhosis type: unspecified hepatic cirrhosis Ascites presence: without ascites Qualified Code(s): K74.60 - Unspecified cirrhosis of liver Condition: Stable Forms: PCP List
[2023-05-28 15:25] VITALS: BP 108/61; O2SAT 98
== END 2023-05-28 15:53 | disposition short-term general hospital (02) ==
LOC: ED 16:40
DX: I21.4 Non-ST elevation (NSTEMI) myocardial infarction (principal); K74.60 Unspecified cirrhosis of liver; E11.9 Type 2 diabetes mellitus without complications; Z79.4 Long term (current) use of insulin
CPT/HCPCS: 36415; 71045; 80048; 80053; 83690; 84484; 85025; 85610; 85730; 87633; 93005; 93307; 96365; 96366; 96376; 99285; A9270; J1815

== ENCOUNTER 2023-07-17 14:48 | Outpatient (CLI) | payer MEDICARE, OTHER | END 2023-07-17 14:49 | disposition home or self-care (01) | LOC: DI.N 14:48 | PROVIDERS: ATTEND Specialist | DX: Z53.9 Procedure and treatment not carried out, unspecified reason (principal) ==

== ENCOUNTER 2023-07-17 15:20 | Outpatient (CLI) | payer MEDICARE, OTHER ==
--- NOTE | 2023-07-17 16:43 | XRAY Report ---
PROCEDURE: Foot 1-2V RT INDICATIONS: FOOT PAIN,RIGHT TECHNIQUE: 3 views of the foot were acquired. COMPARISON: None. FINDINGS: Bones: No fractures or dislocations. No suspicious bony lesions. Scattered areas of moderate IP de generative narrowing. There is nondisplaced lucency at the base of the first distal phalanx. Lucency extends into the joint space. Soft tissues: No tibiotalar joint effusion. Achilles tendon appears normal. IMPRESSION: Nondisplaced first distal phalanx fracture. Reviewed by: Nilda Calderon MD on 07/17/2023 4:42 PM PDT Approved by: Nilda Calderon MD on 07/17/2023 4:42 PM PDT Station ID: [id number]
--- NOTE | 2023-07-17 16:44 | DEXA Report ---
PROCEDURE: Dexa Spine and/or Hip INDICATIONS: POST MENOPAUSAL TECHNIQUE: Dual energy x-ray absorptiometry (DXA) was performed on a [employer]isa System. Regions measur ed are the AP Spine, femoral neck, and if needed forearm. COMPARISON: None FINDINGS: Lumbar Spine: Bone Mineral Density: 1.2 g/cm/cm,T score: 0.2. Left Femoral Neck: Bone Mineral Density: 0.806 g/cm/cm, T score: -1.7. Left Hip: Bone Mineral Density: 0.854 g/cm/cm,T score: -1.2. (T score greater or equal to -1.0: NORMAL) (T score from -1.1 to -2.4: OSTEOPENIA) (T score less than or equal to -2.5 to: OSTEOPOROSIS) Impression: By WHO criteria, this patient has osteopenia most prominent in the left femoral neck. Patients with diagnosis of osteoporosis or osteopenia should have regular bone mineral density assess ment. For those eligible for Medicare, routine testing is allowed once every 2 years. Testing frequ ency can be increased for patients who have rapidly progressing disease or for those who are receivin g medical therapy to restore bone mass. Reviewed by: Nilda Calderon MD on 07/17/2023 4:43 PM PDT Approved by: Nilda Calderon MD on 07/17/2023 4:43 PM PDT Station ID: [id number]
== END 2023-07-17 15:21 | disposition home or self-care (01) ==
LOC: DI 15:20
PROVIDERS: ATTEND Physician Assistant Medical
DX: M85.89 Other specified disorders of bone density and structure, multiple sites (principal); Z78.0 Asymptomatic menopausal state; S92.534A Nondisplaced fracture of distal phalanx of right lesser toe(s), initial encounter for closed fracture

== ENCOUNTER 2023-07-23 13:00 | Outpatient (CLI) | payer MEDICARE, OTHER ==
--- NOTE | 2023-07-23 20:49 | XRAY Report ---
PROCEDURE: Foot 3 View RT INDICATIONS: RIGHT FOOT PAIN TECHNIQUE: 3 views of the foot were obtained. COMPARISON: None FINDINGS: Bones: No fractures or dislocations. No suspicious bony lesions. Moderate calcaneal spur Soft tissues: Unremarkable. No radiopaque foreign body. IMPRESSION: Moderate calcaneal spur Reviewed by: Moe Hauser MD on 07/23/2023 7:48 PM AKDT Approved by: Moe Hauser MD on 07/23/2023 7:48 PM AKDT Station ID: [id number]
== END 2023-07-23 23:59 | disposition home or self-care (01) ==
LOC: DI.WOS 13:00
PROVIDERS: ATTEND Orthopaedic Surgery
DX: M77.31 Calcaneal spur, right foot (principal)

== ENCOUNTER 2023-08-09 07:28 | Outpatient (CLI) | payer MEDICARE, OTHER ==
[2023-08-09 12:48] LABS: ESTIMATED AVERAGE GLUCOSE 217 mg/dL (70-100); HEMOGLOBIN A1c% 9.2 % (4.27-6.07)
[2023-08-09 12:53] LABS: ALBUMIN 3.9 g/dL (3.2-5.5); ALBUMIN/GLOBULIN RATIO 1.1 (1.0-2.2); ALKALINE PHOSPHATASE 236 IU/L (42-121); ALT ALANINE AMINOTRANSFERASE 22 IU/L (10-60); AST ASPARTATE AMINOTRANSFERASE 39 IU/L (10-42); BILIRUBIN,TOTAL 1.3 mg/dL (0.2-1.0); BUN - BLOOD UREA NITROGEN 11 mg/dL (6-20); CALCIUM 9.8 mg/dL (8.5-10.3); CARBON DIOXIDE - CO2 26 mmol/L (21-32); CHLORIDE 105 mmol/L (101-111); CHOL/HDL RATIO 2.8 (<4.4); CHOLESTEROL 142 mg/dL; CREATININE 0.5 mg/dL (0.6-1.3); GFR - MDRD 122 (>89); GLUCOSE 157 mg/dL (74-104); HDL CHOLESTEROL 51 mg/dL; LDL CHOLESTEROL,CALCULATED 60 mg/dL; LDL/HDL RATIO 1.2 (<4.4); POTASSIUM 3.8 mmol/L (3.5-4.5); SODIUM 138 mmol/L (135-145); TOTAL PROTEIN 7.3 g/dL (6.4-8.9); TRIGLYCERIDES 156 mg/dL (48-352); VLDL CHOLESTEROL 31 mg/dL
[2023-08-09 13:02] LABS: THYROID STIMULATING HORMONE 0.01 uIU/mL (0.34-5.60)
== END 2023-08-09 07:29 | disposition home or self-care (01) ==
LOC: LAB.N 07:28
PROVIDERS: ATTEND Physician Assistant Medical
DX: E78.00 Pure hypercholesterolemia, unspecified (principal); E11.9 Type 2 diabetes mellitus without complications; E03.9 Hypothyroidism, unspecified
CPT/HCPCS: 36415; 80053; 80061; 83036; 83721; 84439; 84443

== ENCOUNTER 2023-09-03 10:42 | Outpatient (CLI) | payer MEDICARE, OTHER ==
--- NOTE | 2023-09-03 15:40 | XRAY Report ---
PROCEDURE: Toe(s) 2+V RT INDICATIONS: RIGHT TOE PAIN TECHNIQUE: 3 views of the toe(s) acquired. COMPARISON: X-ray foot 07/23/2023, 07/17/2023 FINDINGS: Bones: Previously noted lucency the base of the first distal phalanx is less prominent. Stable alignm ent. No suspicious bony lesions. Soft tissues: No suspicious soft tissue densities. IMPRESSION: Healing first fracture at the base of the first distal phalanx. Stable alignment. Reviewed by: Nilda Calderon MD on 09/03/2023 3:39 PM PDT Approved by: Nilda Calderon MD on 09/03/2023 3:39 PM PDT Station ID: [id number]
== END 2023-09-03 10:43 | disposition home or self-care (01) ==
LOC: DI 10:42
PROVIDERS: ATTEND Orthopaedic Surgery
DX: S92.421D Displaced fracture of distal phalanx of right great toe, subsequent encounter for fracture with routine healing (principal)

== ENCOUNTER 2023-11-02 15:21 | Emergency (ER) | payer MEDICARE, OTHER ==
[2023-11-02 15:51] LABS: BASOPHILS % (AUTO) 0.5 %; EOSINOPHILS # (AUTO) 0.1 10^3/uL (0.0-0.7); EOSINOPHILS % (AUTO) 3.8 %; HGB - HEMOGLOBIN 11.3 g/dL (12.0-16.0); LYMPHOCYTES # (AUTO) 1.7 10^3/uL (1.5-3.5); LYMPHOCYTES % (AUTO) 45.8 %; MEAN CORPUSCULAR HEMOGLOBIN 28.5 pg (27.0-31.0); MEAN CORPUSCULAR HGB CONC 32.3 g/dL (32.0-36.0); MEAN CORPUSCULAR VOLUME 88.4 fL (81.0-99.0); MEAN PLATELET VOLUME 12.4 fL (7.9-10.8); MONOCYTES # (AUTO) 0.4 10^3/uL (0.0-1.0); MONOCYTES % (AUTO) 10.7 %; NEUTROPHILS # (AUTO) 1.4 10^3/uL (1.5-6.6); NEUTROPHILS % (AUTO) 38.9 %; PLT - PLATELET COUNT 69 10^3/uL (130-450); RED BLOOD COUNT 3.96 10^6/uL (4.20-5.40); RED CELL DISTRIBUTION WIDTH 13.5 % (12.0-15.0); WHITE BLOOD COUNT 3.7 x10^3/uL (4.8-10.8)
[2023-11-02 16:18] LABS: ALBUMIN 3.7 g/dL (3.2-5.5); ALBUMIN/GLOBULIN RATIO 1.3 (1.0-2.2); BILIRUBIN,TOTAL 0.9 mg/dL (0.2-1.0); CALCIUM 10.2 mg/dL (8.5-10.3); CREATININE 0.6 mg/dL (0.6-1.3); POTASSIUM 4.2 mmol/L (3.5-4.5); TOTAL PROTEIN 6.6 g/dL (6.4-8.9)
[2023-11-02 16:20] LABS: TROPONIN I HIGH SENSITIVITY 2.3 ng/L (2.3-14.8)
--- NOTE | 2023-11-02 17:10 | XRAY Report ---
PROCEDURE: Chest 1V INDICATIONS: Chest pain TECHNIQUE: One view of the chest was acquired. COMPARISON: 05/27/2023. FINDINGS: Surgical changes and devices: None. Lungs and pleura: No pleural effusions or pneumothorax. Lungs are clear. Mediastinum: Mediastinal contours appear normal. Heart size is normal. Bones and chest wall: No suspicious bony lesions. Overlying soft tissues appear unremarkable. IMPRESSION: No acute cardiopulmonary process. Reviewed by: Jonathon Justin MD on 11/02/2023 4:08 PM TYRONE Approved by: Jonathon Justin MD on 11/02/2023 4:08 PM TYRONE Station ID: [id number]
--- NOTE | 2023-11-02 19:08 | ED Physician Documentation ---
PD HPI CHEST PAIN - Stated complaint Stated Complaint: CHEST PX. UPPER LEFT ARM PX - Chief complaint Chief Complaint: Cardiac - History obtained from History obtained from: Patient - Additional information Additional information: HPI from patient. Patient c/o chest pain, onset approximately 2 PM today while at home at rest, across anterior chest. Pain described as burning sensation and radiating down LUE. Lasted approximately 30 minutes and resolved by the time of this H+P. The episode was associated with diaphoresis, nausea but no vomiting. Denies h/o similar symptoms. Denies shortness of breath. Review of Systems Constitutional: reports: Sweats. denies: Fever, Chills Cardiac: reports: Chest pain / pressure. denies: Palpitations, Pedal edema, Calf pain Respiratory: reports: Reviewed and negative GI: reports: Nausea. denies: Abdominal Pain, Vomiting Musculoskeletal: denies: Extremity swelling PD PAST MEDICAL HISTORY - Past Medical History Cardiovascular: None, [place] Respiratory: None Neuro: Head injury, Headaches Endocrine/Autoimmune: Type 2 diabetes, HyPOthyroidism GI: Esophageal varices, Hepatitis, Cirrhosis, Other : Other HEENT: None Psych: None Musculoskeletal: Osteoarthritis Derm: None - Past Surgical History Past Surgical History: Yes General: Cholecystectomy, Colonoscopy Ortho: Other /[employer]: Hysterectomy HEENT: Other - Present Medications Home Medications: Ambulatory Orders Medication Instructions Recorded Confirmed Ursodiol [Zafar Forte] 500 mg PO BID 09/30/12 05/27/23 Levothyroxine Sodium [Synthroid] 150 mcg PO QDAC 02/16/20 05/27/23 Furosemide [Lasix] 20 mg PO DAILY #7 tablet 03/16/22 05/27/23 Insulin Aspart [NovoLOG] 15 unit SUBQ TIDWM 05/27/23 05/27/23 Insulin Glargine [Lantus Solostar] 35 unit SUBQ HS 05/27/23 05/27/23 Omeprazole 40 mg PO DAILY 05/27/23 05/27/23 Spironolactone [Aldactone] 25 mg PO DAILY 05/27/23 05/27/23 nadoloL [Corgard] 20 mg PO DAILY 05/27/23 05/27/23 - Allergies Allergies/Adverse Reactions: Allergies Allergy/AdvReac Type Severity Reaction Status Date / Time No Known Drug Allergies Allergy Verified 11/02/23 19:31 - Social History Does the pt smoke?: No Smoking Status: Never smoker Does the pt drink ETOH?: No Does the pt have substance abuse?: No - Immunizations Immunizations are current?: Yes - POLST Patient has POLST: Yes PD ED PE NORMAL - Vitals Vital signs reviewed: Yes - General General: Alert and oriented X 3, No acute distress, Well developed/nourished - HEENT HEENT: Moist mucous membranes - Neck Neck: Supple, no meningeal sign - Cardiac Cardiac: RRR, No murmur, No gallop, No rub - Respiratory Respiratory: No respiratory distress, Clear bilaterally - Abdomen Abdomen: Soft, Non tender - Derm Derm: Normal color, Warm and dry - Extremities Extremities: No edema - Neuro Neuro: Alert and oriented X 3 Results - Vitals Vitals: Oxygen O2 Source Room air - EKG (time done) No standard instances EKG releavant findings:: EKG personally interpreted by author of this note. Relevant findings are: Rate: Rate (enter#) (74) Rhythm: NSR [place]: LAD Intervals: Normal MN, QRS normal QRS: Normal Ischemia: Normal ST segments, Q waves (III, aVF) - Labs Labs: Laboratory Tests 11/02/23 11/02/23 15:46 15:46 WBC 3.7 L RBC 3.96 L Hgb 11.3 L Hct 35.0 L MCV 88.4 MCH 28.5 MCHC 32.3 RDW 13.5 Plt Count 69 L MPV 12.4 H Neut # (Auto) 1.4 L Lymph # (Auto) 1.7 [place] # (Auto) 0.4 Eos # (Auto) 0.1 Baso # (Auto) 0.0 Absolute Nucleated RBC 0.00 Nucleated RBC % 0.0 Sodium 137 Potassium 4.2 Chloride 103 Carbon Dioxide 29 Anion Gap 5.0 L BUN 14 Creatinine 0.6 Estimated GFR (MDRD) 99 Glucose 292 H Calcium 10.2 Total Bilirubin 0.9 AST 32 ALT 17 Alkaline Phosphatase 182 H Troponin I High Sens 2.3 Total Protein 6.6 Albumin 3.7 Globulin 2.9 Albumin/Globulin Ratio 1.3 Lipase 39 - Rads (name of study) chest xray Relevant Findings:: Prelim report reviewed, See rad report PD Medical Decision Making - ED course Complexity details: reviewed results, re-evaluated patient, considered differential, d/w patient ED course: asymptomatic during ED stay. Unremarkable testing including EKG (Q waves inferior leads but no ST changes), CXR. Mild pancytopenia but comparable results compared to previous (April 2023). Normal hs-cTn. Results d/w patient. Etiology of patient symptoms is not apparent at this time. Return precautions reviewed, advised to seek follow up with PCP next available appointment for reevaluation. Departure - Departure Disposition: Home, Self Care Clinical Impression: Chest pain Qualifiers: Chest pain type: unspecified Qualified Code(s): R07.9 - Chest pain, unspecified Condition: Good Instructions: ED Chest Pain Atypical Unkn Cause Comments: There were no concerning findings on tonight's tests, including EKG, chest xray, blood tests. The blood tests included a cardiac enzyme blood test (troponin), the result of which was within normal range. These test results are reassuring but they do not entirely rule out possible dangerous causes of your symptoms; for this reason, you should contact your primary care provider's office when they next open (presumably this coming Saturday) to arrange for the next available appointment for follow up/reevaluation. Further testing might be needed even if your symptoms do not recur. Your white blood cell count, red blood cell counts, and your platelet count were all below normal range. However, these results are similar to previous results on our records (for example, very similar results April 2023). Make sure your primary care provider is aware of these results. Discharge Date/Time: 11/02/23 19:15
[2023-11-02 20:55] VITALS: BP 124/72; O2SAT 99
== END 2023-11-02 19:15 | disposition home or self-care (01) ==
LOC: ED 15:21
DX: R07.9 Chest pain, unspecified (principal); E11.9 Type 2 diabetes mellitus without complications; Z79.4 Long term (current) use of insulin; E03.9 Hypothyroidism, unspecified; K75.9 Inflammatory liver disease, unspecified
CPT/HCPCS: 36415; 80053; 83690; 84484; 85025; 93005; 99283; 99284

== ENCOUNTER 2023-12-13 07:57 | Outpatient (CLI) | payer MEDICARE, OTHER ==
[2023-12-13 18:43] LABS: MAGNESIUM 1.4 mg/dL (1.7-2.3)
[2023-12-13 18:50] LABS: ALBUMIN 3.7 g/dL (3.2-5.5); ALBUMIN/GLOBULIN RATIO 1.1 (1.0-2.2); ALKALINE PHOSPHATASE 202 IU/L (42-121); ALT ALANINE AMINOTRANSFERASE 14 IU/L (10-60); AST ASPARTATE AMINOTRANSFERASE 23 IU/L (10-42); BILIRUBIN,TOTAL 0.7 mg/dL (0.2-1.0); BUN - BLOOD UREA NITROGEN 12 mg/dL (6-20); CALCIUM 9.4 mg/dL (8.5-10.3); CARBON DIOXIDE - CO2 29 mmol/L (21-32); CHLORIDE 102 mmol/L (101-111); CHOL/HDL RATIO 2.4 (<4.4); CHOLESTEROL 137 mg/dL; CREATININE 0.6 mg/dL (0.6-1.3); GFR - MDRD 99 (>89); GLUCOSE 267 mg/dL (74-104); HDL CHOLESTEROL 57 mg/dL; LDL CHOLESTEROL,CALCULATED 59 mg/dL; POTASSIUM 4.3 mmol/L (3.5-4.5); SODIUM 137 mmol/L (135-145); TOTAL PROTEIN 7.1 g/dL (6.4-8.9); TRIGLYCERIDES 107 mg/dL; VLDL CHOLESTEROL 21 mg/dL
[2023-12-13 19:14] LABS: THYROID STIMULATING HORMONE 0.85 uIU/mL (0.34-5.60)
[2023-12-13 21:53] LABS: ESTIMATED AVERAGE GLUCOSE 260 mg/dL (70-100); HEMOGLOBIN A1c% 10.7 % (4.27-6.07)
== END 2023-12-13 07:58 | disposition home or self-care (01) ==
LOC: LAB.N 07:57
PROVIDERS: ATTEND Physician Assistant Medical
DX: E78.00 Pure hypercholesterolemia, unspecified (principal); E11.9 Type 2 diabetes mellitus without complications; E83.42 Hypomagnesemia; E03.9 Hypothyroidism, unspecified
CPT/HCPCS: 36415; 80053; 80061; 83036; 83721; 83735; 84443